=== PATIENT | male | born 1940 | race Caucasian/White ===

== ENCOUNTER 2022-04-15 06:04 | Inpatient (IN) | payer MEDICARE, SELFPAY ==
[2022-04-15] VITALS (8 sets, daily range): BP systolic 108–152; BP diastolic 60–77; PULSE 49–65; RESP 16–20; TEMP 36.6–36.8; O2SAT 93–99; BMI 24.2
--- NOTE | 2022-04-15 06:31 | CRLHL7_ITS ---
For Patients: As a result of the Century Cures Act, medical imaging exams and procedure reports are released immediately into your electronic medical record. You may view this report before your referring provider. If you have questions, please contact your health care provider. INDICATION: Left lower quadrant pain. TECHNIQUE: CT of the abdomen and pelvis without intravenous contrast. Coronal and sagittal reconstructions. COMPARISON: CTA chest, abdomen, pelvis 10/31/2021. FINDINGS: There is a stable small low-attenuation lesion in the left hepatic lobe which is too small to characterize but likely benign. Status post splenectomy. The unenhanced gallbladder, pancreas, and adrenal glands are normal in appearance. No biliary dilation. Tiny nonobstructing right renal caliceal stone. Small cyst in the upper pole of the right kidney. Multiple left renal cortical and parapelvic cysts. No hydronephrosis or ureteral dilation. No obstructing urinary calculi identified. The bladder is normal in appearance. Mildly enlarged prostate gland with calcifications. The stomach is distended and fluid-filled. There are multiple significantly dilated fluid-filled loops of proximal small bowel with transition point in the left lower quadrant compatible with obstruction. This is likely due to adhesions. Small bowel anastomosis in the anterior mid abdomen. Postoperative changes of the sigmoid colon. Mild amount of stool. The appendix is not identified. No intraperitoneal free air or fluid. No pneumatosis. Tiny fat containing ventral hernia just above the umbilicus. Small fat containing left inguinal hernia. Aortoiliac vascular calcifications. No lymphadenopathy. Degenerative changes of the spine. Mild elevation of the left hemidiaphragm. The lung bases are clear. Coronary artery calcifications. Pacemaker leads in the right atrium and right ventricle. IMPRESSION: Proximal small bowel obstruction with transition point in the left lower quadrant likely due to adhesions. Please note that all CT scans at this facility use dose modulation, iterative reconstruction, and/or weight-based dosing when appropriate to reduce radiation dose to as low as reasonably achievable. Dictated by Izzy Em MD @ 04/15/2022 8:15:15 AM (Electronically Signed)
--- NOTE | 2022-04-15 06:39 | ED.GENADULT ---
HPI - General Adult General Date Seen: 04/15/22 Chief complaint: Nausea/Vomiting Stated complaint: vomiting Time Seen by Provider: 04/15/22 06:06 Source: patient Mode of arrival: ambulatory Limitations: no limitations History of Present Illness HPI narrative: Patient is an 81-year-old male who presents with two days of recurrent vomiting. He has had no diarrhea, fevers, chills. He has not noticed any blood in the vomitus but he has been eating cherries which has discolored it of course. No black stool or blood in his stool but he has only passed a very small amount couple of days ago. He had a firm spot in his abdomen yesterday that has resolved. This was located in the left lower quadrant. He denies runny nose or cough. He has some generalized aching but this is not severe. He has a history of diverticulitis with bowel obstruction requiring colostomy. This was later taken down. This occurred about 12 years ago. He has eaten very little but has been able to keep some fluids down. Related Data Home Medications Medication Instructions Recorded Confirmed amlodipine 10 mg tablet 5 mg PO DAILY 04/15/22 04/15/22 apixaban 2.5 mg tablet (Eliquis) 2.5 mg PO BID 04/15/22 04/15/22 aspirin 81 mg chewable tablet 1 tab PO DAILY 04/15/22 04/15/22 atorvastatin 20 mg tablet 20 mg PO DAILY 04/15/22 04/15/22 levetiracetam 500 mg tablet 500 mg PO BID 04/15/22 04/15/22 lisinopril 10 mg tablet 10 mg PO DAILY 04/15/22 04/15/22 metoprolol succinate 50 mg 50 mg PO DAILY 04/15/22 04/15/22 tablet,extended release 24 hr Allergies Allergy/AdvReac Type Severity Reaction Status Date / Time No Known Drug Allergies Allergy Verified 04/15/22 06:17 Review of Systems Status of ROS: Reports: 10 or more systems reviewed and unremarkable except as noted in History and below [facility] Medical History (Updated 04/15/22 @ 08:35 by Brandon Quinn MD) Afib Basal cell carcinoma Coronary artery disease CVA (cerebral vascular accident) Diverticulitis History of cardiac arrest History of complete heart block Pacemaker Surgical History (Updated 07/27/22 @ 06:20 by Ashlyn Verma RN) History of appendectomy History of colostomy Post-splenectomy Social History Smoking Status: Never smoker Do you use any of these nicotine containing products: None Second hand tobacco smoke exposure: No How often do you have a drink containing alcohol: 2-4 times a month How many standard drinks containing alcohol do you have on a typical day: 1 or 2 How often do you have six or more drinks on one occasion: Never AUDIT-C Alcohol total score: 2 Non-prescribed substance use: denies use Exam Narrative: Exam Narrative: Vitals noted. HEENT: Conjunctiva clear. Tympanic membranes are pearly white bilaterally. Posterior pharynx is clear without erythema or exudate. Neck is supple without adenopathy, thyromegaly, carotid bruit. Lungs: Clear to auscultation in all gonzalez. No wheezes, rales, rhonchi. Heart: Regular rate and rhythm without murmur. Abdomen: Soft and nontender. No guarding, rigidity, rebound. Bowel sounds are normal. No palpable masses. Old healed surgical scars. Extremities: No cyanosis or edema. Good distal pulses. Skin: No abnormalities noted of the exposed skin. Neurologic: Awake, alert, fully oriented. Neurologic exam is nonfocal. Const: Vital Signs, click to edit/add: Vital Signs - 24 hr 04/15/22 06:14 Temperature 97.8 F Pulse Rate [Right Pulse Oximeter] 65 Respiratory Rate 16 Blood Pressure [Ri ght Upper Arm] 150/77 H Pulse Oximetry 95 Course Course Hospital Course: Patient is seen and examined. I have ordered a L of normal saline and 4 mg of IV Zofran. Labs and CT scan of his abdomen are ordered. Reevaluation(s) Reevaluation #1: Patient's labs have returned normal. He has had no vomiting or pain. CT confirms a proximal small-bowel obstruction likely due to adhesions. We have not placed an NG tube at this time. I spoke with Dr. Gallo from surgery and Dr. Silva from the hospital service and we will plan to admit. COVID test is ordered. Vital Signs Vital signs: Initial Vital Signs Temperature 97.8 F 04/15/22 06:14 Temperature Source Temporal Artery Scan 04/15/22 06:14 Pulse Rate 65 04/15/22 06:14 Pulse Rhythm 04/15/22 06:14 Respiratory Rate 16 04/15/22 06:14 Blood Pressure 150/77 H 04/15/22 06:14 Blood Pressure Mean 101 04/15/22 06:14 Blood Pressure Position Sitting 04/15/22 06:14 Pulse Oximetry 95 04/15/22 06:14 Oxygen Delivery Method 04/15/22 06:14 Vital Signs Temperature 97.8 F 04/15/22 06:14 Pulse Rate 65 04/15/22 06:14 Respiratory Rate 16 04/15/22 06:14 Blood Pressure 150/77 H 04/15/22 06:14 Pulse Oximetry 95 04/15/22 06:14 Temperature 97.8 F 04/15/22 06:14 Pulse Rate 65 04/15/22 06:14 Respiratory Rate 16 04/15/22 06:14 Blood Pressure 150/77 H 04/15/22 06:14 Pulse Oximetry 95 04/15/22 06:14 Medical Decision Making Lab Data Labs: Lab Results 04/15/22 04/15/22 Range/Units 06:40 06:41 WBC 11.89 H (4.50-11.00) K/uL RBC 4.26 L (4.30-5.90) m/uL Hgb 13.1 L (13.5-17.5) gm/dL Hct 39.8 (37.0-53.0) % MCV 93 (80-100) fL MCH 31 (26-34) pg MCHC 33 (32-36) gm/dL RDW Coeff of Sera 14.1 (11.5-15.5) % Plt Count 282 (140-440) K/uL Neut % (Auto) 86.6 H (42.0-72.0) % Lymph % (Auto) 6.8 L (20-44) % Hitchcock % (Auto) 5.6 (0.0-11.0) % Eos % (Auto) 0.1 (0.0-7.0) % Baso % (Auto) 0.2 (0.0-3.0) % Neut # (Auto) 10.30 H (1.7-7.0) K/uL Lymph # (Auto) 0.80 L (0.90-2.90) K/uL Hitchcock # (Auto) 0.70 (0.00-0.90) K/UL Eos # (Auto) 0.00 (0.00-0.50) K/uL Baso # (Auto) 0.00 (0.00-0.30) K/uL Abs Immat Gran (auto) 0.08 (0.00-0.30) K/uL Sodium 138 (135-149) mmol/L Potassium 4.4 (3.6-5.1) mmol/L Chloride 102 (96-114) mmol/L Carbon Dioxide 27 (20-32) mmol/L BUN 28 (7-30) mg/dL Creatinine 1.3 (0.5-1.5) mg/dL Estimated Creat Clear 39.53 Estimated GFR 55 ml/min Glucose 188 H (60-115) mg/dL Calcium 9.5 (8.4-10.6) mg/dL Total Bilirubin 1.1 (0.1-1.5) mg/dL Direct Bilirubin 0.2 (0.0-0.5) mg/dL AST 31 (12-35) U/L ALT 36 (4-50) U/L Alkaline Phosphatase 110 (40-150) U/L Total Protein 7.7 (6.0-8.3) g/dL Albumin 4.3 (3.3-5.0) g/dL Lipase 51 (23-300) U/L Discharge Plan Discharge Clinical Impression: SBO (small bowel obstruction) Patient Disposition: Admitted As Inpatient Condition: Stable Activity Level: Activity as Tolerated Diet Detail: NPO
[2022-04-15] MEDS: 0.9 % SODIUM CHLORIDE 1000 ml 1,000 ML IV (06:42)
[2022-04-15] MEDS: ONDANSETRON 2 MG/ML inj 4 MG IVP ×2 (06:42→11:10)
[2022-04-15 06:47] LABS: Basophils Percent Auto 0.2 % (0.0-3.0); Eosinophils Percent Auto 0.1 % (0.0-7.0); Hematocrit 39.8 % (37.0-53.0); Hemoglobin* 13.1 gm/dL (13.5-17.5); Immature Granulocytes Abs Auto 0.08 K/uL (0.00-0.30); Lymphocytes Percent Auto 6.8 % (20-44); Mean Corpuscular HGB Conc 33 gm/dL (32-36); Mean Corpuscular Hemoglobin 31 pg (26-34); Mean Corpuscular Volume 93 fL (80-100); Monocytes Percent Auto 5.6 % (0.0-11.0); Neutrophils Percent Auto 86.6 % (42.0-72.0); Platelet Count* 282 K/uL (140-440); RDW Coefficient of Variation % 14.1 % (11.5-15.5); Red Blood Count 4.26 m/uL (4.30-5.90); White Blood Count* 11.89 K/uL (4.50-11.00)
[2022-04-15 06:51] LABS: Slide Review Reflex No
[2022-04-15 07:00] LABS: Albumin* 4.3 g/dL (3.3-5.0); Chloride* 102 mmol/L (96-114)
[2022-04-15 07:01] LABS: Potassium* 4.4 mmol/L (3.6-5.1); Sodium* 138 mmol/L (135-149)
[2022-04-15 07:03] LABS: Alkaline Phosphatase* 110 U/L (40-150); Aspartate Amino Transferase* 31 U/L (12-35); Bilirubin Direct* 0.2 mg/dL (0.0-0.5); Bilirubin Total* 1.1 mg/dL (0.1-1.5); Carbon Dioxide* 27 mmol/L (20-32); Creatinine* 1.3 mg/dL (0.5-1.5); Est. Creatinine Clearance* 39.53; Estimated Glomerular Filt Rate 55 ml/min; Total Protein* 7.7 g/dL (6.0-8.3)
[2022-04-15 07:04] LABS: Alanine Aminotransferase* 36 U/L (4-50); Blood Urea Nitrogen* 28 mg/dL (7-30); Calcium* 9.5 mg/dL (8.4-10.6); Glucose* 188 mg/dL (60-115); Lipase* 51 U/L (23-300)
--- NOTE | 2022-04-15 07:51 | ED.NURSE ---
patient is sleeping in the bed and with tv on.
--- NOTE | 2022-04-15 08:42 | ED.NURSE ---
township supervisor given heads up at [phone]
--- NOTE | 2022-04-15 09:04 | W.PC.EDHO ---
Primary Language: Preferred Language: Orientation Status: [] Alert & Oriented [] Slight Confusion [] Known Dx Dementia Transfers By: [] Assist of 1 [] Assist of 2 [] Lift Active Medications Generic Name Dose Route Start Last Admin Trade Name Freq PRN Reason Stop Dose Admin Amlodipine Besylate 2.5 mg 04/15/22 09:00 04/15/22 07:10 Amlodipine 10 Mg Tablet PO Not Given DAILY SARI Lisinopril 5 mg 04/15/22 09:00 04/15/22 07:10 Lisinopril 10 Mg Tablet PO Not Given DAILY SARI Discontinued Medications Generic Name Dose Route Start Last Admin Trade Name Freq PRN Reason Stop Dose Admin Sodium Chloride 1,000 mls @ 1,000 mls/hr 04/15/22 06:32 04/15/22 06:42 0.9 % Sodium Chloride 1000 Ml IV 04/15/22 07:31 1,000 mls/hr .Q1H ONE Administration Ondansetron HCl 4 mg 04/15/22 06:31 04/15/22 06:42 Ondansetron 2 Mg/Ml Inj IVP 04/15/22 06:32 4 mg ONCE ONE Administration Description of Symptoms ED Triage Present Problem 2d ago ate bag of cherries, vomited at least a Description dozen times yesterday, still vomiting today. comes in stating purple vomit, denies pain. last bm 2d ago. states maybe fever because he felt hot. ED Triage Date of Onset of 04/14/22 Symptoms IV Insertion/Site Date of IV Line Insertion [ 04/15/22 Right Upper Arm] Oxygen Administration Pulse Oximetry 95 Oxygen Delivery Method Room Air
--- NOTE | 2022-04-15 09:21 | P.GSCN_ITS ---
History of Present Illness Consult details Consult date: 04/15/22 Narrative: the patient is an 81-year-old male who presents to the emergency department today with a several day history of nausea and vomiting. He states that he had a bowel movement last 3 days ago which is abnormal for him since he normally has bowel movements daily. He states that he has mild tenderness in his left lower abdomen. He had pain here previously when he had an episode of diverticulitis many years ago, however he thinks that this is less severe. He has not had a fever but he has felt clammy. Because he was unable to keep anything down he came in to be seen. He was found to have a small-bowel obstruction. His surgical history is significant for colostomy after episode of diverticulitis. He had a colostomy takedown subsequently. This was over a decade ago. He has had his appendix out as well. He has never had a bowel obstruction that he knows of. Review of Systems Status of ROS: Reports: 10 or more systems reviewed and unremarkable except as noted in History and below [facility] Medical History (Updated 04/15/22 @ 08:35 by Brandon Quinn MD) Afib Basal cell carcinoma Coronary artery disease CVA (cerebral vascular accident) Diverticulitis History of cardiac arrest History of complete heart block Pacemaker Surgical History (Updated 04/15/22 @ 06:20 by Ashlyn Verma RN) History of appendectomy History of colostomy Post-splenectomy Social History Highest level of school completed/degree received: high school graduate Smoking Status: Never smoker Do you use any of these nicotine containing products: None Second hand tobacco smoke exposure: No How often do you have a drink containing alcohol: 2-4 times a month How many standard drinks containing alcohol do you have on a typical day: 1 or 2 How often do you have six or more drinks on one occasion: Never AUDIT-C Alcohol total score: 2 Non-prescribed substance use: denies use Caffeine: No service: Yes ([employer]) Meds Home Medications and Allergies Home Medications Medication Instructions Recorded Confirmed Type amlodipine 10 mg tablet 5 mg PO DAILY 04/15/22 04/15/22 History apixaban 2.5 mg tablet (Eliquis) 2.5 mg PO BID 04/15/22 04/15/22 History aspirin 81 mg chewable tablet 1 tab PO DAILY 04/15/22 04/15/22 History atorvastatin 20 mg tablet 20 mg PO DAILY 04/15/22 04/15/22 History levetiracetam 500 mg tablet 500 mg PO BID 04/15/22 04/15/22 History lisinopril 5 mg tablet 5 mg PO DAILY 04/15/22 04/15/22 History metoprolol succinate 50 mg 50 mg PO DAILY 04/15/22 04/15/22 History tablet,extended release 24 hr Allergies Allergy/AdvReac Type Severity Reaction Status Date / Time No Known Drug Allergies Allergy Verified 04/15/22 06:17 Exam Narrative: Exam Narrative: General appearance: Alert, cooperative, and in no distress Eyes: PERRLA, eye lids clear, and sclera white HENT Head: Normocephalic Pulmonary: Clear to auscultation bilaterally Cardiovascular Heart: regular rate Extremities: warm and well perfused Gastrointestinal Abdominal: soft. nondistended. Mildly tender in the left lower quadrant. Surgical scars are faint. No hernias palpable. bowel sounds are pre sent. Musculoskeletal: Extremities: Upper: Both upper extremities have normal joint range of motion and intact strength. Lower: Both lower extremities have normal joint range of motion and intact strength. Skin: Normal skin color, texture, and turgor. No rashes or lesions. Neurologic: No focal deficits Psychiatric: Alert, oriented, cooperative, normal affect. Const: Vital Signs, click to edit/add: Vital Signs - 24 hr 04/15/22 06:14 Temperature 97.8 F Pulse Rate [Right Pulse Oximeter] 65 Respiratory Rate 16 Blood Pressure [Ri ght Upper Arm] 150/77 H Pulse Oximetry 95 Results Labs Labs: Abnormal lab results 04/15/22 04/15/22 Range/Units 06:40 06:41 WBC 11.89 H (4.50-11.00) K/uL RBC 4.26 L (4.30-5.90) m/uL Hgb 13.1 L (13.5-17.5) gm/dL Neut % (Auto) 86.6 H (42.0-72.0) % Lymph % (Auto) 6.8 L (20-44) % Neut # (Auto) 10.30 H (1.7-7.0) K/uL Lymph # (Auto) 0.80 L (0.90-2.90) K/uL Glucose 188 H (60-115) mg/dL Diabetes panel 04/15/22 Range/Units 06:40 Sodium 138 (135-149) mmol/L Potassium 4.4 (3.6-5.1) mmol/L Chloride 102 (96-114) mmol/L Carbon Dioxide 27 (20-32) mmol/L BUN 28 (7-30) mg/dL Creatinine 1.3 (0.5-1.5) mg/dL Glucose 188 H (60-115) mg/dL Calcium 9.5 (8.4-10.6) mg/dL AST 31 (12-35) U/L ALT 36 (4-50) U/L Alkaline Phosphatase 110 (40-150) U/L Total Protein 7.7 (6.0-8.3) g/dL Albumin 4.3 (3.3-5.0) g/dL Calcium panel 04/15/22 Range/Units 06:40 Calcium 9.5 (8.4-10.6) mg/dL Albumin 4.3 (3.3-5.0) g/dL Pituitary panel 04/15/22 Range/Units 06:40 Sodium 138 (135-149) mmol/L Potassium 4.4 (3.6-5.1) mmol/L Chloride 102 (96-114) mmol/L Carbon Dioxide 27 (20-32) mmol/L BUN 28 (7-30) mg/dL Creatinine 1.3 (0.5-1.5) mg/dL Glucose 188 H (60-115) mg/dL Calcium 9.5 (8.4-10.6) mg/dL Adrenal panel 04/15/22 Range/Units 06:40 Sodium 138 (135-149) mmol/L Potassium 4.4 (3.6-5.1) mmol/L Chloride 102 (96-114) mmol/L Carbon Dioxide 27 (20-32) mmol/L BUN 28 (7-30) mg/dL Creatinine 1.3 (0.5-1.5) mg/dL Glucose 188 H (60-115) mg/dL Calcium 9.5 (8.4-10.6) mg/dL Total Bilirubin 1.1 (0.1-1.5) mg/dL AST 31 (12-35) U/L ALT 36 (4-50) U/L Alkaline Phosphatase 110 (40-150) U/L Total Protein 7.7 (6.0-8.3) g/dL Albumin 4.3 (3.3-5.0) g/dL All other labs normal. Imaging CT scan - pelvis: report reviewed and image reviewed (Patient: Favian Crooks RMR#: [id number]: [id number]:[id number]: EDService Date: 04/15/22Attending Dr: Ordering Physician: Brandon Quinn M.D. Date of Service: 04/15/22 Procedure(s): CT abdomen pelvis wo con Accession Number(s): [id number] cc: Brandon Quinn M.D.; Fabienne Gill ) Assessment and Plan Assessment and plan (1) SBO (small bowel obstruction): Status: Acute (2) Afib: Status: Acute (3) Pacemaker: Status: Acute Plan Patient is an 81-year-old male with a small-bowel obstruction likely secondary to adhesions given his surgical history. There is a transition point noted. Because of this I recommend a Gastrografin challenge. I explained to the patient that often times small-bowel obstructions will resolve however the Gastrografin may be diagnostic as well as therapeutic. If he develops severe nausea and vomiting I would recommend an NG to be placed, however since he is quite comfortable now with minimal pain or distension I think it is okay to hold off. I explained that if his obstruction does not resolve 48 hours after consuming the Gastrografin the we would recommend surgery. His Eliquis should be put on hold at this point in the event that he would need surgery going forward. I did place order for the Gastrografin and we will obtain serial x- rays.
[2022-04-15 09:25] LABS: SARS PCR* Negative SARS-CoV-2 (Negative)
[2022-04-15] MEDS: LACTATED RINGERS 1000 ML 1,000 ML 100 ML IV ×2 (11:07→20:43)
--- NOTE | 2022-04-15 12:23 | P.IMHP_ITS ---
Hospitalist- H&P: HPI History of Present Illness Date Seen: 04/15/22 Chief complaint: vomiting Narrative: Favian Crooks is a 81 year old male with past medical history of appendectomy; hx of splenectomy; hx of colostomy, atrial fibrillation (on eliquis) presenting to ED for evaluation of abdominal pain. Over the past 24 hours he has had progressive worsening abdominal pain, crampy in nature. Associated symptoms have included nausea and vomiting. He denies chest pain, sob, fever, headache, dizziness. He continued to have dry heaving today. He presented to ED where notable workup included CT AP showed Proximal small bowel obstruction with transition point in the left lower quadrant likely due to adhesions. Review of Systems Status of ROS: Reports: 10 or more systems reviewed and unremarkable except as noted in History and below [facility] Medical History Afib Basal cell carcinoma Coronary artery disease CVA (cerebral vascular accident) Diverticulitis History of cardiac arrest History of complete heart block Pacemaker Surgical History History of appendectomy History of colostomy Post-splenectomy Social History Highest level of school completed/degree received: high school graduate Smoking Status: Never smoker Do you use any of these nicotine containing products: None Second hand tobacco smoke exposure: No How often do you have a drink containing alcohol: 2-4 times a month How many standard drinks containing alcohol do you have on a typical day: 1 or 2 How often do you have six or more drinks on one occasion: Never AUDIT-C Alcohol total score: 2 Non-prescribed substance use: denies use Caffeine: No service: Yes ([employer]) Meds Home Medications and Allergies Home Medications Medication Instructions Recorded Confirmed Type amlodipine 10 mg tablet 5 mg PO DAILY 04/15/22 04/15/22 History apixaban 2.5 mg tablet (Eliquis) 2.5 mg PO BID 04/15/22 04/15/22 History aspirin 81 mg chewable tablet 1 tab PO DAILY 04/15/22 04/15/22 History atorvastatin 20 mg tablet 20 mg PO DAILY 04/15/22 04/15/22 History levetiracetam 500 mg tablet 500 mg PO BID 04/15/22 04/15/22 History lisinopril 5 mg tablet 5 mg PO DAILY 04/15/22 04/15/22 History metoprolol succinate 50 mg 50 mg PO DAILY 04/15/22 04/15/22 History tablet,extended release 24 hr Allergies Allergy/AdvReac Type Severity Reaction Status Date / Time No Known Drug Allergies Allergy Verified 04/15/22 06:17 Exam Narrative: Exam Narrative: Gen: No acute distress HEENT: NCAT EOMI MMM CV: Bradycardic; normal s1 s2 LUngs: CTAB Abd: MIld distention; no rebound or guarding MSK: age appropriate muscle mass Neuro: Alert, oriented, CN grossly intact Psyche: appropriate affect Skin; Warm, dry no rash on face Const: Vital Signs, click to edit/add: Vital Signs - 24 hr 04/15/22 06:14 04/15/22 07:05 04/15/22 09:05 Temperature 97.8 F Pulse Rate [Right Pulse Oximeter] 65 55 L 49 L Respiratory Rate 16 18 16 Blood Pressure [Ri ght Arm] Blood Pressure [Ri ght Upper Arm] 150/77 H 110/62 108/60 Pulse Oximetry 95 96 97 04/15/22 10:54 04/15/22 11:27 04/15/22 11:49 Temperature 98.2 F Pulse Rate [Right Pulse Oximeter] Respiratory Rate 20 20 Blood Pressure [Ri ght Arm] 152/72 H Blood Pressure [Ri ght Upper Arm] Pulse Oximetry 95 95 96 Hospitalist - H&P: Result Labs Labs: Short CBC 04/15/22 Range/Units 06:41 WBC 11.89 H (4.50-11.00) K/uL Hgb 13.1 L (13.5-17.5) gm/dL Hct 39.8 (37.0-53.0) % Plt Count 282 (140-440) K/uL BMP 04/15/22 06:40 Sodium 138 Potassium 4.4 Chloride 102 Carbon Dioxide 27 BUN 28 Creatinine 1.3 Glucose 188 H Calcium 9.5 Liver Function 04/15/22 Range/Units 06:40 Total Bilirubin 1.1 (0.1-1.5) mg/dL Direct Bilirubin 0.2 (0.0-0.5) mg/dL AST 31 (12-35) U/L ALT 36 (4-50) U/L Alkaline Phosphatase 110 (40-150) U/L Albumin 4.3 (3.3-5.0) g/dL Imaging CT scan - abdomen: Radiologist's impression: Proximal small bowel obstruction with transition point in the left lower quadrant likely due to adhesions. Assessment and Plan Assessment and plan (1) SBO (small bowel obstruction): Status: Acute Plan Assessment: Favian Crooks is a 81 year old male with past medical history of appendectomy; hx of splenectomy; hx of colostomy, atrial fibrillation (on eliquis) presenting to ED for evaluation of abdominal pain. He presented to ED where notable workup included CT AP showed Proximal small bowel obstruction with transition point in the left lower quadrant likely due to adhesions. 1. Proximal Small Bowel obstruction -npo -MIVF -pain control -antiemetics -surgery consult -Xray/SBFT 2. Hx of Atrial Fibrillation -hold eliquis -hold metoprolol due to bradycardia 3. Hx of HTN -hold antihypertensives 4. Hx of CVA -hold eliquis -hold aspirin and statin 5. Hx of Seizure d/o -continue keppra; switch to IV Code-Full code DVT ppx -SCD
--- NOTE | 2022-04-15 16:41 | PC.NURSE ---
Pt has been on Keppra PO at home he has filled the medication at [facility] and the medication was ordered by Dr. Gill in December, per [place] pharmacy.
--- NOTE | 2022-04-15 18:00 | CRLHL7_ITS ---
For Patients: As a result of the Century Cures Act, medical imaging exams and procedure reports are released immediately into your electronic medical record. You may view this report before your referring provider. If you have questions, please contact your health care provider. Indication: Small-bowel obstruction Technique: Supine images of the abdomen Comparison: Portions of a CT from April 15 2022 Findings: The small bowel appears to be slightly less dilated than it did on the CT. There is contrast or other radiodense material in the stomach, duodenum and proximal small bowel. No obvious free air Impression: Small bowel appears slightly less dilated than it did previously. Dictated by Demetrius Moses MD @ 04/15/2022 6:26:04 PM (Electronically Signed)
--- NOTE | 2022-04-15 18:45 | PC.NURSE ---
shift [id number] pt admitted to unit from ED, zofran IV given for nausea. PT NPO, abdomen firm and tender. Pt had 1 observed large loose stool in toilet and three more reported BMs loose per pt report. abdomen soft and non tender after BM, no c/o nausea or vomiting. MD notified. pt comfortable and cooperative at this time.
[2022-04-16 03:00] VITALS: BP 156/76; PULSE 60; RESP 18; TEMP 36.6; O2SAT 97
--- NOTE | 2022-04-16 05:35 | PC.NURSE ---
Shift 7p-7a: Pt. AOx4, following commands. VSS on RA. Pt. receiving LR infusion at 100mL/hr, ambulating to toilet w/o difficulty, voiding well. Plan for repeat KUB diagnostic this AM to see if pt. is clearing contrast from yesterday.
[2022-04-16] MEDS: LACTATED RINGERS 1000 ML 1,000 ML 100 ML IV (06:23)
--- NOTE | 2022-04-16 07:00 | CRLHL7_ITS ---
For Patients: As a result of the Century Cures Act, medical imaging exams and procedure reports are released immediately into your electronic medical record. You may view this report before your referring provider. If you have questions, please contact your health care provider. Indication: Small bowel obstruction. Gastrografin challenge. Technique: Abdomen 2 view. Comparison: April 15, 2022. Findings/Impression: Bowel: Previously ingested oral contrast is seen mostly in the proximal colon and rectum. Bowel pattern is within normal limits. No overt obstructive changes. Soft tissues: No sign of free air. No sign of soft tissue mass. No suspicious calcifications. Bones: Unremarkable for age. Dictated by Freddy Torres MD @ 04/16/2022 7:24:47 AM (Electronically Signed)
[2022-04-16 07:51] LABS: Chloride* 112 mmol/L (96-114); Potassium* 4.9 mmol/L (3.6-5.1); Sodium* 139 mmol/L (135-149)
[2022-04-16 07:53] LABS: Creatinine* 1.1 mg/dL (0.5-1.5); Est. Creatinine Clearance* 46.72; Estimated Glomerular Filt Rate 67 ml/min
[2022-04-16 07:54] LABS: Blood Urea Nitrogen* 24 mg/dL (7-30); Calcium* 8.9 mg/dL (8.4-10.6); Carbon Dioxide* 20 mmol/L (20-32); Glucose* 97 mg/dL (60-115)
[2022-04-16 07:55] LABS: Basophils Percent Auto 0.5 % (0.0-3.0); Eosinophils Percent Auto 4.9 % (0.0-7.0); Hematocrit 37.1 % (37.0-53.0); Hemoglobin* 12.3 gm/dL (13.5-17.5); Immature Granulocytes Abs Auto 0.04 K/uL (0.00-0.30); Lymphocytes Percent Auto 19.7 % (20-44); Mean Corpuscular HGB Conc 33 gm/dL (32-36); Mean Corpuscular Hemoglobin 31 pg (26-34); Mean Corpuscular Volume 94 fL (80-100); Monocytes Percent Auto 14.6 % (0.0-11.0); Platelet Count* 253 K/uL (140-440); RDW Coefficient of Variation % 14.2 % (11.5-15.5); Red Blood Count 3.97 m/uL (4.30-5.90)
[2022-04-16 07:56] LABS: Slide Review Reflex No
--- NOTE | 2022-04-16 10:05 | PM.GSPN ---
Subjective Subjective Date Seen: 04/16/22 Interval history: The patient is doing well today. He has had copious bowel movements yesterday and overnight. He has no abdominal pain. He is hungry and would like to discharge home. Exam Narrative: Exam Narrative: General: No acute distress CV: Regular rate respiratory: Clear to auscultation bilaterally abdomen: Soft, nontender, nondistended. Const: Vital Signs, click to edit/add: Vital Signs - 24 hr 04/15/22 10:54 04/15/22 11:27 04/15/22 11:49 Temperature 98.2 F Pulse Rate [Pulse Oximeter] Respiratory Rate 20 20 Blood Pressure [Ri ght Arm] 152/72 H Pulse Oximetry 95 95 96 04/15/22 19:00 04/15/22 22:49 04/16/22 03:00 Temperature 98.1 F 98.2 F 97.8 F Pulse Rate [Pulse Oximeter] 60 Respiratory Rate 18 18 18 Blood Pressure [Ri ght Arm] 137/67 138/71 156/76 H Pulse Oximetry 93 99 97 Labs/Imaging Labs Labs: White blood cell count remains elevated at 11, however no left shift. Imaging Imaging: x-ray reviewed. No signs of obstruction. Contrast is within the colon. Progress Note: A&P Assessment and plan (1) SBO (small bowel obstruction): Status: Acute Plan The patient is an 81-year-old male with a small-bowel obstruction, now resolved. This is evidenced by his clinical improvement as well as his x-ray. He may advance to regular diet discharge home. He can restart his Eliquis. He should follow up with his primary care provider parianna.
[2022-04-16 10:09] VITALS: PULSE 60; RESP 18
[2022-04-16 10:11] VITALS: BP 150/78; PULSE 60; RESP 18; TEMP 36.7; O2SAT 97
--- NOTE | 2022-04-16 12:59 | PC.NURSE ---
Pt given d/c instructions and verbalized understanding. D/c home and denies nausea or pain. SL removed intact.
== END 2022-04-16 12:18 | disposition home or self-care (01) | DRG 389 ==
LOC: ED 08:35 → MEDSURG 15:19
PROVIDERS: Family Medicine; Admitting Provider Hospitalist; Emergency Provider Family Medicine; PCP Family Medicine; Visit Provider Hospitalist
DX: K56.50 Intestinal adhesions [bands], unspecified as to partial versus complete obstruction (principal); I44.2 Atrioventricular block, complete; I48.91 Unspecified atrial fibrillation; I25.10 Atherosclerotic heart disease of native coronary artery without angina pectoris; Z86.73 Personal history of transient ischemic attack (TIA), and cerebral infarction without residual deficits; Z95.0 Presence of cardiac pacemaker; Z79.01 Long term (current) use of anticoagulants; I10 Essential (primary) hypertension; Z90.81 Acquired absence of spleen; G40.909 Epilepsy, unspecified, not intractable, without status epilepticus; Z85.828 Personal history of other malignant neoplasm of skin
CPT/HCPCS: 36415; 74018; 74176; 80048; 80076; 83690; 85025; 87635; 99284; 99285; J1953; J2405; J7030; J7120; Q9963

== ENCOUNTER 2022-06-09 14:52 | Emergency (ER) | payer MEDICARE, SELFPAY ==
[2022-06-09] VITALS (32 sets, daily range): BP systolic 59–223; BP diastolic 39–118; PULSE 44–109; RESP 13–25; TEMP 37.1; O2SAT 88–100; BMI 25.0
--- NOTE | 2022-06-09 15:17 | ED_ITS ---
HPI - General Adult General Chief complaint: Abdominal Pain Stated complaint: Sharp stomach pains, L hand numb Time Seen by Provider: 06/09/22 15:09 History of Present Illness HPI narrative: This 81-year-old male is brought in by a friend of the family. He reports some tingling sensation in his left hand this started about an hour and half prior to arrival, about 2 p.m. today. He did not have any weakness or altered speech. He is not showing any unilateral weakness. On the way here he began having rather severe abdominal pain just left of midline. At the time of my initial visit his neurologic exam is normal but he is rather uncomfortable with this abdominal pain. He states that he has a history of kidney stones. He does not report any dysuria or flank pain. Related Data Home Medications Medication Instructions Recorded Confirmed amlodipine 10 mg tablet 5 mg PO DAILY 04/15/22 04/15/22 apixaban 2.5 mg tablet (Eliquis) 2.5 mg PO BID 04/15/22 04/15/22 aspirin 81 mg chewable tablet 1 tab PO DAILY 04/15/22 04/15/22 atorvastatin 20 mg tablet 20 mg PO DAILY 04/15/22 04/15/22 levetiracetam 500 mg tablet 500 mg PO BID 04/15/22 04/15/22 lisinopril 5 mg tablet 5 mg PO DAILY 04/15/22 04/15/22 metoprolol succinate 50 mg 50 mg PO DAILY 04/15/22 04/15/22 tablet,extended release 24 hr Allergies Allergy/AdvReac Type Severity Reaction Status Date / Time No Known Drug Allergies Allergy Verified 04/15/22 06:17 Review of Systems Status of ROS: Reports: 10 or more systems reviewed and unremarkable except as noted in History and below Narrative: Constitutional: No fevers, no weight gain or loss. Eyes: No discharge. No vision changes. HENT: No congestion, no sore throat, no ear pain. Cardiovascular: No chest pain, no palpitations. Respiratory: No shortness of breath, no wheezes, no cough. Gastrointestinal: No vomiting, no diarrhea. Abdominal pain as described above. Genitourinary: No dysuria, no hematuria. Musculoskeletal: Normal range of motion. Skin: No rashes, no pruritis. Neurological: No dizziness, weakness, speech change. He reports altered sensation in his left hand. Endo/Heme/Allergies: No bruising or bleeding. No polydipsia. Pysch: no suicidality, no anxiety, no insomnia. All other systems reviewed and are negative. [facility] Medical History Afib Basal cell carcinoma Coronary artery disease CVA (cerebral vascular accident) Diverticulitis History of cardiac arrest History of complete heart block Pacemaker Surgical History History of appendectomy History of colostomy Post-splenectomy Social History Highest level of school completed/degree received: high school graduate Smoking Status: Never smoker Do you use any of these nicotine containing products: None Second hand tobacco smoke exposure: No How often do you have a drink containing alcohol: 2-4 times a month How many standard drinks containing alcohol do you have on a typical day: 1 or 2 How often do you have six or more drinks on one occasion: Never AUDIT-C Alcohol total score: 2 Non-prescribed substance use: denies use Caffeine: No service: Yes ([employer]) Exam 2 Narrative: Exam Narrative: Constitutional: Well-developed, well-nourished, no acute distress. HEENT: Normocephalic, atraumatic. Neck: Normal range of motion. Nontender. Supple. Heart: Regular. No murmurs. Normal rate. Intact distal pulses. Lungs: Clear to auscultation. No chest discomfort. No wheezes, rhonchi, or rales. Abdomen: Normal bowel sounds. Tenderness in the mid upper abdomen just left of midline. No rebound tenderness. Genitalia: Deferred. Back: No midline tenderness. Normal range of motion. Extremities: Normal range of motion. No injury. Skin: Intact. No rash. Warm. No erythema or pallor. Neurologic: No weakness. Alert and oriented. He reports altered sensation in his left hand. No facial asymmetry. Tongue is midline. Salt Lifter strength is equal bilaterally. No pronator drift. He is able to raise each leg from the bed to touch my hand. Psychiatric: No suicidality. No anxiety or depression. No insomnia. Nursing notes and vitals signs are reviewed. Const: Vital Signs, click to edit/add: Vital Signs - 24 hr 06/09/22 15:04 06/09/22 15:50 06/09/22 15:51 Temperature 98.8 F Pulse Rate 93 109 H Pulse Rate [Right Pulse Oximeter] 72 Respiratory Rate 18 Blood Pressure 84/45 L Blood Pressure [Ri ght Upper Arm] 126/89 Pulse Oximetry 96 98 [facility] 06/09/22 15:52 06/09/22 15:55 06/09/22 15:58 Temperature Pulse Rate 105 H 72 80 Pulse Rate [Right Pulse Oximeter] Respiratory Rate Blood Pressure 83/56 L 116/93 H Blood Pressure [Ri ght Upper Arm] Pulse Oximetry 98 97 100 Oxygen Delivery [facility] 06/09/22 16:00 06/09/22 16:01 06/09/22 16:04 Temperature Pulse Rate 75 71 70 Pulse Rate [Right Pulse Oximeter] Respiratory Rate 16 Blood Pressure 110/51 L 74/46 L Blood Pressure [Ri ght Upper Arm] Pulse Oximetry 98 91 100 Oxygen Delivery [facility] 06/09/22 16:05 06/09/22 16:07 06/09/22 16:10 Temperature Pulse Rate 69 72 Pulse Rate [Right Pulse Oximeter] Respiratory Rate 24 16 22 Blood Pressure 80/55 L 59/40 L Blood Pressure [Ri ght Upper Arm] Pulse Oximetry 100 91 99 Oxygen Delivery [facility] 06/09/22 16:11 06/09/22 16:13 06/09/22 16:15 Temperature Pulse Rate 65 66 63 Pulse Rate [Right Pulse Oximeter] Respiratory Rate 20 18 18 Blood Pressure 68/39 L Blood Pressure [Ri ght Upper Arm] Pulse Oximetry 99 100 100 Oxygen Delivery [facility] 06/09/22 16:16 06/09/22 16:19 06/09/22 16:20 Temperature Pulse Rate 69 76 Pulse Rate [Right Pulse Oximeter] Respiratory Rate 21 17 25 H Blood Pressure 72/42 L 78/56 L Blood Pressure [Ri ght Upper Arm] Pulse Oximetry 100 97 96 [facility] 06/09/22 16:22 06/09/22 16:25 06/09/22 16:26 Temperature Pulse Rate 71 77 65 Pulse Rate [Right Pulse Oximeter] Respiratory Rate 18 20 13 Blood Pressure 77/47 L 75/39 L Blood Pressure [Ri ght Upper Arm] Pulse Oximetry 92 97 100 Oxygen Delivery [facility]od 06/09/22 16:28 06/09/22 16:30 06/09/22 16:31 Temperature Pulse Rate 68 70 74 Pulse Rate [Right Pulse Oximeter] Respiratory Rate 16 14 17 Blood Pressure 91/48 L 107/53 L Blood Pressure [Ri ght Upper Arm] Pulse Oximetry 100 97 97 Oxygen Delivery Me thod 06/09/22 16:34 06/09/22 16:35 06/09/22 16:37 Temperature Pulse Rate 80 81 85 Pulse Rate [Right Pulse Oximeter] Respiratory Rate 18 13 17 Blood Pressure 96/61 124/59 L Blood Pressure [Ri ght Upper Arm] Pulse Oximetry 95 100 94 Oxygen Delivery Me thod 06/09/22 16:40 06/09/22 16:41 06/09/22 15:24 Temperature Pulse Rate 92 92 Pulse Rate [Right Pulse Oximeter] 44 L Respiratory Rate 14 14 Blood Pressure 130/58 L Blood Pressure [Ri ght Upper Arm] Pulse Oximetry 95 95 Oxygen Delivery Me thod 06/09/22 15:31 Temperature Pulse Rate Pulse Rate [Right Pulse Oximeter] Respiratory Rate Blood Pressure Blood Pressure [Ri ght Upper Arm] 223/118 H Pulse Oximetry 88 Oxygen Delivery Me thod Room Air Course Vital Signs Vital signs: Initial Vital Signs Temperature 98.8 F 06/09/22 15:04 Temperature Source Temporal Artery Scan 06/09/22 15:04 Pulse Rate 72 06/09/22 15:04 Respiratory Rate 18 06/09/22 15:04 Blood Pressure 126/89 06/09/22 15:04 Blood Pressure Mean 101 06/09/22 15:04 Blood Pressure Position Sitting 06/09/22 15:04 Pulse Oximetry 96 06/09/22 15:04 Oxygen Delivery Method 06/09/22 15:04 Vital Signs Temperature 98.8 F 06/09/22 15:04 Pulse Rate 72 06/09/22 15:04 Respiratory Rate 18 06/09/22 15:04 Blood Pressure 126/89 06/09/22 15:04 Pulse Oximetry 96 06/09/22 15:04 Oxygen Delivery Method 06/09/22 15:04 Temperature 98.8 F 06/09/22 15:04 Pulse Rate 92 06/09/22 16:41 Respiratory Rate 14 06/09/22 16:41 Blood Pressure 130/58 L 06/09/22 16:40 Pulse Oximetry 95 06/09/22 16:41 Oxygen Delivery Method 06/09/22 15:31 Medical Decision Making MDM Narrative Medical decision making narrative: This patient comes in with altered sensation in his left hand and states that on the way here he began to have severe abdominal pain just left of midline. He was in constant movement because of the intense pain in his abdomen. He did tell me that he has a history of kidney stones but stated that this felt differently. His neuro exam on arrival was completely normal. His bung dropper strength was equal bilateral. Pronator drift was negative. No facial asymmetry and tongue is midline. He was able to raise each leg from the bed without difficulty. His initial EKG showed normal sinus rhythm without ST or T-wave abnormality. This patient is taking aspirin and Eliquis. He does not report headache. I went back to place orders including CT scan of the head and abdomen without contrast. During this process I was called back into the room as it was stated that the patient was having a seizure. As I arrived he was a bit cyanotic and rather stiff but not much clonus. He did receive a half a mg of Ativan intravenously at this time. I questioned whether he was having a cardiac event. I did not feel a pulse so a code blue was called and CPR was started. Pads were placed and he appeared to have pulses electrical activity. There was no pulse but a rhythm was present on the monitor. Ultrasound views of the heart did show some bradycardia at a rate about 40 beats per minute and poor contractility typical of pulseless electrical activity. The Yonatan machine was placed and CPR continued for approximately fiber 10 minutes. Throughout this time he was breathing occasionally on his own. His breathing was assisted with bag-valve mask. I noted several times that his pupils were not fixed and dilated. He did receive a mg of epinephrine intravenously at this time. He did return to spontaneous circulation and was breathing on his own. He remained unconscious. His initial blood pressure was a systolic value of around 200 and he showed atrial fibrillation with rapid ventricular response on the monitor. IV fluids were started. He did receive a total of 2 L of IV normal saline. His heart rate was around 140 beats per minute. He did receive 10 mg of diltiazem at that time which did bring his heart rate down into normal range. Additionally his blood pressure eventually decreased down below 100 also. Despite IV fluids his blood pressure was soft post cardiac arrest. He did receive a dobutamine drip at 10 micrograms/minute which brought his pressures up to 110-120. The patient was breathing and started to respond and interact a little bit. I spoke with an nitrocellulose operator at [facility], Dr. Stokes, who agreed to his transfer there. This patient was then intubated for transport. Anesthesia assisted in this process. He received 20 mg of etomidate for induction and then ketamine was administered in order to maintain better blood pressure. He received an initial dose of 200 mg of ketamine. Another 200 mg was administered and then a drip was started to maintain sedation. The patient's rhythm continues in atrial fibrillation with a controlled rate. Time spent in critical care of this patient was 80 minutes. Lab Data Labs: Lab Results 06/09/22 06/09/22 06/09/22 Range/Units 15:20 15:20 15:20 WBC 10.19 (4.50-11.00) K/uL RBC 3.99 L (4.30-5.90) m/uL Hgb 12.5 L (13.5-17.5) gm/dL Hct 38.9 (37.0-53.0) % MCV 98 (80-100) fL MCH 31 (26-34) pg MCHC 32 (32-36) gm/dL RDW Coeff of Sera 13.6 (11.5-15.5) % Plt Count 190 (140-440) K/uL Neut % (Auto) 50.9 (42.0-72.0) % Lymph % (Auto) 26.4 (20-44) % Nicholas % (Auto) 16.0 H (0.0-11.0) % Eos % (Auto) 5.7 (0.0-7.0) % Baso % (Auto) 0.6 (0.0-3.0) % Neut # (Auto) 5.19 (1.7-7.0) K/uL Lymph # (Auto) 2.69 (0.90-2.90) K/uL Nicholas # (Auto) 1.60 H (0.00-0.90) K/UL Eos # (Auto) 0.58 H (0.00-0.50) K/uL Baso # (Auto) 0.06 (0.00-0.30) K/uL Abs Immat Gran (auto) 0.04 (0.00-0.30) K/uL INR 0.99 (0.91-1.10) Sodium 139 (135-149) mmol/L Potassium 4.5 (3.6-5.1) mmol/L Chloride 103 (96-114) mmol/L Carbon Dioxide 24 (20-32) mmol/L BUN 24 (7-30) mg/dL Creatinine 1.4 (0.5-1.5) mg/dL Estimated Creat Clear 35.39 Estimated GFR 50 ml/min Glucose 167 H (60-115) mg/dL Calcium 9.0 (8.4-10.6) mg/dL Urine Color (Yellow) Urine Appearance (Clear) Urine pH (5.0-8.5) Ur Specific [place] (1.000-1.030) Urine Protein (Negative) Urine Glucose (UA) (Negative) Urine Ketones (Negative) Urine Blood (Negative) Urine Nitrite (Negative) Urine Bilirubin (Negative) Urine Urobilinogen (0.2-1.0) Ur Leukocyte Esterase (Negative) SARS-CoV-2 Ag (Rapid) (Negative) POC Troponin I (0.01-0.04) ng/ml 06/09/22 06/09/22 06/09/22 Range/Units 15:25 15:40 Unknown WBC (4.50-11.00) K/uL RBC (4.30-5.90) m/uL Hgb (13.5-17.5) gm/dL Hct (37.0-53.0) % MCV (80-100) fL MCH (26-34) pg MCHC (32-36) gm/dL RDW Coeff of Sera (11.5-15.5) % Plt Count (140-440) K/uL Neut % (Auto) (42.0-72.0) % Lymph % (Auto) (20-44) % Nicholas % (Auto) (0.0-11.0) % Eos % (Auto) (0.0-7.0) % Baso % (Auto) (0.0-3.0) % Neut # (Auto) (1.7-7.0) K/uL Lymph # (Auto) (0.90-2.90) K/uL Nicholas # (Auto) (0.00-0.90) K/UL Eos # (Auto) (0.00-0.50) K/uL Baso # (Auto) (0.00-0.30) K/uL Abs Immat Gran (auto) (0.00-0.30) K/uL INR (0.91-1.10) Sodium (135-149) mmol/L Potassium (3.6-5.1) mmol/L Chloride (96-114) mmol/L Carbon Dioxide (20-32) mmol/L BUN (7-30) mg/dL Creatinine (0.5-1.5) mg/dL Estimated Creat Clear Estimated GFR ml/min Glucose (60-115) mg/dL Calcium (8.4-10.6) mg/dL Urine Color Yellow (Yellow) Urine Appearance Clear (Clear) Urine pH 6.5 (5.0-8.5) Ur Specific [place] 1.010 (1.000-1.030) Urine Protein Trace A (Negative) Urine Glucose (UA) Negative (Negative) Urine Ketones Negative (Negative) Urine Blood 2+ A (Negative) Urine Nitrite Negative (Negative) Urine Bilirubin Negative (Negative) Urine Urobilinogen 0.2 (0.2-1.0) Ur Leukocyte Esterase Negative (Negative) SARS-CoV-2 Ag (Rapid) negative (Negative) POC Troponin I 0.02 (0.01-0.04) ng/ml ECG Data Attestation: I personally reviewed and interpreted this ECG as follows: Interpretation: Normal sinus rhythm with occasional PVCs. There are no ST or T-wave abnormali ties. Rate is 70 beats per minute. Repeat EKG after cardiac arrest and ROSC showed atrial fibrillation with rapid ventricular response and heart rate around 140 beats per minute. There were ST wave abnormalities also. Critical Care Time Critical Care Time Total Critical Care Time in Minutes: 80 Discharge Plan Discharge Clinical Impression: Cardiac arrest, Afib Patient Disposition: [facility] Condition: Critical Prescriptions: No Action atorvastatin 20 mg tablet 20 mg PO DAILY metoprolol succinate 50 mg tablet extended release 24 hr 50 mg PO DAILY levetiracetam 500 mg tablet 500 mg PO BID amlodipine 10 mg tablet 5 mg PO DAILY aspirin 81 mg tablet,chewable 1 tab PO DAILY Eliquis 2.5 mg tablet 2.5 mg PO BID lisinopril 5 mg tablet 5 mg PO DAILY Stand Alone Forms: Rollbar Info Instructions
[2022-06-09] MEDS: LORazepam 2 MG/ML inj 0.5 MG IV (15:24)
[2022-06-09] MEDS: EPINEPHrine 0.1 MG/ML SYRINGE 1 MG IVP (15:26)
[2022-06-09] MEDS: dilTIAZem 5 MG/ML inj 10 MG IVP (15:35)
[2022-06-09 15:46] LABS: Troponin, Point-of-Care* 0.02 ng/ml (0.01-0.04)
[2022-06-09 15:47] LABS: Basophils Absolute Auto 0.06 K/uL (0.00-0.30); Basophils Percent Auto 0.6 % (0.0-3.0); Eosinophils Absolute Auto 0.58 K/uL (0.00-0.50); Eosinophils Percent Auto 5.7 % (0.0-7.0); Hematocrit 38.9 % (37.0-53.0); Hemoglobin* 12.5 gm/dL (13.5-17.5); Immature Granulocytes Abs Auto 0.04 K/uL (0.00-0.30); Lymphocytes Absolute Auto 2.69 K/uL (0.90-2.90); Lymphocytes Percent Auto 26.4 % (20-44); Mean Corpuscular HGB Conc 32 gm/dL (32-36); Mean Corpuscular Hemoglobin 31 pg (26-34); Mean Corpuscular Volume 98 fL (80-100); Neutrophils Absolute Auto 5.19 K/uL (1.7-7.0); Neutrophils Percent Auto 50.9 % (42.0-72.0); Platelet Count* 190 K/uL (140-440); RDW Coefficient of Variation % 13.6 % (11.5-15.5); Red Blood Count 3.99 m/uL (4.30-5.90); White Blood Count* 10.19 K/uL (4.50-11.00)
[2022-06-09 15:52] LABS: Slide Review Reflex No
[2022-06-09 15:57] LABS: Chloride* 103 mmol/L (96-114); Potassium* 4.5 mmol/L (3.6-5.1); Sodium* 139 mmol/L (135-149)
[2022-06-09] MEDS: ETOMIDATE 2 MG/ML inj 20 MG IV (15:58)
[2022-06-09] MEDS: KETAMINE HCL 100 MG/ML inj 200 MG IV ×3 (15:59→16:24)
[2022-06-09 16:00] LABS: Blood Urea Nitrogen* 24 mg/dL (7-30); Carbon Dioxide* 24 mmol/L (20-32); Creatinine* 1.4 mg/dL (0.5-1.5); Est. Creatinine Clearance* 35.39; Estimated Glomerular Filt Rate 50 ml/min; INR 0.99 (0.91-1.10); Prothrombin Time 13.5 Seconds
[2022-06-09 16:01] LABS: SARS Antigen* negative (Negative)
[2022-06-09 16:01] LABS: Glucose* 167 mg/dL (60-115)
--- NOTE | 2022-06-09 16:09 | P.ANBPRC_ITS ---
[facility] Medical History Afib Basal cell carcinoma Coronary artery disease CVA (cerebral vascular accident) Diverticulitis History of cardiac arrest History of complete heart block Pacemaker Surgical History History of appendectomy History of colostomy Post-splenectomy Social History Highest level of school completed/degree received: high school graduate Smoking Status: Never smoker Do you use any of these nicotine containing products: None Second hand tobacco smoke exposure: No How often do you have a drink containing alcohol: 2-4 times a month How many standard drinks containing alcohol do you have on a typical day: 1 or 2 How often do you have six or more drinks on one occasion: Never AUDIT-C Alcohol total score: 2 Non-prescribed substance use: denies use Caffeine: No service: Yes ([employer]) Meds Home Medications and Allergies Home Medications Medication Instructions Recorded Confirmed Type amlodipine 10 mg tablet 5 mg PO DAILY 04/15/22 04/15/22 History apixaban 2.5 mg tablet (Eliquis) 2.5 mg PO BID 04/15/22 04/15/22 History aspirin 81 mg chewable tablet 1 tab PO DAILY 04/15/22 04/15/22 History atorvastatin 20 mg tablet 20 mg PO DAILY 04/15/22 04/15/22 History levetiracetam 500 mg tablet 500 mg PO BID 04/15/22 04/15/22 History lisinopril 5 mg tablet 5 mg PO DAILY 04/15/22 04/15/22 History metoprolol succinate 50 mg 50 mg PO DAILY 04/15/22 04/15/22 History tablet,extended release 24 hr Allergies Allergy/AdvReac Type Severity Reaction Status Date / Time No Known Drug Allergies Allergy Verified 04/15/22 06:17 Results Labs Labs: Laboratory Results - last 24 hr 06/09/22 06/09/22 06/09/22 15:20 15:20 15:20 WBC 10.19 RBC 3.99 L Hgb 12.5 L Hct 38.9 MCV 98 MCH 31 MCHC 32 RDW Coeff of Sera 13.6 Plt Count 190 Neut % (Auto) 50.9 Lymph % (Auto) 26.4 [place] % (Auto) 16.0 H Eos % (Auto) 5.7 Baso % (Auto) 0.6 Neut # (Auto) 5.19 Lymph # (Auto) 2.69 [place] # (Auto) 1.60 H Eos # (Auto) 0.58 H Baso # (Auto) 0.06 Abs Immat Gran (auto) 0.04 INR 0.99 Sodium 139 Potassium 4.5 Chloride 103 Carbon Dioxide 24 BUN 24 Creatinine 1.4 Estimated Creat Clear 35.39 Estimated GFR 50 Glucose 167 H Calcium 9.0 SARS-CoV-2 Ag (Rapid) POC Troponin I 06/09/22 06/09/22 15:25 15:40 WBC RBC Hgb Hct MCV MCH MCHC RDW Coeff of Sera Plt Count Neut % (Auto) Lymph % (Auto) [place] % (Auto) Eos % (Auto) Baso % (Auto) Neut # (Auto) Lymph # (Auto) [place] # (Auto) Eos # (Auto) Baso # (Auto) Abs Immat Gran (auto) INR Sodium Potassium Chloride Carbon Dioxide BUN Creatinine Estimated Creat Clear Estimated GFR Glucose Calcium SARS-CoV-2 Ag (Rapid) negative POC Troponin I 0.02 Vital Signs Vital Signs: Last Vital Signs Temp 98.8 F 06/09/22 15:04 Pulse 72 06/09/22 15:04 Resp 18 06/09/22 15:04 BP 126/89 06/09/22 15:04 Pulse Ox 96 06/09/22 15:04 O2 Del Method 06/09/22 15:04 Weight: 68.039 kg Height: 165.1 cm Anesthesia Procedures Airway Patient Location: ED Urgency: emergent Date: 06/09/22 Time: 15:45 Preferred by: MANAGER OF CORPORATE Difficult Airway: No Indications for Airway Management: airway protection, respiratory failure, [employer] depression and cardiovascular instability Spontaneous Ventilation: present Sedation Level: deep Preoxygenated: Yes MILS Maintained Throughout: Yes Mask Difficulty Assessment: 1 - vent by mask Final Airway Details: 8.0 ETT placed with Glidescope Final Airway Type: endotracheal airway Number of Attempts at Approach: 1 Dentition Unchanged: Yes
[2022-06-09 16:43] LABS: Appearance Urine Clear (Clear); Bilirubin Urine Negative (Negative); Blood Urine 2+ (Negative); Color Urine Yellow (Yellow); Glucose Urine Negative (Negative); Ketones Urine Negative (Negative); Leukocyte Esterase Urine Negative (Negative); Nitrite Urine Negative (Negative); Protein Urine Trace (Negative); Urobilinogen Urine 0.2 (0.2-1.0); pH Urine 6.5 (5.0-8.5)
--- NOTE | 2022-06-09 17:00 | ED.NURSE ---
1524 patient clenched teeth and was pulseless. CPR started 1526 1mg epinepherine administered and oral airway placed kelly device in place 1528 pulse noted, CPR stopped ROSC acheived, breathing on his own 1530 + pulse 1535 Diltiazem 10mg administered IVP for atrial fib at a rate in the [phone] oxymask at 10 liters with ETCO2 1544 18 solomon islander mohan placed with 150cc of clear urine output 1549 liter of normal saline infusing 1555 anesthesia arrived for intubation 1615 BP decreased to 72/42 1627 dobutamine starting at 5mcg/kg/min 1633 Ketamine 200mg IVP 1637 BP 124/59 1640 patient moved to EMS cot. He was started on Ketamine drip and transferred to [facility] ICU. Report was call and Given to Narda in ICU Patients belongings were accounted for with his daughters and [facility] security.
== END 2022-06-09 17:32 | disposition short-term general hospital (02) ==
PROVIDERS: Emergency Provider Emergency Medicine Emergency Medical Services; PCP Family Medicine
DX: I46.9 Cardiac arrest, cause unspecified (principal); D62 Acute posthemorrhagic anemia; K92.2 Gastrointestinal hemorrhage, unspecified; Z79.01 Long term (current) use of anticoagulants
CPT/HCPCS: 36415; 80048; 81001; 84484; 85025; 85610; 87426; 87635; 92950; 93005; 96365; 96366; 96375; 96376; 99285; 99291; 99292; A0425; A0434; J0171; J1250; J2060; J3490; J7050

== ENCOUNTER 2022-06-25 14:32 | Inpatient (IN) | payer MEDICARE, SELFPAY ==
[2022-06-25] VITALS (17 sets, daily range): BP systolic 111–133; BP diastolic 52–67; PULSE 60–79; RESP 18–22; TEMP 36.6–36.9; O2SAT 85–98; BMI 25.1; BMI 24.7
--- NOTE | 2022-06-25 14:56 | ED.GENADULT ---
HPI - General Adult General Time Seen by Provider: 14:56 Date Seen: 06/25/22 Chief complaint: GI Bleed Stated complaint: Rectal Bleed Time Seen by Provider: 06/25/22 14:41 Source: patient, family, RN notes reviewed and old records reviewed Mode of arrival: EMS Limitations: no limitations History of Present Illness HPI narrative: Patient is seen after being brought in by EMS for bloody stools. He states he has had 3 since midnight. He states it just stevie blood and some clots. He is not having any pain with defecation, no underlying abdominal pain. He has had no nausea vomiting, no fevers or chills. He is on Eliquis and aspirin. This patient has a recent history of being transferred out intubated on June 09 from our ED. He came in with some stroke-like symptoms but also abdominal pain and then became unresponsive, he had some cardiac activity on ultrasound but no peripheral pulse could be felt. CPR was initiated, he did respond 1 dose of 1 mg appy. He then went into atrial fibrillation which he has a known history of. He had AFib with RVR. He ended up on pressors. His daughter is with today and she states that they really do not know what happened. They supposedly are calling this a cardiac event. He was also hospitalized here in March of this summer for proximal small-bowel obstruction that was thought to be due to adhesions, was managed conservatively and went home the next day. In his records I see he does have a history of a seizure disorder, history of CVA, known history of atrial fibrillation. He is feeling a little dizzy lightheaded, no chest pain no shortness of breath. He thinks he may have had a colonoscopy years ago. Related Data Home Medications Medication Instructions Recorded Confirmed amlodipine 10 mg tablet 5 mg PO DAILY 04/15/22 04/15/22 apixaban 2.5 mg tablet (Eliquis) 2.5 mg PO BID 04/15/22 04/15/22 aspirin 81 mg chewable tablet 1 tab PO DAILY 04/15/22 04/15/22 atorvastatin 20 mg tablet 20 mg PO DAILY 04/15/22 04/15/22 levetiracetam 500 mg tablet 500 mg PO BID 04/15/22 04/15/22 lisinopril 5 mg tablet 5 mg PO DAILY 04/15/22 04/15/22 metoprolol succinate 50 mg 50 mg PO DAILY 04/15/22 04/15/22 tablet,extended release 24 hr Allergies Allergy/AdvReac Type Severity Reaction Status Date / Time No Known Drug Allergies Allergy Verified 04/15/22 06:17 Review of Systems Status of ROS: Reports: 10 or more systems reviewed and unremarkable except as noted in History and below PFSH PFS Medical History Afib Basal cell carcinoma Coronary artery disease CVA (cerebral vascular accident) Diverticulitis History of cardiac arrest History of complete heart block Pacemaker Surgical History History of appendectomy History of colostomy Post-splenectomy Social History Highest level of school completed/degree received: high school graduate Smoking Status: Never smoker Do you use any of these nicotine containing products: None Second hand tobacco smoke exposure: No How often do you have a drink containing alcohol: 2-4 times a month How many standard drinks containing alcohol do you have on a typical day: 1 or 2 How often do you have six or more drinks on one occasion: Never AUDIT-C Alcohol total score: 2 Non-prescribed substance use: denies use Caffeine: No service: Yes ([employer]) Exam Const: Vital Signs, click to edit/add: Vital Signs - 24 hr 06/25/22 14:40 Temperature 97.9 F Pulse Rate [Left P ulse Oximeter] 78 Respiratory Rate 20 Blood Pressure [Ri ght Upper Arm] 116/56 L Pulse Oximetry 96 Oxygen Delivery Me thod Room Air Documenting provider has reviewed patient's vital signs: yes Common normals: no apparent distress, average body habitus, oriented x3, no limitations, healthy appearing and alert General appearance: cooperative, comfortable and well kempt HENMT: Common normals: normocephalic, head/scalp atraumatic, hearing grossly normal bilaterally, external ears normal, external nose normal and moist oral mucous membranes Head and scalp: normocephalic and atraumatic Nose: external nose normal External ear: external ears normal Eye: Common normals: PERRL, EOMs intact bilaterally, conjunctivae normal and no scleral icterus Conjunctiva: conjunctiva(e) normal Pupil: PERRL Neck & C-Spine: Common normals: full ROM, no lymphadenopathy, supple, no meningeal signs, no JVD and thyroid normal Thyroid: thyroid normal Resp: Common normals: normal respiratory effort, no retractions, no use of accessory muscles and clear to auscultation bilaterally Auscultation: clear to auscultation bilaterally Cardio: Common normals: no JVD, regular rate, regular rhythm, S1 normal heart sound, S2 normal heart sound, no gallops, no clicks and no murmurs Rate: regular rate Rhythm: regular rhythm Heart sounds: S1 normal and S2 normal GI: Common normals: Normal to inspection, nondistended, normoactive bowel sounds present, soft to palpation, non-tender, no hepatosplenomegaly and no masses Palpation: soft and no hepatosplenomegaly : Other: Premier visibly normal, no external evidence of anything bleeding. Does have dried blood smeared in the buttocks and around the anus. No active bleeding at this time. Neuro: Common normals: oriented x3 Sensorium/orientation: alert Meningeal signs: no meningeal signs Psych: Appearance: well kempt Course Course Hospital Course: We will establish an IV, monitor on cardiac monitoring and pulse oximetry. I will initiate a L of fluids over 2 hours, type and screen him. This certainly sounds like a lower GI bleed and without abdominal pain or fever, doubt it is anything like diverticulitis. It certainly could be a diverticular bleed. I do not think abdominal imaging is going to benefit us here given that he does not have any abdominal pain or any fever. Reevaluation(s) Reevaluation #1: Reviewed with patient and his daughter that his hemoglobin is down to 9.4. In comparison to prior labs it is nearly a 3 g drop. I will be talking to our hospitalist. As of just a few hours ago, all local advanced care institutions in the [facility] and [place] were on divert and could not accept patients. Thus, it appears patient is going to have to stay here. I have reviewed with patient and his daughter that should he have life-threatening bleeding, it may mean end of life cares for him as we really do not have the capabilities as the higher level institutions. Unfortunately we can not transfer. I will have staff just check through with these institutions again at this time. We will hold his aspirin and Eliquis. Time: 16:17 Reevaluation #2: Patient's COVID PCR was positive. He states in his daughter confirms that he had a positive test here a couple weeks ago. He states he has no symptoms. We will do a COVID antigen. His COVID PCR was positive when he was here last time and is still positive but is antigen is negative, then he is not likely should in any virus. I reviewed with his daughter that there medically the COVID PCR can stay positive for 3 months. (Note, Dr. Alfredo said that PCR covid was positive at [facility] on 06/09, his antigen was negative here that day, will confirm negative antigen status here today again.) Time: 16:30 Consultations Consultation #1: Spoke with our hospitalist Dr. Alfredo and she is in agreement to admit here. She will be coming down shortly to see him. Time: 16:19 Vital Signs Vital signs: Initial Vital Signs Temperature 97.9 F 06/25/22 14:40 Temperature Source Temporal Artery Scan 06/25/22 14:40 Pulse Rate 78 06/25/22 14:40 Respiratory Rate 20 06/25/22 14:40 Blood Pressure 116/56 L 06/25/22 14:40 Blood Pressure Mean 76 06/25/22 14:40 Blood Pressure Position Supine 06/25/22 14:40 Pulse Oximetry 96 06/25/22 14:40 Oxygen Delivery Method 06/25/22 14:40 Vital Signs Temperature 97.9 F 06/25/22 14:40 Pulse Rate 78 06/25/22 14:40 Respiratory Rate 20 06/25/22 14:40 Blood Pressure 116/56 L 06/25/22 14:40 Pulse Oximetry 96 06/25/22 14:40 Oxygen Delivery Method 06/25/22 14:40 Temperature 97.9 F 06/25/22 14:40 Pulse Rate 78 06/25/22 14:40 Respiratory Rate 20 06/25/22 14:40 Blood Pressure 116/56 L 06/25/22 14:40 Pulse Oximetry 96 06/25/22 14:40 Oxygen Delivery Method 06/25/22 14:40 Medical Decision Making Lab Data Lab results reviewed: Yes I reviewed the patient's lab results Labs: Lab Results 06/25/22 06/25/22 06/25/22 Range/Units 15:30 15:30 15:30 WBC 16.16 H (4.50-11.00) K/uL RBC 2.97 L (4.30-5.90) m/uL Hgb 9.4 L (13.5-17.5) gm/dL Hct 29.5 L (37.0-53.0) % MCV 99 (80-100) fL MCH 32 (26-34) pg MCHC 32 (32-36) gm/dL RDW Coeff of Sera 13.2 (11.5-15.5) % Plt Count 334 (140-440) K/uL Neut % (Auto) 84.2 H (42.0-72.0) % Lymph % (Auto) 7.5 L (20-44) % [place] % (Auto) 7.4 (0.0-11.0) % Eos % (Auto) 0.2 (0.0-7.0) % Baso % (Auto) 0.4 (0.0-3.0) % Neut # (Auto) 13.60 H (1.7-7.0) K/uL Lymph # (Auto) 1.20 (0.90-2.90) K/uL [place] # (Auto) 1.20 H (0.00-0.90) K/UL Eos # (Auto) 0.00 (0.00-0.50) K/uL Baso # (Auto) 0.10 (0.00-0.30) K/uL Abs Immat Gran (auto) 0.05 (0.00-0.30) K/uL Sodium 140 (135-149) mmol/L Potassium 4.9 (3.6-5.1) mmol/L Chloride 109 (96-114) mmol/L Carbon Dioxide 23 (20-32) mmol/L BUN 45 H (7-30) mg/dL Creatinine 1.7 H (0.5-1.5) mg/dL Estimated Creat Clear 29.14 Estimated GFR 40 ml/min Glucose 112 (60-115) mg/dL Lactate 2.6 H (0.5-1.9) mmol/L Calcium 9.3 (8.4-10.6) mg/dL Total Bilirubin 0.5 (0.1-1.5) mg/dL AST 24 (12-35) U/L ALT 29 (4-50) U/L Alkaline Phosphatase 78 (40-150) U/L C-Reactive Protein < 0.5 L (0.5-1.0) mg/dL Total Protein 6.7 (6.0-8.3) g/dL Albumin 3.9 (3.3-5.0) g/dL SARS-CoV-2 (PCR) (Negative) Blood Type Antibody Screen 06/25/22 06/25/22 Range/Units 15:30 15:30 WBC (4.50-11.00) K/uL RBC (4.30-5.90) m/uL Hgb (13.5-17.5) gm/dL Hct (37.0-53.0) % MCV (80-100) fL MCH (26-34) pg MCHC (32-36) gm/dL RDW Coeff of Sera (11.5-15.5) % Plt Count (140-440) K/uL Neut % (Auto) (42.0-72.0) % Lymph % (Auto) (20-44) % [place] % (Auto) (0.0-11.0) % Eos % (Auto) (0.0-7.0) % Baso % (Auto) (0.0-3.0) % Neut # (Auto) (1.7-7.0) K/uL Lymph # (Auto) (0.90-2.90) K/uL [place] # (Auto) (0.00-0.90) K/UL Eos # (Auto) (0.00-0.50) K/uL Baso # (Auto) (0.00-0.30) K/uL Abs Immat Gran (auto) (0.00-0.30) K/uL Sodium (135-149) mmol/L Potassium (3.6-5.1) mmol/L Chloride (96-114) mmol/L Carbon Dioxide (20-32) mmol/L BUN (7-30) mg/dL Creatinine (0.5-1.5) mg/dL Estimated Creat Clear Estimated GFR ml/min Glucose (60-115) mg/dL Lactate (0.5-1.9) mmol/L Calcium (8.4-10.6) mg/dL Total Bilirubin (0.1-1.5) mg/dL AST (12-35) U/L ALT (4-50) U/L Alkaline Phosphatase (40-150) U/L C-Reactive Protein (0.5-1.0) mg/dL Total Protein (6.0-8.3) g/dL Albumin (3.3-5.0) g/dL SARS-CoV-2 (PCR) POSITIVE SARS-CoV-2 A (Negative) Blood Type O Negative Antibody Screen NEGATIVE ECG Data Attestation: I personally reviewed and interpreted this ECG as follows: (Sinus rhythm with sinus arrhythmia, 65 beats per minute. Q-waves lead 3 and AVF with flipped T-waves.) Critical Care Time Critical Care Time Critical Care Time: No Discharge Plan Discharge Clinical Impression: Acute blood loss anemia, Acute lower gastrointestinal bleeding Patient Disposition: Admitted As Inpatient Condition: Unchanged Prescriptions: No Action atorvastatin 20 mg tablet 20 mg PO DAILY metoprolol succinate 50 mg tablet extended release 24 hr 50 mg PO DAILY levetiracetam 500 mg tablet 500 mg PO BID amlodipine 10 mg tablet 5 mg PO DAILY aspirin 81 mg tablet,chewable 1 tab PO DAILY Eliquis 2.5 mg tablet 2.5 mg PO BID lisinopril 5 mg tablet 5 mg PO DAILY Follow Up/Referrals: Fabienne Gill DO [Primary Care Provider] -
[2022-06-25 15:37] LABS: Lactate* 2.6 mmol/L (0.5-1.9)
[2022-06-25 15:43] LABS: Basophils Percent Auto 0.4 % (0.0-3.0); Eosinophils Percent Auto 0.2 % (0.0-7.0); Hematocrit 29.5 % (37.0-53.0); Hemoglobin* 9.4 gm/dL (13.5-17.5); Immature Granulocytes Abs Auto 0.05 K/uL (0.00-0.30); Lymphocytes Percent Auto 7.5 % (20-44); Mean Corpuscular HGB Conc 32 gm/dL (32-36); Mean Corpuscular Hemoglobin 32 pg (26-34); Mean Corpuscular Volume 99 fL (80-100); Monocytes Percent Auto 7.4 % (0.0-11.0); Neutrophils Percent Auto 84.2 % (42.0-72.0); Platelet Count* 334 K/uL (140-440); RDW Coefficient of Variation % 13.2 % (11.5-15.5); Red Blood Count 2.97 m/uL (4.30-5.90); White Blood Count* 16.16 K/uL (4.50-11.00)
[2022-06-25] MEDS: 0.9 % SODIUM CHLORIDE 1000 ml 1,000 ML 500 ML IV ×2 (15:58→19:22)
[2022-06-25 15:59] LABS: Albumin* 3.9 g/dL (3.3-5.0); Chloride* 109 mmol/L (96-114); Slide Review Reflex No; Sodium* 140 mmol/L (135-149)
[2022-06-25 16:00] LABS: Potassium* 4.9 mmol/L (3.6-5.1)
[2022-06-25 16:02] LABS: Aspartate Amino Transferase* 24 U/L (12-35); Bilirubin Total* 0.5 mg/dL (0.1-1.5); Carbon Dioxide* 23 mmol/L (20-32); Creatinine* 1.7 mg/dL (0.5-1.5); Est. Creatinine Clearance* 29.14; Estimated Glomerular Filt Rate 40 ml/min
[2022-06-25 16:03] LABS: Alanine Aminotransferase* 29 U/L (4-50); Alkaline Phosphatase* 78 U/L (40-150); Blood Urea Nitrogen* 45 mg/dL (7-30); Calcium* 9.3 mg/dL (8.4-10.6); Glucose* 112 mg/dL (60-115); Total Protein* 6.7 g/dL (6.0-8.3)
[2022-06-25 16:06] LABS: C Reactive Protein* < 0.5 mg/dL (0.5-1.0)
[2022-06-25 16:20] LABS: SARS PCR* POSITIVE SARS-CoV-2 (Negative)
--- NOTE | 2022-06-25 17:37 | PM.IMHP1 ---
Hospitalist- H&P: HPI History of Present Illness Date Seen: 06/25/22 Chief complaint: Rectal Bleed Narrative: Favian Crooks is a 81 year old male who presented to the ED for concerns of bloody stools. He had a 3 bloody bowel movements overnight, not accompanied by pain or other symptoms. Today, he was running errands and getting gas in [place], and had a brief syncopal episode, preceded by lightheadedness. He drove home after the syncopal episode, then told family members about the syncopal episode and bloody stools, who called EMS. Patient notes intermittent lightheadedness since recent hospitalization (details below). He had dinner at a friend's house last night which included a soup that had broth and chicken bits that may have included some bone, no other recent new foods. He was on Augmentin 2 weeks ago. ER course and findings: - hemoglobin 9.4 (was 11.2 at [facility] on 06/12) - BP 110s/60s (typically runs 140-150 systolic, per chart review) - lactate 2.6, creatinine 1.7 (baseline 1.3) Favian was seen in our emergency department on June 09 for acute onset LUE paresthesia and found to be in AFib with RVR (known history of AFib); en route to the CT scanner, he became pulseless and CPR was started. Pulses returned, he was subsequently intubated and transferred to [facility]. Upon arrival to [facility], his EKG was consistent with an atrial paced rhythm. Findings during stay at [facility]: - troponin peaked at 0.336. TTE exhibited LVEF of 58%, mild AR, hypokinesis of inferior wall and basal posterior segment - found to have gram-negative bacilli on sputum culture and was positive for COVID-19. Extubated on hospital day 1. - pacemaker was interrogated during stay and exhibited 2 atrial events that were consistent with AFib/RVR, no ventricular abnormalities. - EEG performed and exhibited mild generalized slowing, no seizure activity noted. - PEA arrest was thought to be likely due to underlying CVA or neurologic event (MRI revealed encephalomalacia and right parietal lobe consistent with chronic infarct with additional possible punctate acute infarcts) Of note, patient had a similar episode and presentation in October of 2020 (concern for seizure activity with PEA arrest following, diagnosed with a right parietal lobe stroke at that time) In addition to above mentioned hospitalization, past medical history also includes: - cardiac disease: complete heart block s/p PPM, chronic AFib on apixaban, obstructive coronary artery disease noted on coronary angiogram, hyperlipidemia, TIA - diverticular disease (left hemicolectomy secondary to large bowel obstruction in 2009), small-bowel obstruction in March of 2022 - seizure disorder as noted above, chronically treated with Keppra Patient is , [place] with son close by. Never smoker, rare alcohol use. Daughter Yi ([phone]) is medical decision maker if needed. Requests full code status. Thrice COVID vaccinated, tested positive for COVID on 06/09/2022. ? Review of Systems Status of ROS: Reports: 10 or more systems reviewed and unremarkable except as noted in History and below Narrative: No urinary concerns. No GERD. Endorses having some lightheadedness over the past week or so, unsure if iatrogenic. [facility] Medical History (Updated 06/25/22 @ 18:55 by Inés Alfredo MD) Afib Basal cell carcinoma Coronary artery disease CVA (cerebral vascular accident) Diverticulitis History of cardiac arrest History of complete heart block Pacemaker SBO (small bowel obstruction) Surgical History (Updated 06/25/22 @ 18:55 by Inés Alfredo MD) History of appendectomy History of colostomy Post-splenectomy Social History Highest level of school completed/degree received: high school graduate Smoking Status: Never smoker Do you use any of these nicotine containing products: None Second hand tobacco smoke exposure: No How often do you have a drink containing alcohol: 2-4 times a month How many standard drinks containing alcohol do you have on a typical day: 1 or 2 How often do you have six or more drinks on one occasion: Never AUDIT-C Alcohol total score: 2 Non-prescribed substance use: denies use Caffeine: No service: Yes ([employer]) Meds Home Medications and Allergies Home Medications Medication Instructions Recorded Confirmed Type amlodipine 10 mg tablet 5 mg PO DAILY 04/15/22 06/25/22 History apixaban 2.5 mg tablet (Eliquis) 2.5 mg PO BID 04/15/22 06/25/22 History aspirin 81 mg chewable tablet 1 tab PO DAILY 04/15/22 06/25/22 History atorvastatin 20 mg tablet 20 mg PO DAILY 04/15/22 06/25/22 History levetiracetam 500 mg tablet 1,000 mg PO BID 04/15/22 06/25/22 History lisinopril 5 mg tablet 5 mg PO DAILY 04/15/22 06/25/22 History metoprolol succinate 50 mg 50 mg PO DAILY 04/15/22 06/25/22 History tablet,extended release 24 hr Allergies Allergy/AdvReac Type Severity Reaction Status Date / Time No Known Drug Allergies Allergy Verified 04/15/22 06:17 Exam Narrative: Exam Narrative: GEN: Alert HEENT: Normal external ears, EOMIs bilaterally, no scleral icterus, mild conjunctival pallor CV: RRR (not in AFib during my exam), No concerning murmurs, rubs, or gallops R: LCTA bilaterally without concerning wheezing, rales, or rhonchi Abdomen: Soft, nontender, no masses Ext: wwp, no concerning edema Skin: No concerning skin lesions or rashes on exposed skin Neuro: No focal weakness or concerning asymmetry Psych: Appropriate Const: Vital Signs, click to edit/add: Vital Signs - 24 hr 06/25/22 14:40 Temperature 97.9 F Pulse Rate [Left P ulse Oximeter] 78 Respiratory Rate 20 Blood Pressure [Ri ght Upper Arm] 116/56 L Pulse Oximetry 96 Oxygen Delivery Me thod Room Air Hospitalist - H&P: Result Labs Labs: Short CBC 06/25/22 Range/Units 15:30 WBC 16.16 H (4.50-11.00) K/uL Hgb 9.4 L (13.5-17.5) gm/dL Hct 29.5 L (37.0-53.0) % Plt Count 334 (140-440) K/uL BMP 06/25/22 15:30 Sodium 140 Potassium 4.9 Chloride 109 Carbon Dioxide 23 BUN 45 H Creatinine 1.7 H Glucose 112 Calcium 9.3 Liver Function 06/25/22 Range/Units 15:30 Total Bilirubin 0.5 (0.1-1.5) mg/dL AST 24 (12-35) U/L ALT 29 (4-50) U/L Alkaline Phosphatase 78 (40-150) U/L Albumin 3.9 (3.3-5.0) g/dL Assessment and Plan Assessment and plan (1) Acute lower gastrointestinal bleeding: Status: Acute Assessment and Plan: Presumably diverticular bleed given history and presentation. Treat with IV PPI to cover an atypical presentation of UGIB. Will follow serial hemoglobins, transfuse if appropriate. Consider CT angiography in the morning if bleeding persists. (2) Acute blood loss anemia: Status: Acute Assessment and Plan: Per above. (3) Acute kidney injury: Status: Acute Assessment and Plan: Likely pre renal from hypotension and blood loss. Continue fluid resuscitation and close monitoring of renal function. (4) Afib: Status: Acute Assessment and Plan: Currently in sinus rhythm, will monitor with telemetry given cardiac history. (5) Diverticulosis: Status: Acute Plan Per above. SCDs for prophylaxis, hold ASA and Eliquis.
[2022-06-25 17:59] LABS: Troponin I* < 0.01 ng/mL (0.01-0.04)
[2022-06-25 18:04] LABS: SARS Antigen* Negative (Negative)
[2022-06-25] MEDS: PANTOPRAZOLE SODIUM 40 MG INJ IVP (19:22)
[2022-06-25 20:47] LABS: Lactate* 0.9 mmol/L (0.5-1.9)
--- NOTE | 2022-06-25 20:58 | PC.NURSE ---
shift [id number] Pt this shift arrived to floor around 1730, ambulating independently in room. Pt states that they feel off and dizzy. Gait belt in place and fall precautions taken. Void upon arrival in toilet. Loose dark red bloody BM shortly after. Per pt, fell at the gas station before arriving to ED. Small abrasion to R knee. No bruises or abrasions noted on hands. Ordered dinner and then per MD start clear liquids. IV boluses given. Pt resting comfortably in bed.
[2022-06-25 21:02] LABS: Hemoglobin* 7.4 gm/dL (13.5-17.5)
[2022-06-25] MEDS: levETIRAcetam 500 MG TABLET 1000 MG PO (21:29)
[2022-06-25] MEDS: 0.9 % SODIUM CHLORIDE 1000 ml 1,000 ML 150 ML IV (21:30)
--- NOTE | 2022-06-25 22:00 | PC.NURSE ---
Patient Hgb 7.4, updated MD
[2022-06-26] VITALS (9 sets, daily range): BP systolic 117–181; BP diastolic 59–74; PULSE 59–76; RESP 16–20; TEMP 36.6–36.9; O2SAT 95–99
[2022-06-26] MEDS: 0.9 % SODIUM CHLORIDE 1000 ml 1,000 ML 150 ML IV ×3 (06:00→21:12)
--- NOTE | 2022-06-26 06:37 | PC.NURSE ---
[id number]: Patient pleasant and cooperative. SBA. Denies pain. Denies N/V. No bloody stools this shift. Infused 1 unit PRBC. Tele reads A-paced. Patient reports feeling less dizzy/lightheaded. Appeared to rest well during noc.
[2022-06-26 06:40] LABS: Basophils Percent Auto 0.4 % (0.0-3.0); Eosinophils Percent Auto 3.1 % (0.0-7.0); Hematocrit 27.7 % (37.0-53.0); Immature Granulocytes Abs Auto 0.03 K/uL (0.00-0.30); Lymphocytes Percent Auto 16.6 % (20-44); Mean Corpuscular HGB Conc 33 gm/dL (32-36); Mean Corpuscular Hemoglobin 32 pg (26-34); Mean Corpuscular Volume 98 fL (80-100); Monocytes Percent Auto 11.8 % (0.0-11.0); Neutrophils Percent Auto 67.8 % (42.0-72.0); Platelet Count* 288 K/uL (140-440); RDW Coefficient of Variation % 13.4 % (11.5-15.5); Red Blood Count 2.82 m/uL (4.30-5.90); White Blood Count* 11.38 K/uL (4.50-11.00)
[2022-06-26 06:44] LABS: Slide Review Reflex No
[2022-06-26 06:57] LABS: Albumin* 3.1 g/dL (3.3-5.0); Chloride* 113 mmol/L (96-114); Potassium* 4.7 mmol/L (3.6-5.1); Sodium* 140 mmol/L (135-149)
[2022-06-26 06:59] LABS: Bilirubin Total* 0.6 mg/dL (0.1-1.5); Creatinine* 1.4 mg/dL (0.5-1.5); Est. Creatinine Clearance* 35.39; Estimated Glomerular Filt Rate 50 ml/min
[2022-06-26 07:00] LABS: Alanine Aminotransferase* 24 U/L (4-50); Alkaline Phosphatase* 68 U/L (40-150); Aspartate Amino Transferase* 21 U/L (12-35); Blood Urea Nitrogen* 32 mg/dL (7-30); Calcium* 8.4 mg/dL (8.4-10.6); Carbon Dioxide* 23 mmol/L (20-32); Glucose* 103 mg/dL (60-115); Total Protein* 5.6 g/dL (6.0-8.3)
[2022-06-26] MEDS: PANTOPRAZOLE SODIUM 40 MG INJ IVP (09:20)
[2022-06-26] MEDS: levETIRAcetam 500 MG TABLET 1000 MG PO ×2 (09:20→21:12)
--- NOTE | 2022-06-26 09:33 | CRLHL7_ITS ---
For Patients: As a result of the Century Cures Act, medical imaging exams and procedure reports are released immediately into your electronic medical record. You may view this report before your referring provider. If you have questions, please contact your health care provider. INDICATION: GI bleed. COMPARISON: Portions of a April 13, 2022 examination TECHNIQUE: CT examination of the abdomen and pelvis was performed following the uneventful intravenous administration of 72 cc of Isovue 370. Thin section axial images were obtained from the lung bases through the pubic symphysis. Oral contrast was not administered. Please note that all CT scans at this facility use dose modulation, iterative reconstruction, and/or weight-based dosing when appropriate to reduce radiation dose to as low as reasonably achievable. FINDINGS: LUNG BASES: No significant lung base abnormalities focal pleural-based incidentally noted adjacent to the right middle lobe.The heart size is normal at the lung bases. Pacer/ICD noted LIVER/BILIARY SYSTEM:The liver is normal in size and configuration. There is no focal mass and there is no intra- or extra hepatic biliary ductal dilatation.The gallbladder is distended but otherwise unremarkable appearance ADRENALS: Normal KIDNEYS, URETERS and BLADDER:The kidneys are normal in size. Left renal cyst. Scattered tiny lesions bilaterally too small to characterize but likely cysts. The bladder appears normal. The prostate is moderately enlarged SPLEEN:Surgically absent PANCREAS: Appears normal. RETROPERITONEUM and MESENTERY: There is no mass, adenopathy or aortic aneurysm. Atherosclerotic vascular calcifications GASTROINTESTINAL SYSTEM: Postoperative changes. No evidence of bowel obstruction. Diverticulosis. There is no specific visible site or cause of GI bleeding on this study. This is not a triple phase CT angiogram which is sometimes used to discover brisk arterial bleeding by imaging. PELVIS: No mass, adenopathy or free fluid. OSSEOUS STRUCTURES and ABDOMINAL WALL: There is an age-appropriate appearance of the osseous structures.No significant abdominal wall defect. OTHER: No free fluid or free air. IMPRESSION: 1. No specific visible cause or site of GI bleeding. Please review the comment regarding the gastrointestinal system. 2. Other incidental nonacute appearing findings as above. Please note that all CT scans at this facility use dose modulation, iterative reconstruction, and/or weight-based dosing when appropriate to reduce radiation dose to as low as reasonably achievable. Dictated by Demetrius Moses MD @ 06/26/2022 10:49:00 AM (Electronically Signed)
--- NOTE | 2022-06-26 09:35 | PM.IMPN1 ---
Progress Note: A&P Assessment and plan (1) Acute lower gastrointestinal bleeding: Status: Acute Assessment and Plan: Overall improving. CT this morning to assess for source of bleeding. (2) Acute blood loss anemia: Problem details: Transfused 1U PRBCs on 06/25 Status: Acute (3) Diverticulosis: Status: Acute (4) Afib: Status: Acute Assessment and Plan: Rate controlled, restart Metoprolol today (held overnight 2/2 hypotension on admission). Holding Eliquis 2/2 acute GI Bleed. (5) CVA (cerebral vascular accident): Status: Acute (6) Seizure disorder: Status: Acute Assessment and Plan: Quiescent, continue Levetiracetam. (7) Acute kidney injury: Status: Acute Assessment and Plan: BUN and Cr improving after IVF resuscitation and blood transfusion. Time Spent With Patient Total time spent: - per above - SCDs for ppx. Holding pharmacological anticoagulation given acute GI bleed - patient lives independently with family close, plans to go home when clinically and hemodynamically stable, possibly as early as tomorrow. Consider decrease in antihypertensives on d/c given chronic lightheadedness - daughter Sharyn updated by phone, questions answered Subjective Date Seen: 06/26/22 Interval history: Overnight, hemoglobin dropped to 7.4, received 1U of PRBCs and tolerated well. Hgb this morning 9.0. BUN and Creatinine improving. Patient has had 2 bloody BMs since admission (with less volume and blood noted in stool). Favian is feeling good this morning, has no complaints for hospitalist staff. Continues to have no abdominal pain or nausea. Exam Narrative: Exam Narrative: GEN: Alert and oriented, sitting comfortably in bed HEENT: Normal external ears, EOMIs bilaterally, no scleral icterus CV: RRR (not in a fib during my exam), no concerning murmurs, rubs, or gallops R: LCTA bilaterally without concerning wheezing, rales, or rhonchi Ab: soft, no ttp, no masses, hyperactive bowel sounds throughout Ext: wwp, no concerning edema Skin: No concerning skin lesions or rashes on exposed skin Neuro: Nonfocal Psych: Appropriate Const: Vital Signs, click to edit/add: Vital Signs - 24 hr 06/25/22 14:40 06/25/22 17:57 06/25/22 14:39 Temperature 97.9 F 98.4 F Pulse Rate 66 Pulse Rate [Left P ulse Oximeter] 78 67 Respiratory Rate 20 22 Blood Pressure Blood Pressure [Le ft Arm] 113/55 L Blood Pressure [Ri ght Upper Arm] 116/56 L Pulse Oximetry 96 98 98 Oxygen Delivery Me thod Room Air Room Air 06/25/22 14:45 06/25/22 15:00 06/25/22 15:03 Temperature Pulse Rate 63 79 72 Pulse Rate [Left P ulse Oximeter] Respiratory Rate Blood Pressure 115/60 Blood Pressure [Le ft Arm] Blood Pressure [Ri ght Upper Arm] Pulse Oximetry 98 97 98 Oxygen Delivery Me thod 06/25/22 15:15 06/25/22 15:33 06/25/22 15:35 Temperature Pulse Rate 66 68 Pulse Rate [Left P ulse Oximeter] Respiratory Rate Blood Pressure 114/60 Blood Pressure [Le ft Arm] Blood Pressure [Ri ght Upper Arm] Pulse Oximetry 85 L 98 Oxygen Delivery Me thod 06/25/22 16:03 06/25/22 16:32 06/25/22 17:02 Temperature Pulse Rate Pulse Rate [Left P ulse Oximeter] Respiratory Rate Blood Pressure 111/54 L 125/59 L 124/67 Blood Pressure [Le ft Arm] Blood Pressure [Ri ght Upper Arm] Pulse Oximetry Oxygen Delivery Me thod 06/25/22 17:30 06/25/22 17:30 06/25/22 19:00 Temperature 98.4 F 98.5 F Pulse Rate Pulse Rate [Left P ulse Oximeter] 67 66 Respiratory Rate 22 22 20 Blood Pressure Blood Pressure [Le ft Arm] 113/55 L 113/52 L Blood Pressure [Ri ght Upper Arm] Pulse Oximetry 98 98 95 Oxygen Delivery Me thod Room Air Room Air Room Air 06/25/22 23:00 06/25/22 23:00 06/25/22 23:15 Temperature 98.5 F 98.5 F 98.1 F Pulse Rate 61 60 Pulse Rate [Left P ulse Oximeter] 61 Respiratory Rate 20 20 18 Blood Pressure 133/59 L 125/60 Blood Pressure [Le ft Arm] 133/59 L Blood Pressure [Ri ght Upper Arm] Pulse Oximetry 97 97 97 Oxygen Delivery Me thod Room Air 06/25/22 23:00 06/25/22 23:17 06/26/22 00:02 Temperature 97.8 F 98.0 F Pulse Rate 60 60 63 Pulse Rate [Left P ulse Oximeter] Respiratory Rate 20 20 Blood Pressure 130/64 117/59 L Blood Pressure [Le ft Arm] Blood Pressure [Ri ght Upper Arm] Pulse Oximetry 97 96 Oxygen Delivery Me thod 06/26/22 01:45 06/26/22 03:00 Temperature 98.5 F 98.5 F Pulse Rate 60 Pulse Rate [Left P ulse Oximeter] 61 Respiratory Rate 18 18 Blood Pressure 146/63 H Blood Pressure [Le ft Arm] 145/68 H Blood Pressure [Ri ght Upper Arm] Pulse Oximetry 95 96 Oxygen Delivery Me thod Room Air Labs Labs: Laboratory Results - last 24 hr 06/25/22 06/25/22 06/25/22 15:30 15:30 15:30 WBC 16.16 H RBC 2.97 L Hgb 9.4 L Hct 29.5 L MCV 99 MCH 32 MCHC 32 RDW Coeff of Sera 13.2 Plt Count 334 Neut % (Auto) 84.2 H Lymph % (Auto) 7.5 L [place] % (Auto) 7.4 Eos % (Auto) 0.2 Baso % (Auto) 0.4 Neut # (Auto) 13.60 H Lymph # (Auto) 1.20 [place] # (Auto) 1.20 H Eos # (Auto) 0.00 Baso # (Auto) 0.10 Abs Immat Gran (auto) 0.05 Sodium 140 Potassium 4.9 Chloride 109 Carbon Dioxide 23 BUN 45 H Creatinine 1.7 H Estimated Creat Clear 29.14 Estimated GFR 40 Glucose 112 Lactate 2.6 H Calcium 9.3 Total Bilirubin 0.5 AST 24 ALT 29 Alkaline Phosphatase 78 Troponin I < 0.01 L C-Reactive Protein < 0.5 L Total Protein 6.7 Albumin 3.9 SARS-CoV-2 (PCR) SARS-CoV-2 Ag (Rapid) Blood Type Antibody Screen Crossmatch ([facility]) 06/25/22 06/25/22 06/25/22 15:30 15:30 16:28 WBC RBC Hgb Hct MCV MCH MCHC RDW Coeff of Sera Plt Count Neut % (Auto) Lymph % (Auto) [place] % (Auto) Eos % (Auto) Baso % (Auto) Neut # (Auto) Lymph # (Auto) [place] # (Auto) Eos # (Auto) Baso # (Auto) Abs Immat Gran (auto) Sodium Potassium Chloride Carbon Dioxide BUN Creatinine Estimated Creat Clear Estimated GFR Glucose Lactate Calcium Total Bilirubin AST ALT Alkaline Phosphatase Troponin I C-Reactive Protein Total Protein Albumin SARS-CoV-2 (PCR) POSITIVE SARS-CoV-2 A SARS-CoV-2 Ag (Rapid) Negative Blood Type O Negative Antibody Screen NEGATIVE Crossmatch ([facility]) See Detail 06/25/22 06/25/22 06/26/22 20:43 20:43 05:53 WBC 11.38 H RBC 2.82 L Hgb 7.4 L* 9.0 L Hct 27.7 L MCV 98 MCH 32 MCHC 33 RDW Coeff of Sera 13.4 Plt Count 288 Neut % (Auto) 67.8 Lymph % (Auto) 16.6 L [place] % (Auto) 11.8 H Eos % (Auto) 3.1 Baso % (Auto) 0.4 Neut # (Auto) 7.70 H Lymph # (Auto) 1.90 [place] # (Auto) 1.30 H Eos # (Auto) 0.40 Baso # (Auto) 0.00 Abs Immat Gran (auto) 0.03 Sodium Potassium Chloride Carbon Dioxide BUN Creatinine Estimated Creat Clear Estimated GFR Glucose Lactate 0.9 Calcium Total Bilirubin AST ALT Alkaline Phosphatase Troponin I C-Reactive Protein Total Protein Albumin SARS-CoV-2 (PCR) SARS-CoV-2 Ag (Rapid) Blood Type Antibody Screen Crossmatch ([facility]) 06/26/22 06/26/22 05:53 05:53 WBC RBC Hgb Hct MCV MCH MCHC RDW Coeff of Sera Plt Count Neut % (Auto) Lymph % (Auto) [place] % (Auto) Eos % (Auto) Baso % (Auto) Neut # (Auto) Lymph # (Auto) [place] # (Auto) Eos # (Auto) Baso # (Auto) Abs Immat Gran (auto) Sodium 140 Potassium 4.7 Chloride 113 Carbon Dioxide 23 BUN 32 H Creatinine 1.4 Estimated Creat Clear 35.39 Estimated GFR 50 Glucose 103 Lactate 1.0 Calcium 8.4 Total Bilirubin 0.6 AST 21 ALT 24 Alkaline Phosphatase 68 Troponin I C-Reactive Protein Total Protein 5.6 L Albumin 3.1 L SARS-CoV-2 (PCR) SARS-CoV-2 Ag (Rapid) Blood Type Antibody Screen Crossmatch ([facility])
[2022-06-26] MEDS: METOPROLOL SUCCINATE (XL) 50 MG TAB PO (11:18)
[2022-06-26 15:05] LABS: Hemoglobin* 9.1 gm/dL (13.5-17.5)
--- NOTE | 2022-06-26 18:42 | PC.NURSE ---
End of Shift: Patient pleasant and cooperative. Patient hypertensive but vitally stable, lungs clear, BS WNL, IV running NS at 150. Patient is SBA/independent to toilet. Patient has had x5 small to moderate loose black/brown stools. Patient has been drinking water and had 2 cups of broth today, tolerating clear liquids and urinating very well. Patient denies any pain.
--- NOTE | 2022-06-26 18:45 | PC.NURSE ---
End of Shift: Patient pleasant and cooperative. Patient vitally stable, lungs clear, BS WNL, IV's SL and intact. Patient first vitals of the day entailed temperature of 100.1, otherwise patient has been afebrile. Patient SBA with ambulation to chair/commode. Left lower extremity warm to touch and reddened, wounds open to air with no drainage. No pitting edema. Patient rates pain 7-8/10, norco given x2. Tele=NSR. Patient has sob with activity. Patient tolerating regular diet and urinating. Patient's blood sugars are 280, 282, 324.
[2022-06-27 03:17] VITALS: BP 133/66; PULSE 58; RESP 16; TEMP 36.8; O2SAT 97
[2022-06-27] MEDS: 0.9 % SODIUM CHLORIDE 1000 ml 1,000 ML 150 ML IV (04:00)
[2022-06-27 06:48] LABS: Basophils Percent Auto 1.2 % (0.0-3.0); Eosinophils Percent Auto 7.7 % (0.0-7.0); Hematocrit 27.5 % (37.0-53.0); Immature Granulocytes Abs Auto 0.01 K/uL (0.00-0.30); Lymphocytes Absolute Auto 1.82 K/uL (0.90-2.90); Lymphocytes Percent Auto 21.2 % (20-44); Mean Corpuscular HGB Conc 33 gm/dL (32-36); Mean Corpuscular Hemoglobin 33 pg (26-34); Mean Corpuscular Volume 99 fL (80-100); Monocytes Percent Auto 12.9 % (0.0-11.0); Neutrophils Absolute Auto 4.88 K/uL (1.7-7.0); Neutrophils Percent Auto 56.9 % (42.0-72.0); Platelet Count* 277 K/uL (140-440); RDW Coefficient of Variation % 13.2 % (11.5-15.5); Red Blood Count 2.77 m/uL (4.30-5.90); White Blood Count* 8.58 K/uL (4.50-11.00)
[2022-06-27 06:50] LABS: Slide Review Reflex No
[2022-06-27 07:00] VITALS: BP 149/66; PULSE 60; RESP 16; RESP 18; TEMP 36.5; O2SAT 96
[2022-06-27 07:06] LABS: Chloride* 110 mmol/L (96-114)
[2022-06-27 07:07] LABS: Sodium* 139 mmol/L (135-149)
--- NOTE | 2022-06-27 07:07 | PC.NURSE ---
Shift Note : Pt pleasant and cooperative, VSS, afebrile, LS clear, BS active. No stools noted this shift. PIV is asymptomatic and patent with maintenance fluids running. Tele is paced at 60. See eMAR for medication administration administration.
[2022-06-27 07:09] LABS: Creatinine* 1.3 mg/dL (0.5-1.5); Est. Creatinine Clearance* 38.11; Estimated Glomerular Filt Rate 55 ml/min
[2022-06-27 07:10] LABS: Blood Urea Nitrogen* 19 mg/dL (7-30); Calcium* 8.7 mg/dL (8.4-10.6); Carbon Dioxide* 23 mmol/L (20-32); Glucose* 96 mg/dL (60-115)
[2022-06-27] MEDS: levETIRAcetam 500 MG TABLET 1000 MG PO (09:01)
[2022-06-27] MEDS: PANTOPRAZOLE SODIUM 40 MG INJ IVP (09:02)
[2022-06-27] MEDS: METOPROLOL SUCCINATE (XL) 50 MG TAB PO (09:02)
[2022-06-27 11:00] VITALS: BP 169/76; PULSE 60; RESP 14; TEMP 36.6; O2SAT 99
[2022-06-27 14:29] VITALS: BP 146/63; PULSE 60; RESP 14; TEMP 36.6
--- NOTE | 2022-06-27 15:11 | PM.DS1 ---
DS: Providers Provider Date Seen: 06/27/22 Date of admission: 06/25/22 19:31 Primary care physician: Fabienne Gill DO Admitting Clinician: Inés Alfredo MD Attending Physician on discharge: Concha Wagner MD [place] Hospitalist Date of Discharge: 06/27/22 DS: Diagnosis Discharge Diagnosis (1) Acute blood loss anemia: Status: Acute Problem details: Transfused 1U PRBCs on 06/25 (2) Seizure disorder: Status: Acute (3) Acute lower gastrointestinal bleeding: Status: Acute (4) Afib: Status: Acute (5) Chronic anticoagulation: Status: Acute DS: Summary Hospital Course Hospital Course: HOSPITALIST DISCHARGE SUMMARY ATTENDING PHYSICIAN: Concha Wagner MD FINAL DIAGNOSIS: Acute blood loss anemia secondary to anticoagulant HOSPITAL FOLLOWUP ISSUES: PCP to counselor aide risk and benefit of chronic anticoagulation in the setting of a significant GI bleed REFERRALS WHILE ADMITTED: PT and OT REFERRALS AFTER DISCHARGE: Return to PCP BRIEF HOSPITAL COURSE: Patient was admitted on 06/25 and transfused 1 unit of packed red blood cells secondary to an acute blood loss anemia. He had obvious hematochezia and was stabilized with IV fluids and blood products. Patient had been on Eliquis secondary to chronic AFib. We clearly held this anticoagulant in the setting of severe GI bleed. His lenka hemoglobin was 7.4. His baseline hemoglobin is 12.5. He dropped to 9.4 with the onset of his bleeding and as stated his lenka was 7.4. After his transfusion and observation over the last 2 days his hemoglobin has stabilized at 9.0. Abdomen pelvis CT did not elicit is source of the GI bleed. He did not have endoscopy while admitted. On the day of discharge patient was anxious to discharge. He had advanced his diet, he was off IV fluids and needed no parental medications. His hemoglobin was stable. VITAL SIGN, MEDICATION, LAB/MICRO, IMAGING SUMMARY (full details available in account tabs or by records request) DISCHARGE MEDICATIONS: See Reconciled list REVIEW OF SYSTEMS No new chest pain or dyspnea Pain controlled No voiding difficulties Tolerating diet challenge PHYSICAL EXAM: CONSTITUTIONAL: VITAL SIGNS: see record. HEENT: Normocephalic, atraumatic. PERRL, EOMI, conjunctivae pink, no scleral icterus. Ears and nose externally normal. Pharynx normal. NECK: No JVD. No carotid bruit, no thyromegaly, no adenopathy. CHEST: Clear to auscultation bilaterally. HEART: S1 and S2 normal. Edema ABDOMEN: Soft, nontender. Normal bowel sounds. MUSCULOSKELETAL: No gross joint deformity or swelling. NEURO: Cranial nerves intact. Grossly intact. No asymmetric findings. SKIN: No rashes, petechiae, concerning changes PSYCHIATRIC: Mood euthymic. DISPOSITION: Home. Hold Eliquis and aspirin. Time spent on discharge 37 minutes. Status at Discharge Functional status at discharge: uses cane/walker Overall status at discharge: patient is progressing back to baseline Time Spent with Patient Time attestation: Total time spent providing and/or coordinating discharge services: Time spent: Greater than 30 minutes Exam Const: Vital Signs, click to edit/add: Vital Signs - 24 hr 06/26/22 19:00 06/26/22 23:05 06/26/22 23:00 Temperature 98.0 F 98.1 F Pulse Rate 60 Pulse Rate [Left P ulse Oximeter] 60 76 Respiratory Rate 16 16 Blood Pressure Blood Pressure [Le ft Arm] 135/66 142/72 H Blood Pressure [Ri ght Arm] Pulse Oximetry 96 97 Oxygen Delivery Me thod Room Air Room Air 06/26/22 23:00 06/27/22 03:17 06/27/22 07:00 Temperature 98.3 F Pulse Rate Pulse Rate [Left P ulse Oximeter] 76 58 L 60 Respiratory Rate 16 16 16 Blood Pressure Blood Pressure [Le ft Arm] 133/66 Blood Pressure [Ri ght Arm] Pulse Oximetry 97 Oxygen Delivery Me thod Room Air 06/27/22 07:00 06/27/22 07:00 06/27/22 11:00 Temperature 97.7 F 98 F Pulse Rate 60 Pulse Rate [Left P ulse Oximeter] 60 60 Respiratory Rate 18 14 Blood Pressure Blood Pressure [Le ft Arm] 149/66 H Blood Pressure [Ri ght Arm] 169/76 H Pulse Oximetry 96 99 Oxygen Delivery Me thod Room Air Room Air 06/27/22 14:29 Temperature 98 F Pulse Rate 60 Pulse Rate [Left P ulse Oximeter] Respiratory Rate 14 Blood Pressure 146/63 H Blood Pressure [Le ft Arm] Blood Pressure [Ri ght Arm] Pulse Oximetry Oxygen Delivery Me thod DS: Data Data Completed and Pending Labs on day of discharge: Labs from last 24 hours 06/27/22 06/27/22 05:59 05:59 WBC 8.58 RBC 2.77 L Hgb 9.0 L Hct 27.5 L MCV 99 MCH 33 MCHC 33 RDW Coeff of Sera 13.2 Plt Count 277 Neut % (Auto) 56.9 Lymph % (Auto) 21.2 [place] % (Auto) 12.9 H Eos % (Auto) 7.7 H Baso % (Auto) 1.2 Neut # (Auto) 4.88 Lymph # (Auto) 1.82 [place] # (Auto) 1.10 H Eos # (Auto) 0.70 H Baso # (Auto) 0.10 Abs Immat Gran (auto) 0.01 Sodium 139 Potassium 4.0 Chloride 110 Carbon Dioxide 23 BUN 19 Creatinine 1.3 Estimated Creat Clear 38.11 Estimated GFR 55 Glucose 96 Calcium 8.7 Discharge Plan Discharge Disposition: Home, Self-Care Date of Admission: 06/25/22 19:31 Attending Provider on Discharge: Concha Wagner Primary Care Provider: Fabienne Gill Condition: Unchanged Anticipated Discharge Date/Time: 06/27/22 13:25 Discharge Medications: New omeprazole magnesium [Acid Administrative Assistant Data Entry (omeprazole)] 20 mg capsule,delayed release(DR/EC) 20 mg PO BID Qty: 60 2RF Continued atorvastatin 20 mg tablet 20 mg PO DAILY metoprolol succinate 50 mg tablet extended release 24 hr 50 mg PO DAILY levetiracetam 500 mg tablet 1,000 mg PO BID amlodipine 10 mg tablet 5 mg PO DAILY lisinopril 5 mg tablet 5 mg PO DAILY Held aspirin 81 mg tablet,chewable 1 tab PO DAILY Hold Instructions: Resume on 07/11/22. Discuss need for this medication PCP: harm of aspirin may outweigh need for it Eliquis 2.5 mg tablet 2.5 mg PO BID Hold Instructions: Resume on 07/11/22. At least two weeks; discuss with PCP before restarting Discharge Orders: Discharge Order (Routine); Ordered 06/27/22 Ordered By: Concha Wagner Patient Education: Omeprazole (By mouth), Gastrointestinal Bleeding (DC) Activity Level: Activity as Tolerated Discharge Diet: Regular Follow Up Appointments: Fabienne Gill DO [Primary Care Provider] - 10/11/22 11:15 am (Post Hospital visit with ) Forms: [employer] Info Instructions Discharge Comments: NO ELIQUIS OR ASPIRIN UNTIL YOU ARE SEEN BY YOUR PCP.
--- NOTE | 2022-06-27 15:29 | PC.NURSE ---
Discharge: Patient pleasant, cooperative, and eager to go home. Patient vitally stable, lungs clear, BS WNL, IV removed catheter intact. Patient tolerating regular diet, had small BM more brown than black, and urinating well. Patient denies chest pain and lightheadedness. Patient denies any pain. Patient signed discharge form and belongings sheet. Patient had no further questions regarding discharge information, patient was told new med is at [facility]. Patient left the floor by foot with parts data writer and belongings at 1521.
== END 2022-06-27 15:21 | disposition home or self-care (01) | DRG 813 ==
LOC: ED 17:01 → MEDSURG 17:08
PROVIDERS: Family Medicine; Admitting Provider Family Medicine; Emergency Provider Family Medicine; PCP Family Medicine; Visit Provider Family Medicine
DX: D68.32 Hemorrhagic disorder due to extrinsic circulating anticoagulants (principal); D62 Acute posthemorrhagic anemia; K92.1 Melena; N17.9 Acute kidney failure, unspecified; I48.20 Chronic atrial fibrillation, unspecified; T45.515A Adverse effect of anticoagulants, initial encounter; I25.10 Atherosclerotic heart disease of native coronary artery without angina pectoris; G40.909 Epilepsy, unspecified, not intractable, without status epilepticus; Z79.01 Long term (current) use of anticoagulants; E78.5 Hyperlipidemia, unspecified; Z95.0 Presence of cardiac pacemaker; Z86.73 Personal history of transient ischemic attack (TIA), and cerebral infarction without residual deficits; Z85.828 Personal history of other malignant neoplasm of skin
CPT/HCPCS: 36415; 36430; 74177; 80048; 80053; 83605; 84484; 85018; 85025; 86140; 86850; 86900; 86901; 86922; 87426; 87635; 93005; 94761; 99284; 99285; A0425; A0427; A9270; C9113; J7030; P9016; Q9967

== ENCOUNTER 2023-07-05 09:32 | Outpatient (CLI) | payer MEDICARE, SELFPAY ==
--- NOTE | 2023-07-05 10:23 | W.ANESCHARGE ---
Anesthesia Charges Start Date/Time Anesthesia Start Date: 07/05/23 Anesthesia Start Time: 10:07 Stop Date/Time Anesthesia Stop Date: 07/05/23 Anesthesia Stop Time: 10:44 Summary Extremes of Age - Over 70 or under 1: MDA
--- NOTE | 2023-07-05 10:48 | P.ANES_ITS ---
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
== END 2023-07-05 09:33 | disposition home or self-care (01) ==
PROVIDERS: PCP Family Medicine; Visit Provider Internal Medicine Gastroenterology
DX: Z86.010 Personal history of colon polyps (principal); K63.5 Polyp of colon
CPT/HCPCS: 00811; 45380; 45385; 99100; J2704

== ENCOUNTER 2023-07-12 07:15 | Observation (INO) | payer MEDICARE, SELFPAY ==
[2023-07-12] VITALS (46 sets, daily range): BP systolic 92–192; BP diastolic 55–120; PULSE 60–99; RESP 9–26; TEMP 36.6–36.8; O2SAT 83–100; BMI 27.7
[2023-07-12] MEDS: LORazepam 2 MG/ML inj 1 MG IVP (07:36)
--- NOTE | 2023-07-12 07:50 | ED_ITS ---
HPI - General Adult General Chief complaint: Seizure Stated complaint: stroke like symptoms Time Seen by Provider: 07/12/23 07:47 History of Present Illness HPI narrative: 82-year-old man presenting to the emergency department with concern of abdominal pain. This is and the left upper abdomen. Had been out with but he has for coffee he and apparently started to have a familiar pain. A friend also than notice that his right leg was shaking. Apparently this can herald a seizure for Mr. Crooks. Has been through this emergency department before with left upper and lower quadrant abdominal pain. He has also had GI bleed associated with anticoagulation. Resulting anemia. History of atrial fibrillation. I am requested to leave a patient room to see Mr. Crooks as he has begun to did show signs concerning to nursing given prior visits where he has appeared to seize ultimately requiring cardiac resuscitation. This trigger seems to be particularly escalating left upper quadrant abdominal pain and then appearance of shaking of his right foot. It appears that in escalation of pain it seems to have triggered seizure-like activity and prolonged obtunded state. Does have a history of small-bowel obstruction. He has not been vomiting. Daughter notes that blood pressures have been somewhat elevated for some time. CT scan 2 weeks ago of abdomen and pelvis was rather unremarkable and no source of bleeding was identified at that time. Related Data Home Medications Medication Instructions Recorded Confirmed atorvastatin 20 mg tablet 20 mg PO HS 04/15/22 02/10/23 lisinopril 5 mg tablet 5 mg PO DAILY 04/15/22 02/10/23 levetiracetam 750 mg tablet 750 mg PO BID 02/10/23 02/10/23 Previous Rx's Medication Instructions Recorded atorvastatin 20 mg tablet 20 mg PO QHS #90 tabs 02/12/23 levetiracetam 750 mg tablet 750 mg PO BID #180 tabs 02/12/23 (Keppra) lisinopril 5 mg tablet 5 mg PO DAILY #90 tabs 02/12/23 Allergies Allergy/AdvReac Type Severity Reaction Status Date / Time No Known Drug Allergies Allergy Verified 04/15/22 06:17 Review of Systems Status of ROS: Reports: unobtainable due to mental status [facility] Medical History Noncompliance with medication regimen ?Z91.148 - Patient's other noncompliance with medication regimen for other reason (ICD-10) Chronic anticoagulation ?Z79.01 - terminal gauger supervisor (current) use of anticoagulants (ICD-10) Seizure disorder ?G40.909 - Epilepsy, unspecified, not intractable, without status epilepticus (ICD-10) SBO (small bowel obstruction) ?K56.609 - Unspecified intestinal obstruction, unspecified as to partial versus complete obstruction (ICD-10) CVA (cerebral vascular accident) ?I63.9 - Cerebral infarction, unspecified (ICD-10) Afib ?I48.91 - Unspecified atrial fibrillation (ICD-10) Pacemaker ?Z95.0 - Presence of cardiac pacemaker (ICD-10) Basal cell carcinoma ?C44.91 - Basal cell carcinoma of skin, unspecified (ICD-10) Coronary artery disease ?I25.10 - Atherosclerotic heart disease of [place] coronary artery without angina pectoris (ICD-10) Diverticulitis ?K57.92 - Diverticulitis of intestine, part unspecified, without perforation or abscess without bleeding (ICD-10) History of complete heart block ?Z86.79 - Personal history of other diseases of the circulatory system (ICD- 10) History of cardiac arrest ?Z86.74 - Personal history of sudden cardiac arrest (ICD-10) 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) History of appendectomy ?Z90.49 - Acquired absence of other specified parts of digestive tract (ICD- 10) History of colostomy Social History Highest level of school completed/degree received: high school graduate Smoking Status: Never smoker Do you use any of these nicotine containing products: None Second hand tobacco smoke exposure: No How often do you have a drink containing alcohol: 2-4 times a month How many standard drinks containing alcohol do you have on a typical day: 1 or 2 How often do you have six or more drinks on one occasion: Never AUDIT-C Alcohol total score: 2 Non-prescribed substance use: denies use Caffeine: No service: Yes ([employer]) Exam Narrative: Exam Narrative: Mr. Crooks does appear somewhat anxious. He is slightly labored but not tachypneic in his breathing. Cranial nerves 2-12 look to be intact. I am called to bedside as he has been complaining of some abdominal pain. He has is hand intermittently on his left side. Seems generally tense of his left upper abdomen and sensitive to even light touch. Is right foot is shaking. Heart is add regular rate and rhythm. Appears to be moving all extremities without difficulty with good strength. He is well perfused. During this exam Mr. Crooks begins to escalate shaking becomes stiff and does appear to be having a seizure. He turns darker color and is unresponsive. Does need some assistance with breathing oxygen saturations dipped a little bit below 90%. This did involve stiffening of his face generally shaking. Stiffening of arms and legs. Const: Vital Signs, click to edit/add: Vital Signs - 24 hr 07/12/23 07:35 07/12/23 07:36 07/12/23 07:42 Temperature Pulse Rate 69 71 69 Respiratory Rate Blood Pressure 142/90 H 146/97 H Pulse Oximetry 98 97 97 Oxygen Delivery Me thod Oxygen Flow Rate 07/12/23 07:45 07/12/23 07:47 07/12/23 07:52 Temperature Pulse Rate 67 67 Respiratory Rate Blood Pressure 141/95 H Pulse Oximetry 97 98 100 Oxygen Delivery Me thod Oxygen Flow Rate 07/12/23 08:00 07/12/23 08:00 07/12/23 08:01 Temperature 98 F Pulse Rate 97 96 Respiratory Rate 11 L 16 Blood Pressure 117/61 Pulse Oximetry 96 95 Oxygen Delivery Me thod Oxygen Flow Rate 07/12/23 08:02 07/12/23 08:12 07/12/23 08:15 Temperature Pulse Rate 95 93 93 Respiratory Rate 9 L 24 Blood Pressure 117/56 L Pulse Oximetry 95 95 92 Oxygen Delivery Me thod Nasal Cannula Oxygen Flow Rate 2 07/12/23 08:22 07/12/23 08:30 07/12/23 08:32 Temperature Pulse Rate 91 90 92 Respiratory Rate 19 23 Blood Pressure 106/60 92/56 L Pulse Oximetry 96 93 90 Oxygen Delivery Me thod Oxygen Flow Rate 07/12/23 08:42 07/12/23 08:45 07/12/23 08:51 Temperature Pulse Rate 88 84 80 Respiratory Rate 16 11 L Blood Pressure 102/63 101/55 L Pulse Oximetry 89 86 L 95 Oxygen Delivery Me thod Oxygen Flow Rate 07/12/23 09:00 07/12/23 09:02 Temperature Pulse Rate 80 87 Respiratory Rate 26 H Blood Pressure 113/60 Pulse Oximetry 93 96 Oxygen Delivery Me thod Oxygen Flow Rate Documenting provider has reviewed patient's vital signs: yes Course Vital Signs Vital signs: Initial Vital Signs Pulse Rate 69 07/12/23 07:35 Blood Pressure 142/90 H 07/12/23 07:35 Blood Pressure Mean 107 H 07/12/23 07:35 Pulse Oximetry 98 07/12/23 07:35 Vital Signs Pulse Rate 69 07/12/23 07:35 Blood Pressure 142/90 H 07/12/23 07:35 Pulse Oximetry 98 07/12/23 07:35 Temperature 98 F 07/12/23 08:00 Pulse Rate 87 07/12/23 09:02 Respiratory Rate 26 H 07/12/23 09:00 Blood Pressure 113/60 07/12/23 09:02 Pulse Oximetry 96 07/12/23 09:02 Oxygen Delivery Method Nasal Cannula 07/12/23 08:02 Oxygen Flow Rate 2 07/12/23 08:02 Medical Decision Making MDM Narrative Medical decision making narrative: As this episode escalated, anticipating this potential at already been getting Ativan. Was given a mg Ativan IV. After about a minute of stiffening/shaking Mr. Crooks did relax. We did support his oxygenation for a time due to sonorous breathing. On reassessment seems to intermittently wince with deep palpation of this left abdomen left upper abdomen. Other times does not appear to react in pain. He is opening his eyes now. History though is prolonged period of obtunded state after seizure activity. Labs have been collected. He is receiving normal saline fluid. Initial lactate returns at 4.1. This was prior to seizure activity. I am not sure there is anything new here. Seems to be somewhat of a stress response/stress-induced seizure than though did appear to be real seizure; this was not a pseudoseizure. I am waiting to speak with Neurology on-call about this event. Keppra levels pending. There had been some history of medication nonadherence in the past. I believe he may have had EEG and more formal neurological evaluation during hospitalization at [place] in the not too distant past. Did managed to reach neurology with habit. Did confirm on EEG noting slowing but not formal diagnosis of epilepsy at that time. Would believe he has epilepsy. Source of seizures may be documented encephalomalacia. There is a question of medication adherence. Would load with 1000 mg of Keppra and also head CT looking for any potential bleed. Head CT is unremarkable for acute abnormality by my read. Did discussed with our hospitalist to be admitted for clearing and further evaluation is necessary. Vitally stable. Lab Data Lab results reviewed: Yes I reviewed the patient's lab results Labs: Lab Results 07/12/23 07/12/23 Range/Units 07:30 08:40 WBC 10.44 (4.50-11.00) K/uL RBC 4.84 (4.30-5.90) m/uL Hgb 15.0 (13.5-17.5) gm/dL Hct 46.8 (37.0-53.0) % MCV 97 (80-100) fL MCH 31 (26-34) pg MCHC 32 (32-36) gm/dL RDW Coeff of Sera 13.6 (11.5-15.5) % Plt Count 269 (140-440) K/uL Neut % (Auto) 46.3 (42.0-72.0) % Lymph % (Auto) 32.6 (20-44) % [place] % (Auto) 14.5 H (0.0-11.0) % Eos % (Auto) 5.6 (0.0-7.0) % Baso % (Auto) 0.7 (0.0-3.0) % Neut # (Auto) 4.85 (1.7-7.0) K/uL Lymph # (Auto) 3.40 H (0.90-2.90) K/uL [place] # (Auto) 1.50 H (0.00-0.90) K/UL Eos # (Auto) 0.58 H (0.00-0.50) K/uL Baso # (Auto) 0.07 (0.00-0.30) K/uL Abs Immat Gran (auto) 0.03 (0.00-0.30) K/uL Imm/Tot Granulo (auto) 0.3 % INR 1.02 (0.91-1.10) APTT 24 (23-33) Seconds Sodium 140 (135-149) mmol/L Potassium 4.4 (3.6-5.1) mmol/L Chloride 104 (96-114) mmol/L Carbon Dioxide 24 (20-32) mmol/L Anion Gap 12 (7-15) mEq/L BUN 22 (7-30) mg/dL Creatinine 1.3 (0.5-1.5) mg/dL Estimated GFR 55 ml/min Glucose 137 H (60-115) mg/dL Lactate 4.1 H* (0.5-1.9) mmol/L Calcium 9.5 (8.4-10.6) mg/dL Troponin I < 0.01 L (0.01-0.04) ng/mL C-Reactive Protein 0.5 (0.5-1.0) mg/dL NT-Pro-B Natriuret Pep 619 pg/mL Lipase 47 (23-300) U/L Lab Acknowledgement Test Added POC Troponin I 0.00 L (0.01-0.04) ng/ml ECG Data Attestation: I personally reviewed and interpreted this ECG as follows: (Normal sinus rhythm rate of 86) Discharge Plan Discharge Clinical Impression: Post-ictal state, Seizure, Abdominal pain Patient Disposition: Admitted As Observation Condition: Stable Prescriptions: No Action atorvastatin 20 mg tablet 20 mg PO HS lisinopril 5 mg tablet 5 mg PO DAILY levetiracetam 750 mg tablet 750 mg PO BID lisinopril 5 mg Tablet 5 mg PO DAILY Qty: 90 0RF levetiracetam [Keppra] 750 mg tablet 750 mg PO BID Qty: 180 3RF atorvastatin 20 mg tablet 20 mg PO QHS Qty: 90 3RF Follow Up/Referrals: Fabienne Gill DO [Primary Care Provider] -
[2023-07-12 08:00] LABS: Basophils Absolute Auto 0.07 K/uL (0.00-0.30); Basophils Percent Auto 0.7 % (0.0-3.0); Eosinophils Absolute Auto 0.58 K/uL (0.00-0.50); Eosinophils Percent Auto 5.6 % (0.0-7.0); Hematocrit 46.8 % (37.0-53.0); Immature Granulocytes Abs Auto 0.03 K/uL (0.00-0.30); Immature Granulocytes Pct Auto 0.3 %; Lymphocytes Percent Auto 32.6 % (20-44); Mean Corpuscular HGB Conc 32 gm/dL (32-36); Mean Corpuscular Hemoglobin 31 pg (26-34); Mean Corpuscular Volume 97 fL (80-100); Monocytes Percent Auto 14.5 % (0.0-11.0); Neutrophils Absolute Auto 4.85 K/uL (1.7-7.0); Neutrophils Percent Auto 46.3 % (42.0-72.0); Platelet Count* 269 K/uL (140-440); RDW Coefficient of Variation % 13.6 % (11.5-15.5); Red Blood Count 4.84 m/uL (4.30-5.90); White Blood Count* 10.44 K/uL (4.50-11.00)
[2023-07-12 08:05] LABS: Slide Review Reflex No
[2023-07-12 08:11] LABS: Lactate* 4.1 mmol/L (0.5-1.9)
[2023-07-12 08:17] LABS: Chloride* 104 mmol/L (96-114); Potassium* 4.4 mmol/L (3.6-5.1); Sodium* 140 mmol/L (135-149)
[2023-07-12 08:19] LABS: Creatinine* 1.3 mg/dL (0.5-1.5); Estimated Glomerular Filt Rate 55 ml/min; Lipase* 47 U/L (23-300)
[2023-07-12 08:20] LABS: Anion Gap 12 mEq/L (7-15); Blood Urea Nitrogen* 22 mg/dL (7-30); Carbon Dioxide* 24 mmol/L (20-32)
[2023-07-12 08:21] LABS: Calcium* 9.5 mg/dL (8.4-10.6); Glucose* 137 mg/dL (60-115)
[2023-07-12 08:23] LABS: C Reactive Protein* 0.5 mg/dL (0.5-1.0)
[2023-07-12 08:31] LABS: NT Pro B Type NatriureticPept* 619 pg/mL
[2023-07-12 08:44] LABS: Troponin I* < 0.01 ng/mL (0.01-0.04)
[2023-07-12] MEDS: 0.9 % SODIUM CHLORIDE 500 ML 500 ML IV (09:00)
[2023-07-12 09:09] LABS: INR 1.02 (0.91-1.10); Partial Thromboplastin Time* 24 Seconds (23-33)
--- NOTE | 2023-07-12 09:52 | CRLHL7_ITS ---
For Patients: As a result of the Century Cures Act, medical imaging exams and procedure reports are released immediately into your electronic medical record. You may view this report before your referring provider. If you have questions, please contact your health care provider. INDICATION: Seizure. COMPARISON: 11/06/2020 TECHNIQUE: CT of the brain/head without the use of IV contrast. Multiplanar axial, coronal, and sagittal reformats were reconstructed. FINDINGS: Right parietal encephalomalacia. Scattered small hypodensities consistent with chronic microvascular ischemic change. No acute or subacute territorial infarct. Atherosclerotic vascular calcifications. No intracranial hemorrhage. No mass, mass effect, or midline shift. Ex vacuo dilatation of the occipital horn of the right lateral ventricle. No overall ventriculomegaly or findings of transependymal flow. No fracture or focal osseous lesion. The mastoid and middle ears are clear. The paranasal sinuses are clear. Included orbit and globe are normal. IMPRESSION: 1. No acute intracranial findings. 2. 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 Please note that all CT scans at this facility use dose modulation, iterative reconstruction, and/or weight-based dosing when appropriate to reduce radiation dose to as low as reasonably achievable. Dictated by Laurel Wayne MD @ 07/12/2023 10:24:50 AM (Electronically Signed)
--- NOTE | 2023-07-12 10:57 | PM.IMHP1 ---
Hospitalist- H&P: HPI History of Present Illness Time Seen by Provider: 10:30 Date Seen: 07/12/23 Chief complaint: Seizure Narrative: Favian Crooks is a 82 year old man with known epilepsy and history of medical noncompliance presents today with prodromal symptoms of evolving seizure. Was out having coffee with friends when he started to have the familiar pain in the right upper quadrant. In a relatively short period of time his right leg started to shake. Friend called 911 EMS for help. On arrival to our emergency department right foot was still shaking and then he had an episode of seizure lasting the better part of 1 minute. Was given lorazepam 1 mg IV. Has been postictal since. When I see him he starting to come 2. Has no recollection of the seizure. Is agreeable to remaining in hospital for observation. Denies any recent trauma, injury, travel, illness. Review of Systems Status of ROS: Reports: 10 or more systems reviewed and unremarkable except as noted in History and below [facility] Medical History Noncompliance with medication regimen ?Z91.148 - Patient's other noncompliance with medication regimen for other reason (ICD-10) Chronic anticoagulation ?Z79.01 - FDC (current) use of anticoagulants (ICD-10) Seizure disorder ?G40.909 - Epilepsy, unspecified, not intractable, without status epilepticus (ICD-10) SBO (small bowel obstruction) ?K56.609 - Unspecified intestinal obstruction, unspecified as to partial versus complete obstruction (ICD-10) CVA (cerebral vascular accident) ?I63.9 - Cerebral infarction, unspecified (ICD-10) Afib ?I48.91 - Unspecified atrial fibrillation (ICD-10) Pacemaker ?Z95.0 - Presence of cardiac pacemaker (ICD-10) Basal cell carcinoma ?C44.91 - Basal cell carcinoma of skin, unspecified (ICD-10) Coronary artery disease ?I25.10 - Atherosclerotic heart disease of [place] coronary artery without angina pectoris (ICD-10) Diverticulitis ?K57.92 - Diverticulitis of intestine, part unspecified, without perforation or abscess without bleeding (ICD-10) History of complete heart block ?Z86.79 - Personal history of other diseases of the circulatory system (ICD-10) History of cardiac arrest ?Z86.74 - Personal history of sudden cardiac arrest (ICD-10) 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) History of appendectomy ?Z90.49 - Acquired absence of other specified parts of digestive tract (ICD-10) History of colostomy Social History Highest level of school completed/degree received: high school graduate Smoking Status: Never smoker Do you use any of these nicotine containing products: None Second hand tobacco smoke exposure: No How often do you have a drink containing alcohol: 2-4 times a month How many standard drinks containing alcohol do you have on a typical day: 1 or 2 How often do you have six or more drinks on one occasion: Never AUDIT-C Alcohol total score: 2 Non-prescribed substance use: denies use Caffeine: No service: Yes ([employer]) Meds Home Medications and Allergies Home Medications Medication Instructions Recorded Confirmed Type atorvastatin 20 mg tablet 20 mg PO HS 04/15/22 02/10/23 History lisinopril 5 mg tablet 5 mg PO DAILY 04/15/22 02/10/23 History levetiracetam 750 mg tablet 750 mg PO BID 02/10/23 02/10/23 History Allergies Allergy/AdvReac Type Severity Reaction Status Date / Time No Known Drug Allergies Allergy Verified 04/15/22 06:17 Exam Narrative: Exam Narrative: Examined patient in the emergency department after he has been stabilized. When I 1st see him he is sound asleep. I hold his hand and call out his name he awakens. Able to carry out a meaningful conversation. No recollection of the seizure. No recollection of how he arrived here in the hospital. Is able to be reoriented. Tells me he has been taking his medications as prescribed. Vision and hearing are grossly normal. Alert and oriented to self, place, time, and reoriented to situation. Friendly, articulate, cooperative. External auditory canals and tympanic membranes are normal bilaterally. Midline nasal septum. Normal buccal mucosa and dentition. No tenderness to palpation over face or teeth. No head neck lymphadenopathy. Neck is supple. Midline trachea. Lungs are clear to auscultation without wheezing, rhonchi, or rales. No CVA tenderness. Heart tones with regular rhythm, normal S1-S2. Abdomen with active bowel sounds, soft, nontender. No rebound or guarding. Moves all 4 extremities. No tremor, asterixis, ataxia. Follows commands. Engages in conversation. Const: Vital Signs, click to edit/add: Vital Signs - 24 hr 07/12/23 07:35 07/12/23 07:36 07/12/23 07:42 Temperature Pulse Rate 69 71 69 Respiratory Rate Blood Pressure 142/90 H 146/97 H Pulse Oximetry 98 97 97 Oxygen Delivery Me thod Oxygen Flow Rate 07/12/23 07:45 07/12/23 07:47 07/12/23 07:52 Temperature Pulse Rate 67 67 Respiratory Rate Blood Pressure 141/95 H Pulse Oximetry 97 98 100 Oxygen Delivery Me thod Oxygen Flow Rate 07/12/23 08:00 07/12/23 08:00 07/12/23 08:01 Temperature 98 F Pulse Rate 97 96 Respiratory Rate 11 L 16 Blood Pressure 117/61 Pulse Oximetry 96 95 Oxygen Delivery Me thod Oxygen Flow Rate 07/12/23 08:02 07/12/23 08:12 07/12/23 08:15 Temperature Pulse Rate 95 93 93 Respiratory Rate 9 L 24 Blood Pressure 117/56 L Pulse Oximetry 95 95 92 Oxygen Delivery Me thod Nasal Cannula Oxygen Flow Rate 2 07/12/23 08:22 07/12/23 08:30 07/12/23 08:32 Temperature Pulse Rate 91 90 92 Respiratory Rate 19 23 Blood Pressure 106/60 92/56 L Pulse Oximetry 96 93 90 Oxygen Delivery Me thod Oxygen Flow Rate 07/12/23 08:42 07/12/23 08:45 07/12/23 08:51 Temperature Pulse Rate 88 84 80 Respiratory Rate 16 11 L Blood Pressure 102/63 101/55 L Pulse Oximetry 89 86 L 95 Oxygen Delivery Me thod Oxygen Flow Rate 07/12/23 09:00 07/12/23 09:02 Temperature Pulse Rate 80 87 Respiratory Rate 26 H Blood Pressure 113/60 Pulse Oximetry 93 96 Oxygen Delivery Me thod Oxygen Flow Rate Hospitalist - H&P: Result Labs Labs: Short CBC 07/12/23 Range/Units 07:30 WBC 10.44 (4.50-11.00) K/uL Hgb 15.0 (13.5-17.5) gm/dL Hct 46.8 (37.0-53.0) % Plt Count 269 (140-440) K/uL BMP 07/12/23 07:30 Sodium 140 Potassium 4.4 Chloride 104 Carbon Dioxide 24 BUN 22 Creatinine 1.3 Glucose 137 H Calcium 9.5 Cardiac Enzymes 07/12/23 Range/Units 07:30 Troponin I < 0.01 L (0.01-0.04) ng/mL Imaging CT scan - head: Attestation: I have reviewed the pertinent imaging results. Radiologist's impression: 07/12/2023 IMPRESSION: 1. No acute intracranial findings. 2. 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 Assessment and Plan Assessment and plan (1) Abdominal pain: Problem comment: Typical prodromal symptom for patient prior to seizure Status: Acute (2) Seizure: Problem comment: - Suspicious that this is related to medical noncompliance. No obvious focal signs or symptoms of other precipitants at this time. - Dr. Tinoco, [facility] Emergency Department, spoke with consulting neurologist who recommended admission for observation. Status: Acute (3) Post-ictal state: Problem comment: Warrants monitoring. Status: Acute (4) Seizure disorder: Problem comment: Loaded with Keppra and will continue with oral Keppra 750 mg twice daily. Await levetiracetam level. Status: Acute (5) Afib: Problem comment: - currently in paced rhythm - not on anticoagulation given GI bleeding 2021 Status: Acute Plan 1. Admit for observation 2. Serial hemoglobin given abdominal pain on presentation and history of GI bleed 3. Monitor for recurrent seizures 4. Patient agreeable to above stated plans and recommendations
--- NOTE | 2023-07-12 11:33 | ED.NURSE ---
Spoke with daughter Itzel via phone and gave update.
[2023-07-12 12:05] LABS: SARS PCR* Negative SARS-CoV-2 (Negative)
--- NOTE | 2023-07-12 13:42 | REH.OT ---
OT/PT: Teresag informed therapies that MD is adding therapy orders. Chart reviewed, spoke with MD and he requests wait to initiate OT/PT tomorrow.
[2023-07-12] MEDS: 0.9 % SODIUM CHLORIDE 1000 ml 1,000 ML 125 ML IV (14:52)
[2023-07-12 15:39] LABS: Lactate* 2.4 mmol/L (0.5-1.9)
--- NOTE | 2023-07-12 18:03 | CRLHL7_ITS ---
For Patients: As a result of the Century Cures Act, medical imaging exams and procedure reports are released immediately into your electronic medical record. You may view this report before your referring provider. If you have questions, please contact your health care provider. INDICATION: Left upper quadrant abdominal pain. TECHNIQUE: CT abdomen and pelvis acquired with 79 cc Isovue 370 IV contrast. COMPARISON: June 26, 2022. FINDINGS: Lower chest: Coronary artery atherosclerosis is present. Liver: Unremarkable. Normal in size and attenuation. No suspicious masses. Gallbladder and bile ducts: Unremarkable. No stones or inflammation. No biliary dilatation. Pancreas: Unremarkable. No mass or inflammation. Spleen: Absent. Adrenal glands: Unremarkable. No nodules. Kidneys: Unremarkable. No suspicious masses, stones, or hydronephrosis. GI tract: Unremarkable. Normal in caliber. No sign of mass or inflammation. Normal appendix. Vasculature: Abdominal aorta is normal in caliber. Mesenteric arteries are patent. Lymph nodes: No lymphadenopathy. Peritoneum/Abdominal Wall: Unremarkable. No sign of mass or infiltration. No free air or significant free fluid. Pelvis: Unremarkable. Bones: Unremarkable for age. IMPRESSION: Unremarkable CT of the abdomen and pelvis. No specific finding to explain left upper quadrant pain. Please note that all CT scans at this facility use dose modulation, iterative reconstruction, and/or weight-based dosing when appropriate to reduce radiation dose to as low as reasonably achievable. Dictated by Freddy Torres MD @ 07/12/2023 7:48:52 PM (Electronically Signed)
--- NOTE | 2023-07-12 18:11 | CRLHL7_ITS ---
For Patients: As a result of the Cures Act, medical imaging exams and procedure reports are released immediately into your electronic medical record. You may view this report before your referring provider. If you have questions, please contact your health care provider. INDICATION: Cough. TECHNIQUE: Chest 2 views. COMPARISON: None. FINDINGS: Cardiovascular and mediastinum: Heart size and vasculature are normal in caliber and appearance. Left chest wall pacemaker device. Lungs and pleural spaces: Lungs are clear. No sign of infiltrate or mass. No sign of pleural effusion. No pneumothorax. Bones and soft tissues: No significant findings. IMPRESSION: No acute or significant findings. Dictated by Micheal Johnson MD @ 07/12/2023 7:51:03 PM (Electronically Signed)
[2023-07-12] MEDS: levETIRAcetam 500 MG TABLET 750 MG PO (20:58)
[2023-07-13 03:00] VITALS: BP 165/105; PULSE 58; RESP 18; TEMP 36.6; O2SAT 98
--- NOTE | 2023-07-13 05:43 | PC.NURSE ---
End of shift: Pt ambulates with walker, GB, SBA. Steady but not conscientious of IV. Utilizes toilet, some incontinence. No BM throughout shift. Pt does not use call light, multiple reminders throughout the night. Bed alarm utilized. IV fluids d/c'd per order. Pt denied any pain. VSS. Pt alert and oriented though seems confused at times, requiring reminders and repetitive statements. Seizure pads remained in place. No seizure activity noted during shift. Tele remained on and monitored.
[2023-07-13 07:09] VITALS: BP 98/66; PULSE 60; PULSE 84; RESP 16; TEMP 36.7; O2SAT 97
[2023-07-13 09:47] LABS: Lactate* 2.7 mmol/L (0.5-1.9)
[2023-07-13 09:59] LABS: Hemoglobin* 13.1 gm/dL (13.5-17.5); Mean Corpuscular HGB Conc 32 gm/dL (32-36); Mean Corpuscular Hemoglobin 31 pg (26-34); Mean Corpuscular Volume 98 fL (80-100); Platelet Count* 240 K/uL (140-440); Red Blood Count 4.19 m/uL (4.30-5.90); White Blood Count* 9.42 K/uL (4.50-11.00)
[2023-07-13 10:04] LABS: Slide Review Reflex No
[2023-07-13 10:07] LABS: Creatinine* 1.4 mg/dL (0.5-1.5); Est. Creatinine Clearance* 33.48; Estimated Glomerular Filt Rate 50 ml/min
[2023-07-13] MEDS: levETIRAcetam 500 MG TABLET 750 MG PO (10:44)
[2023-07-13] MEDS: lisinopriL 5 MG TABLET PO (10:45)
[2023-07-13] MEDS: ACETAMINOPHEN 325 MG TABLET 650 MG PO (10:45)
[2023-07-13] MEDS: SENNOSIDES/DOCUSATE TABLET 1 TAB PO (10:45)
[2023-07-13] MEDS: SODIUM CHLORIDE 0.9 % (FLUSH) 10 ML SYRINGE 5 ML IVF (10:46)
[2023-07-13 12:31] LABS: Albumin* 3.8 g/dL (3.3-5.0)
[2023-07-13 12:34] LABS: Alanine Aminotransferase* 24 U/L (4-50); Alkaline Phosphatase* 72 U/L (40-150); Aspartate Amino Transferase* 88 U/L (12-35); Bilirubin Direct* 0.2 mg/dL (0.0-0.5); Bilirubin Total* 0.9 mg/dL (0.1-1.5)
[2023-07-13 13:00] VITALS: BP 159/74; PULSE 60; RESP 18; TEMP 37.1; O2SAT 96
[2023-07-13] MEDS: 0.9 % SODIUM CHLORIDE 1000 ml 1,000 ML IV (13:31)
[2023-07-13 15:00] VITALS: BP 170/80; PULSE 60; RESP 20; TEMP 36.9; O2SAT 96
--- NOTE | 2023-07-13 15:45 | PC.NURSE ---
Tele indicates Paced rhythm. Eval by Dr. Flores. Pt has good appetite and no dysphagia with medication. Calm and cooperative with nsg interventions. No neurological deficits noted or seizure activity on day shiftl. Right AC IV bleeding and site discontinued. Later left AC IV failed during attempted 1000cc fluid bolus. Primary RN attempted 2 IV restarts w/o success. Lactate level improved with afternoon draw. Per Dr. Flores there is no need to restart IV site or fluid bolus on this patient. Report to Brea NUNEZ for evening shift. New orders pending for discharge to own home.
--- NOTE | 2023-07-13 19:31 | PC.NURSE ---
Discharge Summary: Patient pleasant and cooperative. Afebrile. Denies pain. Up with SBA. Tolerating regular diet with no nausea. Patient discharged home at 1805 with all personal belongings accompanied by daughter. Discharge instructions including diagnosis, mediations and follow up appointment discussed with patient and voiced understanding.
[2023-07-13 21:19] LABS: Keppra (Levetiracetam) <2 ug/mL (10-40)
--- NOTE | 2023-07-15 15:26 | P.DS_ITS ---
DS: Providers Provider Time Seen by Provider: 10:00 Date Seen: 07/13/23 Date of admission: 07/12/23 11:35 Primary care physician: Fabienne Gill DO Admitting Clinician: Toney Flores MD Consults: 07/13/23 09:19 Consult to Occupational Therapy [CONS] Routine Comment: Reason(s) for OT Consult:: Evaluate and Treat Any Restrictions?:: No Restrictions Consult to Physical Therapy [CONS] Routine Comment: Reason(s) for PT Consult:: Evaluate and Treat Any Restrictions?:: No Restrictions Attending Physician on discharge: Toney Flores MD Date of Discharge: 07/13/23 DS: Diagnosis Discharge Diagnosis (1) Seizure: Status: Acute Problem details: - Suspicious that this is related to medical noncompliance. No obvious focal signs or symptoms of other precipitants at this time. - Dr. Tinoco, [facility] Emergency Department, spoke with consulting neurologist who recommended admission for observation, which was undertaken with resolution of all post-ictal symptoms. - No driving for minimum of 3 months from 07/12/2023. (2) Lactic acidosis: Status: Acute Problem details: Post-ictal, resolved (3) Abdominal pain: Status: Acute Problem details: - Typical prodromal symptom for patient prior to seizure - no biochemical laboratory concerns - CT scan of abd/pelvis 07/12/2023: Unremarkable CT of the abdomen and pelvis. No specific finding to explain left upper quadrant pain. (4) Post-ictal state: Status: Acute Problem details: Warrants monitoring. (5) Seizure disorder: Status: Acute Problem details: Loaded with Keppra and will continue with oral Keppra 750 mg twice daily. Await levetiracetam level. (6) Cognitive impairment: Status: Acute Problem details: - 07/13/2023 MOCA: 22/30, with poor executive functioning/problem solving abilities. - Will need to be further evaluated if he desires to drive beyond 3 months of no driving due to seizure on 07/12/2023, (7) Afib: Status: Acute Problem details: - currently in paced rhythm - not on anticoagulation given GI bleeding 2021 DS: Summary Hospital Course Hospital Course: History of present illness: ?Favian Crooks is a 82 year old man with known epilepsy and history of medical noncompliance presents today with prodromal symptoms of evolving seizure. Was out having coffee with friends when he started to have the familiar pain in the right upper quadrant. In a relatively short period of time his right leg started to shake. Friend called 911 EMS for help. On arrival to our emergency department right foot was still shaking and then he had an episode of seizure lasting the better part of 1 minute. Was given lorazepam 1 m g IV. Has been postictal since. When I assess him he is starting to come to. Has no recollection of the seizure. Is agreeable to remaining in hospital for observation. Denies any recent trauma, injury, travel, illness. Does well throughout the remainder of the hospitalization including with serial neurologic testing, assessment with physical occupational therapy. Does have obvious cognitive impairment, with poor executive functioning. Informed patient and family that patient cannot drive for a minimum of 3 months due to his seizure. Should he have another seizure then will need to be a minimum of 3 months from that particular seizure. Additionally inform them that because of his poor cognitive functioning that my recommendation be that he not drive hereafter. I informed them that if he does wish to drive hereafter and the family supports this that he will need to consider having additional cognitive assessment testing in order to determine whether not it is in fact safe for him to drive hereafter. Status at Discharge Functional status at discharge: independent ambulation Time Spent with Patient Time attestation: Total time spent providing and/or coordinating discharge services: Time spent: Greater than 30 minutes Exam Narrative: Exam Narrative: Examined patient in his hospital room and in the hallways as he walks. Able to carry out a meaningful conversation. No recollection of the seizure. No recollection of how he arrived here in the hospital. Tells me he has been taking his medications as prescribed. Vision and hearing are grossly normal. Alert and oriented to self, place, time, and reoriented to situation. Friendly, articulate, cooperative. External auditory canals and tympanic membranes are normal bilaterally. Midline nasal septum. Normal buccal mucosa and dentition. No tenderness to palpation over face or teeth. No head neck lymphadenopathy. Neck is supple. Midline trachea. Lungs are clear to auscultation without wheezing, rhonchi, or rales. No CVA tenderness. Heart tones with regular rhythm, normal S1-S2. Abdomen with active bowel sounds, soft, nontender. No rebound or guarding. Skin is intact. No rashes, petechiae, cyanosis. Moves all 4 extremities. No tremor, asterixis, ataxia. Follows commands. Engages in conversation. Const: Documenting provider has reviewed patient's vital signs: yes DS: Data Data Completed and Pending Completed studies during hospitalization: Procedures Transfusion of Nonautologous Red Blood Cells into Peripheral Vein, Percutaneous Approach (06/25/22) Labs on day of discharge: Preliminary micro results at discharge 07/12/23 08:38 Blood Culture - Preliminary Blood NO GROWTH AFTER 72 HOURS 07/12/23 08:31 Blood Culture - Preliminary Blood NO GROWTH AFTER [address] scan - head: Attestation: I have reviewed the pertinent imaging results. Radiologist's impression: 07/12/2023 IMPRESSION: 1. No acute intracranial findings. 2. 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 CT scan - abdomen: Attestation: I have reviewed the pertinent imaging results. Radiologist's impression: 07/12/2023 Impression No apparent abnormalities. Nothing to explain transient left upper quadrant abdominal pain that preceded his generalized tonic clonic seizure. Discharge Plan Discharge Disposition: Home w/ Parent or Adult Date of Admission: 07/12/23 11:35 Attending Provider on Discharge: Toney Flores Primary Care Provider: Fabienne Gill Condition: Stable Anticipated Discharge Date/Time: 07/13/23 16:30 Discharge Medications: Continued atorvastatin 20 mg tablet 20 mg PO HS lisinopril 5 mg tablet 5 mg PO DAILY levetiracetam 750 mg tablet 750 mg PO BID Discharge Orders: Discharge Order (Routine); Ordered 07/13/23 Ordered By: Toney Flores Patient Education: Recurrent Seizures in Adults (DC), Mild Cognitive Impairment: New Diagnosis (DC), Medication List (DC), Medication Monitoring at [facility] (DC) Additional Instructions: 1. No driving for minimum of 3 months after seizure on 07/12/2023; 2. Needs additional cognitive testing if desires to drive after 3 months of no driving due to seizure on 07/12/2023; 3. Family to set up his medications and make certain he is taking his medications as prescribed; 4. Consider neurology consultation regarding seizure disorder and evolving cognitive impairment. Activity Level: Activity as Tolerated Discharge Diet: Heart Healthy (2 gm sodium, low fat) Follow Up Appointments: Fabienne Gill, DO [Primary Care Provider] - 07/23/23 11:00 am ([facility] with Dr. Gill) Forms: opendorse Info Instructions
== END 2023-07-13 18:05 | disposition home or self-care (01) ==
LOC: ED 10:58 → MEDSURG 11:35
PROVIDERS: Admitting Provider Internal Medicine; Emergency Provider Family Medicine; PCP Family Medicine; Visit Provider Internal Medicine
DX: G40.909 Epilepsy, unspecified, not intractable, without status epilepticus (principal); R41.89 Other symptoms and signs involving cognitive functions and awareness; Z91.148 Patient's other noncompliance with medication regimen for other reason; G25.2 Other specified forms of tremor; I48.91 Unspecified atrial fibrillation; E87.20 Acidosis, unspecified; I10 Essential (primary) hypertension; I25.10 Atherosclerotic heart disease of native coronary artery without angina pectoris; Z95.0 Presence of cardiac pacemaker; Z86.79 Personal history of other diseases of the circulatory system; Z86.69 Personal history of other diseases of the nervous system and sense organs; Z86.74 Personal history of sudden cardiac arrest; Z90.81 Acquired absence of spleen; Z90.49 Acquired absence of other specified parts of digestive tract
CPT/HCPCS: 36415; 70450; 71046; 74177; 80048; 80076; 80177; 81001; 82565; 82962; 83605; 83690; 83880; 84484; 85025; 85027; 85610; 85730; 86140; 87040; 87635; 93005; 94761; 97161; 97165; 99284; 99285; 99291; G0378; A0425; A0427; A9270; J1953; J2060; J7030; J7120; Q9967

== ENCOUNTER 2023-12-10 17:00 | Emergency (ER) | payer MEDICARE, SELFPAY ==
[2023-12-10 17:07] VITALS: BP 210/100; PULSE 65; RESP 18; TEMP 36.4; O2SAT 98; BMI 25.8
--- NOTE | 2023-12-10 17:36 | ED.GENADULT ---
HPI - General Adult General Date Seen: 12/10/23 Chief complaint: Dizziness/Vertigo Stated complaint: vertigo, numbness in L hand Time Seen by Provider: 12/10/23 17:02 Source: patient and other Mode of arrival: ambulatory Limitations: no limitations History of Present Illness HPI narrative: Patient is an 83-year-old male brought in by his neighbor with complaints of lightheadedness for the past several days. He says his symptoms have been persistent, not positional, no worse over the last few days she is having got better. His neighbor checked his blood pressure earlier and it was 184 systolic, so she thought he should be checked out. His left hand felt a little tingly for few minutes earlier although that has resolved. He has not had any weakness, no facial changes, speech difficulty, vertigo. He denies headache, chest pain, shortness of breath, palpitations, syncope, abdominal pain, back pain, nausea, vomiting, diarrhea, black or bloody stools. He may have missed his medicines today. He is not sure whether he is anticoagulated, but does have a history of atrial fibrillation. He also has a history of seizure, has not had any seizure activity. He denies any history of tobacco or alcohol use. Lives independently. Related Data Home Medications Medication Instructions Recorded Confirmed atorvastatin 20 mg tablet 20 mg PO HS 04/15/22 07/12/23 lisinopril 5 mg tablet 5 mg PO DAILY 04/15/22 07/12/23 levetiracetam 750 mg tablet 750 mg PO BID 02/10/23 07/12/23 Allergies Allergy/AdvReac Type Severity Reaction Status Date / Time No Known Drug Allergies Allergy Verified 07/12/23 19:13 Review of Systems Status of ROS: Reports: 6 or more systems reviewed and unremarkable except as noted in History and below [facility] Medical History Noncompliance with medication regimen ?Z91.148 - Patient's other noncompliance with medication regimen for other reason (ICD-10) Chronic anticoagulation ?Z79.01 - longterm (current) use of anticoagulants (ICD-10) Seizure disorder ?G40.909 - Epilepsy, unspecified, not intractable, without status epilepticus (ICD-10) SBO (small bowel obstruction) ?K56.609 - Unspecified intestinal obstruction, unspecified as to partial versus complete obstruction (ICD-10) CVA (cerebral vascular accident) ?I63.9 - Cerebral infarction, unspecified (ICD-10) Afib ?I48.91 - Unspecified atrial fibrillation (ICD-10) Pacemaker ?Z95.0 - Presence of cardiac pacemaker (ICD-10) Basal cell carcinoma ?C44.91 - Basal cell carcinoma of skin, unspecified (ICD-10) Coronary artery disease ?I25.10 - Atherosclerotic heart disease of [place] coronary artery without angina pectoris (ICD-10) Diverticulitis ?K57.92 - Diverticulitis of intestine, part unspecified, without perforation or abscess without bleeding (ICD-10) History of complete heart block ?Z86.79 - Personal history of other diseases of the circulatory system (ICD-10) History of cardiac arrest ?Z86.74 - Personal history of sudden cardiac arrest (ICD-10) 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) History of appendectomy ?Z90.49 - Acquired absence of other specified parts of digestive tract (ICD-10) History of colostomy Social History What is your current living situation?: I presently have a place to live Problems where you live: no known problems Problems where you live details: N/A In the past 12 months, utilities in danger of being shut off: no In past 12 months, lack of transportation kept you from medical appts, meetings, work, or getting things needed for daily living: no In the past 12 mos, have been you worried that your food would run out before you had money to buy more?: never true In the past 12 mos, the food you bought just didn't last and you didn't have money to buy more?: never true Highest level of school completed/degree received: high school graduate Smoking Status: Never smoker Do you use any of these nicotine containing products: None Second hand tobacco smoke exposure: No How often do you have a drink containing alcohol: monthly or less How many standard drinks containing alcohol do you have on a typical day: 1 or 2 How often do you have six or more drinks on one occasion: Never AUDIT-C Alcohol total score: 1 Non-prescribed substance use: denies use Caffeine: Yes How often does anyone, including family, friends and others, physically hurt you: never How often does anyone, including family, friends and others, insult or talk down to you: never How often does anyone, including family, friends and others, threaten you with harm: never How often does anyone, including family, friends and others, scream or curse at you: never service: No Exam Narrative: Exam Narrative: Vital signs as noted above. In general, an alert, well-appearing patient. Ambulatory without difficulty. Head: Normocephalic, atraumatic. Eyes: Pupils are equal reactive. Extraocular movements are full. No nystagmus. Conjunctivae are normal. ENT: Mucous membranes are moist. Neck: Supple without lymphadenopathy. Heart: Regular rate and rhythm, no significant murmur. Lungs: Clear bilaterally. No increased work of breathing, crackles or wheezes. Abdomen: Soft and nontender. Extremities: Well perfused. No edema. No calf tenderness. Pulses intact. Neurologic: Patient is alert and oriented to person and place. Speech is fluent. Face is symmetric. Moves all extremities equally. Strength is equal in upper and lower extremities. Cerebellar function intact by finger-nose testing. Affect: Normal. Skin: Warm and dry. Well perfused. Const: Vital Signs, click to edit/add: Vital Signs - 24 hr 12/10/23 17:07 12/10/23 19:10 Temperature 97.5 F L Pulse Rate [Pulse Oximeter] 65 60 Respiratory Rate 18 16 Blood Pressure [Le ft Upper Arm] 210/100 H Blood Pressure [Ri ght Upper Arm] 182/87 H Pulse Oximetry 98 97 Oxygen Delivery Me thod Room Air Room Air Course Course ED Course: Patient had an EKG here which is paced, regular rhythm, no acute findings. Ventricular rate of 60. Blood pressure was significantly elevated, 210/100. He tells me he is not quite sure if he has taken his blood pressure medicines the past couple of days. His daughter arrived later and said they have a morning and evening system with separate baggies, but agreed that maybe they need a little more organized system so he can tell which days he has taken his medicines or not. Recheck of his blood pressure later in his course was 182/87. He had a normal CBC, a normal metabolic panel, a lactate of 1.6, normal LFTs and a point of care troponin of 0. He had 500 mL of normal saline here. He says he feels quite a bit better, he is no longer lightheaded, he has not had any chest pain or neurologic complaints while here. I think it is reasonable to let him go home, he is comfortable with that. His daughter said that he could stay with her tonight if he wanted but he says he would rather just go home to his own house. He has no complaints at this time, he is ambulatory without difficulty. Return for worsening, new symptoms such as palpitations, fainting, chest pain, neurologic changes. Primary care follow-up next week for recheck. Make sure to take blood pressure medicines as prescribed. Vital Signs Vital signs: Initial Vital Signs Temperature 97.5 F L 12/10/23 17:07 Temperature Source Temporal Artery Scan 12/10/23 17:07 Pulse Rate 65 12/10/23 17:07 Pulse Rhythm Regular 12/10/23 17:07 Respiratory Rate 18 12/10/23 17:07 Blood Pressure 210/100 H 12/10/23 17:07 Blood Pressure Mean 136 H 12/10/23 17:07 Blood Pressure Position Sitting 12/10/23 17:07 Pulse Oximetry 98 12/10/23 17:07 Oxygen Delivery Method Room Air 12/10/23 17:07 Vital Signs Temperature 97.5 F L 12/10/23 17:07 Pulse Rate 65 12/10/23 17:07 Respiratory Rate 18 12/10/23 17:07 Blood Pressure 210/100 H 12/10/23 17:07 Pulse Oximetry 98 12/10/23 17:07 Oxygen Delivery Method Room Air 12/10/23 17:07 Temperature 97.5 F L 12/10/23 17:07 Pulse Rate 60 12/10/23 19:10 Respiratory Rate 16 12/10/23 19:10 Blood Pressure 182/87 H 12/10/23 19:10 Pulse Oximetry 97 12/10/23 19:10 Oxygen Delivery Method Room Air 12/10/23 19:10 Medications Administered Medications: Discontinued Medications Generic Name Dose Route Start Last Admin Trade Name Freq PRN Reason Stop Dose Admin Sodium Chloride 500 mls @ 500 mls/hr 12/10/23 17:10 12/10/23 19:15 0.9 % Sodium Chloride 500 Ml IV 12/10/23 18:09 Infused .Q1H ONE Infusion Medical Decision Making Lab Data Labs: Lab Results 12/10/23 12/10/23 12/10/23 Range/Units 17:11 17:50 17:50 WBC 10.37 (4.50-11.00) K/uL RBC 4.64 (4.30-5.90) m/uL Hgb 14.5 (13.5-17.5) gm/dL Hct 44.4 (37.0-53.0) % MCV 96 (80-100) fL MCH 31 (26-34) pg MCHC 33 (32-36) gm/dL RDW Coeff of Sera 13.0 (11.5-15.5) % Plt Count 279 (140-440) K/uL Neut % (Auto) 65.2 (42.0-72.0) % Lymph % (Auto) 19.9 L (20-44) % [place] % (Auto) 12.9 H (0.0-11.0) % Eos % (Auto) 1.5 (0.0-7.0) % Baso % (Auto) 0.4 (0.0-3.0) % Neut # (Auto) 6.76 (1.7-7.0) K/uL Lymph # (Auto) 2.10 (0.90-2.90) K/uL [place] # (Auto) 1.30 H (0.00-0.90) K/UL Eos # (Auto) 0.16 (0.00-0.50) K/uL Baso # (Auto) 0.04 (0.00-0.30) K/uL Abs Immat Gran (auto) 0.01 (0.00-0.30) K/uL Imm/Tot Granulo (auto) 0.1 % Sodium Cancelled 141 Potassium Cancelled Chloride Carbon Dioxide Anion Gap BUN Creatinine Estimated Creat Clear Estimated GFR Glucose Lactate (0.5-1.9) mmol/L Calcium Magnesium (1.5-2.6) mg/dL Total Bilirubin (0.1-1.5) mg/dL Direct Bilirubin (0.0-0.5) mg/dL AST (12-35) U/L ALT (4-50) U/L Alkaline Phosphatase (40-150) U/L Total Protein (6.0-8.3) g/dL Albumin (3.3-5.0) g/dL POC Troponin I 0.00 L (0.01-0.04) ng/ml 12/10/23 12/10/23 12/10/23 Range/Units 17:50 17:50 17:50 WBC (4.50-11.00) K/uL RBC (4.30-5.90) m/uL Hgb (13.5-17.5) gm/dL Hct (37.0-53.0) % MCV (80-100) fL MCH (26-34) pg MCHC (32-36) gm/dL RDW Coeff of Sera (11.5-15.5) % Plt Count (140-440) K/uL Neut % (Auto) (42.0-72.0) % Lymph % (Auto) (20-44) % [place] % (Auto) (0.0-11.0) % Eos % (Auto) (0.0-7.0) % Baso % (Auto) (0.0-3.0) % Neut # (Auto) (1.7-7.0) K/uL Lymph # (Auto) (0.90-2.90) K/uL [place] # (Auto) (0.00-0.90) K/UL Eos # (Auto) (0.00-0.50) K/uL Baso # (Auto) (0.00-0.30) K/uL Abs Immat Gran (auto) (0.00-0.30) K/uL Imm/Tot Granulo (auto) % Sodium Potassium 4.8 Chloride Cancelled 108 Carbon Dioxide Cancelled 27 Anion Gap Cancelled BUN Creatinine Estimated Creat Clear Estimated GFR Glucose Lactate (0.5-1.9) mmol/L Calcium Magnesium (1.5-2.6) mg/dL Total Bilirubin (0.1-1.5) mg/dL Direct Bilirubin (0.0-0.5) mg/dL AST (12-35) U/L ALT (4-50) U/L Alkaline Phosphatase (40-150) U/L Total Protein (6.0-8.3) g/dL Albumin (3.3-5.0) g/dL POC Troponin I (0.01-0.04) ng/ml 12/10/23 12/10/23 12/10/23 Range/Units 17:50 17:50 17:50 WBC (4.50-11.00) K/uL RBC (4.30-5.90) m/uL Hgb (13.5-17.5) gm/dL Hct (37.0-53.0) % MCV (80-100) fL MCH (26-34) pg MCHC (32-36) gm/dL RDW Coeff of Sera (11.5-15.5) % Plt Count (140-440) K/uL Neut % (Auto) (42.0-72.0) % Lymph % (Auto) (20-44) % [place] % (Auto) (0.0-11.0) % Eos % (Auto) (0.0-7.0) % Baso % (Auto) (0.0-3.0) % Neut # (Auto) (1.7-7.0) K/uL Lymph # (Auto) (0.90-2.90) K/uL [place] # (Auto) (0.00-0.90) K/UL Eos # (Auto) (0.00-0.50) K/uL Baso # (Auto) (0.00-0.30) K/uL Abs Immat Gran (auto) (0.00-0.30) K/uL Imm/Tot Granulo (auto) % Sodium Potassium Chloride Carbon Dioxide Anion Gap 6 L BUN Cancelled 24 Creatinine Cancelled 1.4 Estimated Creat Clear Cancelled Estimated GFR Glucose Lactate (0.5-1.9) mmol/L Calcium Magnesium (1.5-2.6) mg/dL Total Bilirubin (0.1-1.5) mg/dL Direct Bilirubin (0.0-0.5) mg/dL AST (12-35) U/L ALT (4-50) U/L Alkaline Phosphatase (40-150) U/L Total Protein (6.0-8.3) g/dL Albumin (3.3-5.0) g/dL POC Troponin I (0.01-0.04) ng/ml 12/10/23 12/10/2324 Range/Units 17:50 17:50 17:50 WBC (4.50-11.00) K/uL RBC (4.30-5.90) m/uL Hgb (13.5-17.5) gm/dL Hct (37.0-53.0) % MCV (80-100) fL MCH (26-34) pg MCHC (32-36) gm/dL RDW Coeff of Sera (11.5-15.5) % Plt Count (140-440) K/uL Neut % (Auto) (42.0-72.0) % Lymph % (Auto) (20-44) % [place] % (Auto) (0.0-11.0) % Eos % (Auto) (0.0-7.0) % Baso % (Auto) (0.0-3.0) % Neut # (Auto) (1.7-7.0) K/uL Lymph # (Auto) (0.90-2.90) K/uL [place] # (Auto) (0.00-0.90) K/UL Eos # (Auto) (0.00-0.50) K/uL Baso # (Auto) (0.00-0.30) K/uL Abs Immat Gran (auto) (0.00-0.30) K/uL Imm/Tot Granulo (auto) % Sodium Potassium Chloride Carbon Dioxide Anion Gap BUN Creatinine Estimated Creat Clear 35.44 Estimated GFR Cancelled 50 Glucose Cancelled 86 Lactate 1.6 (0.5-1.9) mmol/L Calcium Cancelled Magnesium (1.5-2.6) mg/dL Total Bilirubin (0.1-1.5) mg/dL Direct Bilirubin (0.0-0.5) mg/dL AST (12-35) U/L ALT (4-50) U/L Alkaline Phosphatase (40-150) U/L Total Protein (6.0-8.3) g/dL Albumin (3.3-5.0) g/dL POC Troponin I (0.01-0.04) ng/ml 12/10/23 Range/Units 17:50 WBC (4.50-11.00) K/uL RBC (4.30-5.90) m/uL Hgb (13.5-17.5) gm/dL Hct (37.0-53.0) % MCV (80-100) fL MCH (26-34) pg MCHC (32-36) gm/dL RDW Coeff of Sera (11.5-15.5) % Plt Count (140-440) K/uL Neut % (Auto) (42.0-72.0) % Lymph % (Auto) (20-44) % [place] % (Auto) (0.0-11.0) % Eos % (Auto) (0.0-7.0) % Baso % (Auto) (0.0-3.0) % Neut # (Auto) (1.7-7.0) K/uL Lymph # (Auto) (0.90-2.90) K/uL [place] # (Auto) (0.00-0.90) K/UL Eos # (Auto) (0.00-0.50) K/uL Baso # (Auto) (0.00-0.30) K/uL Abs Immat Gran (auto) (0.00-0.30) K/uL Imm/Tot Granulo (auto) % Sodium Potassium Chloride Carbon Dioxide Anion Gap BUN Creatinine Estimated Creat Clear Estimated GFR Glucose Lactate (0.5-1.9) mmol/L Calcium 9.7 Magnesium 2.5 (1.5-2.6) mg/dL Total Bilirubin 0.9 (0.1-1.5) mg/dL Direct Bilirubin 0.3 (0.0-0.5) mg/dL AST 23 (12-35) U/L ALT 22 (4-50) U/L Alkaline Phosphatase 87 (40-150) U/L Total Protein 7.8 (6.0-8.3) g/dL Albumin 4.4 (3.3-5.0) g/dL POC Troponin I (0.01-0.04) ng/ml Discharge Plan Discharge Clinical Impression: Lightheadedness Patient Disposition: Home, Self-Care Condition: Improved Instructions: Lightheadedness (ED) Additional Instructions: Make sure to take your blood pressure medicines as prescribed. Follow-up with primary care for recheck next week. Return at any time for acute worsening, chest pain, fainting, fevers, or other worsening. Prescriptions: No Action atorvastatin 20 mg tablet 20 mg PO HS lisinopril 5 mg tablet 5 mg PO DAILY levetiracetam 750 mg tablet 750 mg PO BID Follow Up/Referrals: Fabienne Gill DO [Primary Care Provider] - Stand Alone Forms: [email or web address] Info Instructions
[2023-12-10 18:06] LABS: Lactate Sepsis w/Reflex* 1.6 mmol/L (0.5-1.9)
[2023-12-10 18:15] LABS: Basophils Absolute Auto 0.04 K/uL (0.00-0.30); Basophils Percent Auto 0.4 % (0.0-3.0); Eosinophils Absolute Auto 0.16 K/uL (0.00-0.50); Eosinophils Percent Auto 1.5 % (0.0-7.0); Hematocrit 44.4 % (37.0-53.0); Hemoglobin* 14.5 gm/dL (13.5-17.5); Immature Granulocytes Abs Auto 0.01 K/uL (0.00-0.30); Immature Granulocytes Pct Auto 0.1 %; Lymphocytes Percent Auto 19.9 % (20-44); Mean Corpuscular HGB Conc 33 gm/dL (32-36); Mean Corpuscular Hemoglobin 31 pg (26-34); Mean Corpuscular Volume 96 fL (80-100); Monocytes Percent Auto 12.9 % (0.0-11.0); Neutrophils Absolute Auto 6.76 K/uL (1.7-7.0); Neutrophils Percent Auto 65.2 % (42.0-72.0); Platelet Count* 279 K/uL (140-440); Red Blood Count 4.64 m/uL (4.30-5.90); White Blood Count* 10.37 K/uL (4.50-11.00)
[2023-12-10 18:18] LABS: Slide Review Reflex No
[2023-12-10 18:31] LABS: Albumin* 4.4 g/dL (3.3-5.0); Chloride* 108 mmol/L (96-114); Potassium* 4.8 mmol/L (3.6-5.1); Sodium* 141 mmol/L (135-149)
[2023-12-10 18:33] LABS: Anion Gap 6 mEq/L (7-15); Carbon Dioxide* 27 mmol/L (20-32); Creatinine* 1.4 mg/dL (0.5-1.5); Est. Creatinine Clearance* 35.44; Estimated Glomerular Filt Rate 50 ml/min
[2023-12-10 18:34] LABS: Alanine Aminotransferase* 22 U/L (4-50); Alkaline Phosphatase* 87 U/L (40-150); Aspartate Amino Transferase* 23 U/L (12-35); Bilirubin Direct* 0.3 mg/dL (0.0-0.5); Bilirubin Total* 0.9 mg/dL (0.1-1.5); Blood Urea Nitrogen* 24 mg/dL (7-30); Calcium* 9.7 mg/dL (8.4-10.6); Glucose* 86 mg/dL (60-115); Total Protein* 7.8 g/dL (6.0-8.3)
[2023-12-10 18:35] LABS: Magnesium* 2.5 mg/dL (1.5-2.6)
[2023-12-10 19:10] VITALS: BP 182/87; PULSE 60; RESP 16; O2SAT 97
[2023-12-10] MEDS: 0.9 % SODIUM CHLORIDE 500 ML 500 ML IV (19:14)
== END 2023-12-10 19:46 | disposition home or self-care (01) ==
PROVIDERS: Emergency Provider Emergency Medicine; PCP Family Medicine
DX: R42 Dizziness and giddiness (principal)
CPT/HCPCS: 36415; 80048; 80076; 83605; 83735; 84484; 85025; 93005; 99284; J7030

== ENCOUNTER 2024-05-30 11:47 | Emergency (ER) | payer MEDICARE, SELFPAY ==
[2024-05-30] VITALS (37 sets, daily range): BP systolic 95–195; BP diastolic 52–116; PULSE 87–121; RESP 11–26; TEMP 36.6; O2SAT 96–100; BMI 25.1
[2024-05-30] MEDS: LORazepam 2 MG/ML inj IVP ×3 (11:57→12:09)
[2024-05-30] MEDS: 0.9 % SODIUM CHLORIDE 1000 ml 1,000 ML IV (12:10)
--- OUTSIDE RECORDS SUMMARY | 2024-05-30 12:15 | XMS_ITS | Clinical Summary ---
Author Organization [facility] Address [place], [place] [address] Care Team Providers Care Dimensional Integration Engineer Name Role Phone Katiana Caro RN Unavailable [phone] Sarahy Gillis RN Unavailable [phone] Fabienne Gill DO Primary Care Provider Latrice Cole RN Unavailable [phone] Allergies No known active allergies Medications Medication Sig Dispensed Refills Start Date End Date Status lisinopriL (PRINIVIL; ZESTRIL) 5 mg tabletIndications:HTN (hypertension),Stage 3a chronic kidney disease (HC) Take 1 Tablet (5 mg) by mouth two times daily. 180 Tablet 3 06/22/2023 Active atorvastatin (LIPITOR) 20 mg tabletIndications:Hype rlipidemia, unspecified hyperlipidemia type Take 1 Tablet (20 mg) by mouth once daily with evening meal. 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 180 Tablet 3 09/28/2023 Active amLODIPine (NORVASC) 2.5 mg tabletIndications:Hype rtension Take 1 Tablet (2.5 mg) by mouth once daily. 90 Tablet 3 09/28/2023 Active apixaban (ELIQUIS) 2.5 mg tabletIndications:Paro xysmal atrial fibrillation (HC) Take 1 Tablet (2.5 mg) by mouth two times daily. 180 Tablet 12/29/2023 Active Active Problems Problem Noted Date Diagnosed Date Seizure disorder 07/27/2023 Colon polyp 07/07/2023 Overview (07/07/2023): Colonoscopy 06/2023 4-TA, repeat in 5 years, propofol Stage 3a chronic kidney disease 02/18/2023 Aspiration pneumonia due to gastric secretions, unspecified laterality, unspecified part of lung 06/19/2022 Ischemic stroke 11/12/2020 ABRAM (acute kidney injury) 11/12/2020 Overview (11/12/2020): ATN 2/2 cardiac arrest Paroxysmal atrial fibrillation 11/12/2020 Renal cyst 11/12/2020 Skin cancer 05/06/2020 Overview (05/06/2020): Left Nasal Bridge, BCC nodular: Mohs 05/06/2020 Thuy Complete heart block 03/30/2020 Cardiomyopathy, ischemic 03/30/2020 Dizziness 11/12/2014 Hypertension 03/25/2011 Sensorineural hearing loss, bilateral 04/14/2010 Diverticulitis of colon (without mention of hemo rrhage) 02/13/2010 Other abnormal glucose 03/17/2007 Other and unspecified hyperlipidemia 12/02/2006 Coronary atherosclerosis of unspecified type of vessel, [place] or graft 12/02/2006 Resolved Problems Problem Noted Date Diagnosed Date Resolved Date Cardiac arrest 11/12/2020 02/18/2023 Immunizations Name Administration Dates Next Due HIB HbOC (HibTITER) 02/25/2010 Influenza, High-dose Inactivated 10/15/2016 Influenza, IIV3 (Age >=3 years) 06/10/2012 Influenza, Inactivated AIIV4 (Age 65+ Years) Preserv Free 06/22/2023 Influenza, Inactivated IIV3 (Age 65+ Years) Preserv Free 10/19/2017 Meningococcal Vaccine (Menactra) 02/25/2010 Pneumococcal Poly,23-Valent (Pneumovax) 02/26/20 10,12/02/2006 Pneumococcal conj 13-Valent (Prevnar 13) 017 Td (Age >=7 Years) 12/02/2006 Td, Preservative Free (age >= 7 Years) 7 Tdap 01/04/2015 Family History Medical History Relation Name Comments Heart Disease Brother CABG age 79 Stroke Father age 86 Cancer Mother Liver Relation Name Status Comments Brother Father Mother Social History Tobacco Use Types Packs/Day Years Used Date Smoking Tobacco: Never Smokeless Tobacco: Never Tobacco Cessation:Counseling Given: Yes Comments: smokes in the home Alcohol Use Standard Drinks/Week Comments Not Currently 0 (1 standard drink = 0.6 oz pure alcohol) 1-2 per month or less, very seldom PHQ-2 Answer Date Recorded PHQ-2 TOTAL SCORE 0 09/28/2023 Social Connections Answer Date Recorded Frequency of Communication with Friends and Fami ly 0 12/29/2023 Financial Resource Strain Answer Date R ecorded Difficulty of Paying Living Expenses 3 12/29/2023 Difficulty of Paying Living Expenses Not on file 12/29/2023 Food Insecurity Answer Date Recorded Worried About Running Out of Food in the Last Ye ar 1 12/29/2023 Transportation Needs Answer Date Record ed Lack of Transportation (Medical) 1 12/29/2023 Housing Stability Answer Date Recorded Unable to Pay for Housing in the Last Year 1 12/29/2023 Sex and Gender Information Value Date Recorded Sex Assigned at Not on file Gender Identity Not on file Sexual Orientation Not on file Obstetrics History Last Filed Vital Signs Vital Sign Reading Time Taken Comments Blood Pressure 164/72 12/29/2023 11:05 AM CDT Pulse 74 12/29/2023 11:05 AM CDT Temperature 36.2 ??C (97.1 ??F) 06/16/2022 9:05 AM CD T Respiratory Rate 16 06/16/2022 9:05 AM CDT Oxygen Saturation 96% 12/29/2023 11:05 AM CDT Inhaled Oxygen Concentration - - Weight 67.7 kg (149 lb 3.2 oz) 12/29/2023 11:05 AM CDT Height 163.5 cm (5' 4.37) 09/28/2023 8:48 AM CS T Body Mass Index 25.32 09/28/2023 8:48 AM CAR RENTAL AGENT Plan of Treatment Health Maintenance Due Date Last Done Comments Zoster (shingles) series for age 50+ (1 of 2) 1989 RSV vaccine for adults or (1 - 1-dose 60+ series) 1999 COVID-19 vaccine series (2022- season) 2024 10/03/2021, 04/10/2021, 03/18/2021 Influenza for age 65+ 05/21/2024 06/22/2023 , 10/19/2017, 10/15/2016, Additional history exists BMI (ht and wt on same day) for age 18+ 09/28/2024 09/28/2023, 06/22/2023, 07/31/2022, Additional history exists Medicare Wellness for age 65+ 09/28/2024, 07/31/2022, 01/05/2019, Additional history exists Depression screening for age 12+ 10/01/2024 10/01/2023, 09/28/2023, 09/28/2023, Additional history exists Tetanus booster 01/04/2025 01/04/2015, 11/18, 12/02/2006 Tdap Completed 01/04/2015 Pneumococcal series for age 65+ Completed 10/15/2016, 02/25/2010, 12/02/2006 Medical Devices Implanted Type [employer] Manager Device Identifier Shelf Expiration Date Model / Serial / Lot Stent Contour [id number] - [id number] Implanted:Qty: 1 on 11/21/2013 at [employer] Left: [employer] [facility] [id number] / / [id number] Advance Directives Documents on File Type Date Recorded Patient Day Habilitation Supervisor Expl anation Healthcare Directive 06/30/2022 022 * Full Code (Latest Code Status on File) Date Activated Date Inactivated Comments 06/09/2022 6:11 PM 06/13/2022 3:36 PM Question Answer Comments Code Status Discussion: Reviewed Preferences * Full Code Date Activated Date Inactivated Comments 11/06/2020 9:11 PM 11/12/2020 5:58 PM Question Answer Comments Code Status Discussion: Discussed * Full Code Date Activated Date Inactivated Comments 11/06/2020 6:54 PM 11/06/2020 9:11 PM Question Answer Comments Code Status Discussion: Not Discussed * Full Code Date Activated Date Inactivated Comments 11/06/2020 6:54 PM 11/06/2020 6:54 PM Question Answer Comments Code Status Discussion: Not Discussed * Full Code Date Activated Date Inactivated Comments 03/30/2020 10:53 AM 04/03/2020 4:33 PM Care Teams Dimensional Integration Engineer Relationship Specialty Start Date End Date Fabienne Gill DO [address] [place] [id number] PCP - General Internal Medicine 11/15/20 Katiana Caro RN [address] [place] [phone] Data Integrity Consultant - [facility] Registered Nurse 04/05/15 Sarahy Gillis RN [address] [place] [address] [phone] Data Integrity Consultant - [employer] [facility] Registered Nurse 07/21/16 Latrice Cole RN [address] [place] [address] [phone] Data Integrity Consultant - [facility] Registered Nurse 07/19/21
[2024-05-30] MEDS: ROCURONIUM BROMIDE 10 MG/ML inj 75 MG IV (12:17)
--- NOTE | 2024-05-30 12:17 | CRLHL7_ITS ---
For Patients: As a result of the Century Cures Act, medical imaging exams and procedure reports are released immediately into your electronic medical record. You may view this report before your referring provider. If you have questions, please contact your health care provider. INDICATION: STROKE VS SEIZURE VS BLEED. TECHNIQUE: Head CT without contrast. COMPARISON: CT brain dated 07/12/2023. FINDINGS: CSF spaces: Redemonstrated moderate diffuse parenchymal volume loss with commensurate ex vacuo dilatation of the ventricles and sulci. Brain parenchyma and extra-axial spaces: Redemonstrated right parietotemporal encephalomalacia. There are nonspecific low attenuation white matter changes consistent with chronic microvascular disease. No new territorial loss of dukes-white differentiation to suggest an acute transcortical infarction. No sign of mass, hemorrhage, or midline shift. Skull base and calvarium: The visualized paranasal sinuses and mastoid air cells demonstrate no acute or significant findings. The visualized orbits are grossly unremarkable. No evident skull fractures, though the vertex is excluded from the field of view. Partially visualized right trans nasal tube IMPRESSION: No acute intracranial findings. Please note that all CT scans at this facility use dose modulation, iterative reconstruction, and/or weight-based dosing when appropriate to reduce radiation dose to as low as reasonably achievable. Dictated by Taqueria Nuñez MD @ 05/30/2024 12:50:42 PM (Electronically Signed)
[2024-05-30] MEDS: ETOMIDATE 2 MG/ML inj 15 MG IVP (12:18)
--- NOTE | 2024-05-30 12:18 | CRLHL7_ITS ---
For Patients: As a result of the Century Cures Act, medical imaging exams and procedure reports are released immediately into your electronic medical record. You may view this report before your referring provider. If you have questions, please contact your health care provider. INDICATION: Endotracheal tube placement COMPARISON: None TECHNIQUE: A single view study was obtained as a portable CXRSept2023 at 12:22 FINDINGS: As discussed below IMPRESSION: 1. The endotracheal tube is too low ending about 1.7 centimeters from the andry. Generally, it should be between 2 and 6 centimeters. Recommend withdrawing by about 2 centimeters. 2. Pacer normally located 3. Heart size normal. 4. Mild vascular congestion without overt edema. Minimal basilar atelectasis. No pleural effusion or pneumothorax. Dictated by Demetrius Moses MD @ 05/30/2024 12:48:32 PM (Electronically Signed)
--- NOTE | 2024-05-30 12:34 | CRLHL7_ITS ---
For Patients: As a result of the Century Cures Act, medical imaging exams and procedure reports are released immediately into your electronic medical record. You may view this report before your referring provider. If you have questions, please contact your health care provider. CLINICAL HISTORY: Possible seizure. TECHNIQUE: Standard helical CT image acquisition through the head following the administration of intravenous contrast was performed. 3D and MIP reconstructions were performed at a separate workstation and permanently archived. COMPARISON: CTA head and neck dated 02/10/2023. FINDINGS: No intracranial proximal large vessel occlusion. Intracranial atherosclerotic disease, noting heavily calcified plaque around the carotid siphons, with moderate stenoses of the supraclinoid ICAs as well as multifocal moderate stenoses of the intracranial vertebral arteries. No evidence of cerebral aneurysm. No findings to suggest an arterial-venous shunting lesion. The major dural venous sinuses and deep venous system are patent. IMPRESSION: Intracranial atherosclerotic disease with moderate stenoses of the supraclinoid ICAs and intracranial vertebral arteries, as above. Please note that all CT scans at this facility use dose modulation, iterative reconstruction, and/or weight-based dosing when appropriate to reduce radiation dose to as low as reasonably achievable. Dictated by Boyd Lloyd MD @ 05/30/2024 9:56:38 PM (Electronically Signed)
--- NOTE | 2024-05-30 12:34 | CT_ITS ---
Patient: ARPAN ALDANA Facility:?[facility] Patient ID:?[id number] Site Patient ID:?[id number]. Site :?[id number] Study:?CT-Neck Angio Angio 95CC ISOVUE 370 RAPID RESPONSE-05/30/2024 12:49:10 PM Ordering Physician:Jami Morillo Final Report: CLINICAL HISTORY: Possible seizure. TECHNIQUE: Standard helical CT image acquisition through the neck was performed after intravenous contrast bolus enhancement. 3D and MIP reconstructions were performed at a separate workstation and permanently archived. COMPARISON: CTA head and neck dated 02/10/2023. FINDINGS: The origins of the great vessels from the aortic arch are patent. The common carotid arteries are patent. Mild (<50%) atherosclerotic stenoses of the bilateral proximal ICAs by NASCET criteria. The more distal cervical ICAs are patent. 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 The origin of the right vertebral artery is patent. The more distal cervical segments of the vertebral arteries are patent. Tracheostomy tube is present. Right nasal tube is present. IMPRESSION: 1. 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 2. Mild (<50%) atherosclerotic stenoses at the bilateral proximal ICAs by NASCET criteria. Please note that all CT scans at this facility use dose modulation, iterative reconstruction, and/or weight-based dosing when appropriate to reduce radiation dose to as low as reasonably achievable. Dictated by Boyd Lloyd MD @ 05/30/2024 9:53:09 PM Signed by:?Boyd Lloyd MD @05/30/2024 9:53:09 PM (Electronic Signature)
[2024-05-30 12:46] LABS: Basophils Percent Auto 0.5 % (0.0-3.0); Eosinophils Percent Auto 0.8 % (0.0-7.0); Hematocrit 52.8 % (37.0-53.0); Hemoglobin* 15.9 gm/dL (13.5-17.5); Immature Granulocytes Pct Auto 0.4 %; Lymphocytes Percent Auto 15.8 % (20-44); Mean Corpuscular HGB Conc 30 gm/dL (32-36); Mean Corpuscular Hemoglobin 31 pg (26-34); Mean Corpuscular Volume 104 fL (80-100); Monocytes Percent Auto 10.4 % (0.0-11.0); Neutrophils Percent Auto 72.1 % (42.0-72.0); Platelet Count* 262 K/uL (140-440); RDW Coefficient of Variation % 13.1 % (11.5-15.5); Red Blood Count 5.09 m/uL (4.30-5.90); White Blood Count* 13.82 K/uL (4.50-11.00)
[2024-05-30 12:48] LABS: Chloride* 109 mmol/L (96-114)
[2024-05-30 12:49] LABS: Albumin* 5.3 g/dL (3.3-5.0); Sodium* 152 mmol/L (135-149)
[2024-05-30 12:51] LABS: Creatinine* 1.8 mg/dL (0.5-1.5); Est. Creatinine Clearance* 29.56; Estimated Glomerular Filt Rate 37 ml/min
[2024-05-30 12:52] LABS: Alkaline Phosphatase* 95 U/L (40-150); Anion Gap 29 mEq/L (7-15); Aspartate Amino Transferase* 32 U/L (12-35); Bilirubin Direct* 0.6 mg/dL (0.0-0.5); Bilirubin Total* 1.1 mg/dL (0.1-1.5); Carbon Dioxide* 14 mmol/L (20-32)
[2024-05-30 12:53] LABS: Alanine Aminotransferase* 27 U/L (4-50); Blood Urea Nitrogen* 20 mg/dL (7-30); Calcium* 10.8 mg/dL (8.4-10.6); Glucose* 152 mg/dL (60-115); Magnesium* 2.4 mg/dL (1.5-2.6)
[2024-05-30 12:57] LABS: C Reactive Protein* < 0.5 mg/dL (0.5-1.0); Ethanol* < 0.01 % (0.01-0.03)
[2024-05-30 12:58] LABS: Slide Review Reflex No
[2024-05-30 13:03] LABS: Lactate Sepsis w/Reflex* 14.3 mmol/L (0.5-1.9)
--- NOTE | 2024-05-30 13:05 | RESP.RT ---
Patient presenting with seizures requiring intubation. 7.5 ETT, 25 at teeth. Transport to and from CT without incident. HR 108, 100% saturation. Patient placed on vent with settings of R 12, VT 530, Peep 5, 50%.
--- NOTE | 2024-05-30 13:15 | ED_ITS ---
HPI - General Adult General Date Seen: 05/30/24 Chief complaint: Neuro Symptoms/Altered Deficit Stated complaint: left sided pain Time Seen by Provider: 05/30/24 12:40 Source: family, EMS, RN notes reviewed and old records reviewed Mode of arrival: EMS Limitations: altered mental status History of Present Illness HPI narrative: Patient is an 83-year-old male brought in by EMS. I did not obtain any history from the patient as he was unresponsive at the time I entered the room. History from EMS was that they had been called because of some abdominal pain and possible seizure activity. They reported that he had had a little bit of twitching when they 1st saw him but did not have generalized seizure activity until arrival in the ER. His blood sugar was reportedly 151 per paramedics. He does have a history of seizures. Most of the history I obtained was from his daughter who says that he has had episodes like this where seizures brought on by stressful event. His car was towed today and she reports that he was significantly stressed, they were not therefore surprised when he seem to be developing some small seizure activity. This led to calling 911. She does say that she asked him if he took his meds today and he had not yet taken any of his usual medications. She is not sure if he reliably takes all of his medicines. He does live independently. No reported trauma. He is on Eliquis secondary to atrial fibrillation. I had been told he had a history of stroke, but family is not aware of prior stroke. He is normally ambulatory without any neurologic deficits. His daughter tells me he has had other episodes like this where he has come in with seizures, she says that she believes he ended up on a ventilator once although she thinks that may have been related to a heart problem. He does have a history of coronary artery disease and cardiac arrest listed in his chart. These episodes are archived prior to our new EHR, which today I am unable to open due to some sort of problem with the old EHR. Related Data Home Medications ?Medication ?Instructions ?Recorded ?Confirmed atorvastatin 20 mg tablet 20 mg PO HS 04/15/22 05/30/24 lisinopril 5 mg tablet 5 mg PO DAILY 04/15/22 05/30/24 levetiracetam 750 mg tablet 750 mg PO BID 02/10/23 05/30/24 amlodipine 2.5 mg tablet 2.5 mg PO DAILY 05/30/24 05/30/24 apixaban 2.5 mg tablet (Eliquis) 2.5 mg PO BID 05/30/24 05/30/24 Allergies Allergy/AdvReac Type Severity Reaction Status Date / Time No Known Drug Allergies Allergy Verified 07/12/23 19:13 Review of Systems Status of ROS: Reports: unobtainable due to mental status [facility] Medical History Noncompliance with medication regimen ?Z91.148 - Patient's other noncompliance with medication regimen for other reason (ICD-10) 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 (ICD-10) Seizure disorder ?G40.909 - Epilepsy, unspecified, not intractable, without status epilepticus (ICD-10) SBO (small bowel obstruction) ?K56.609 - Unspecified intestinal obstruction, unspecified as to partial versus complete obstruction (ICD-10) CVA (cerebral vascular accident) ?I63.9 - Cerebral infarction, unspecified (ICD-10) Afib ?I48.91 - Unspecified atrial fibrillation (ICD-10) Pacemaker ?Z95.0 - Presence of cardiac pacemaker (ICD-10) Basal cell carcinoma ?C44.91 - Basal cell carcinoma of skin, unspecified (ICD-10) Coronary artery disease ?I25.10 - Atherosclerotic heart disease of [place] coronary artery without angina pectoris (ICD-10) Diverticulitis ?K57.92 - Diverticulitis of intestine, part unspecified, without perforation or abscess without bleeding (ICD-10) History of complete heart block ?Z86.79 - Personal history of other diseases of the circulatory system (ICD- 10) History of cardiac arrest ?Z86.74 - Personal history of sudden cardiac arrest (ICD-10) 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) History of appendectomy ?Z90.49 - Acquired absence of other specified parts of digestive tract (ICD- 10) History of colostomy Social History What is your current living situation?: I presently have a place to live Problems where you live: no known problems Problems where you live details: N/A In the past 12 months, utilities in danger of being shut off: no In past 12 months, lack of transportation kept you from medical appts, meetings, work, or getting things needed for daily living: no In the past 12 mos, have been you worried that your food would run out before you had money to buy more?: never true In the past 12 mos, the food you bought just didn't last and you didn't have money to buy more?: never true Highest level of school completed/degree received: high school graduate Smoking Status: Unknown if ever smoked Do you use any of these nicotine containing products: None Second hand tobacco smoke exposure: No How often do you have a drink containing alcohol: monthly or less How many standard drinks containing alcohol do you have on a typical day: 1 or 2 How often do you have six or more drinks on one occasion: Never AUDIT-C Alcohol total score: 1 Non-prescribed substance use: denies use Caffeine: Yes How often does anyone, including family, friends and others, physically hurt you : never How often does anyone, including family, friends and others, insult or talk down to you: never How often does anyone, including family, friends and others, threaten you with harm: never How often does anyone, including family, friends and others, scream or curse at you: never service: No Exam Narrative: Exam Narrative: Initial exam vital signs reviewed in the room, blood pressure was in the 160 systolic, tachycardic in the 1 teens, O2 sats were 100% on 6 L nasal cannula once he was hooked up to monitoring. When I 1st walked into the room he was actively seizing, he was purple in color, jaw was clenched, he was unresponsive. Peripheral pulses were palpable at that time. More complete exam later in his stay showed normal vital signs, he is a febrile. Head: Normocephalic, atraumatic. Eyes: Pupils equal, reactive, roving horizontal eye movements. ENT: No facial trauma. Bottom dental plate removed. Nasal airway. Neck: Supple. Heart: Fairly regular, no obvious murmur. Lungs: No increased work of breathing, coarse upper airway noises. Abdomen: Nondistended. Extremities: Atraumatic. Pulses intact. Neurologic: Prior to intubation, GCS 6 based on withdrawal of the right leg to pain, though I did not achieve withdrawal from pain in any other other extremities. Toes are upgoing on the right. No response on the left. Const: Vital Signs, click to edit/add: Vital Signs - 24 hr 05/30/24 11:55 05/30/24 11:57 05/30/24 12:00 Temperature Pulse Rate Pulse Rate [Apical ] Pulse Rate [Pulse Oximeter] 95 95 Respiratory Rate 26 H Blood Pressure Blood Pressure [Ri ght Upper Arm] 109/85 149/104 H 195/91 H Pulse Oximetry 96 100 Oxygen Delivery Me thod Room Air Nasal Cannula Oxygen Flow Rate 6 05/30/24 12:00 05/30/24 12:02 05/30/24 12:04 Temperature Pulse Rate Pulse Rate [Apical ] Pulse Rate [Pulse Oximeter] 115 H 110 H Respiratory Rate 21 16 Blood Pressure Blood Pressure [Ri ght Upper Arm] 162/116 H 122/93 H Pulse Oximetry 100 100 100 Oxygen Delivery Me thod Nasal Cannula Nasal Cannula Nasal Cannula Oxygen Flow Rate 6 6 6 05/30/24 12:06 05/30/24 12:08 05/30/24 12:13 Temperature Pulse Rate 112 H Pulse Rate [Apical ] Pulse Rate [Pulse Oximeter] 121 H 116 H Respiratory Rate 18 19 Blood Pressure 133/62 Blood Pressure [Ri ght Upper Arm] 160/90 H 142/78 H Pulse Oximetry 100 100 100 Oxygen Delivery Me thod Nasal Cannula Nasal Cannula Nasal Cannula Oxygen Flow Rate 6 6 6 05/30/24 12:14 05/30/24 12:15 05/30/24 12:16 Temperature Pulse Rate 109 H 106 H 105 H Pulse Rate [Apical ] Pulse Rate [Pulse Oximeter] Respiratory Rate 26 H 19 Blood Pressure 127/57 L Blood Pressure [Ri ght Upper Arm] Pulse Oximetry 100 100 100 Oxygen Delivery Me thod Nasal Cannula Nasal Cannula Nasal Cannula Oxygen Flow Rate 6 6 6 05/30/24 12:17 05/30/24 12:20 05/30/24 12:21 Temperature Pulse Rate 104 H 115 H 114 H Pulse Rate [Apical ] Pulse Rate [Pulse Oximeter] Respiratory Rate 25 H Blood Pressure 122/52 L 112/53 L 104/54 L Blood Pressure [Ri ght Upper Arm] Pulse Oximetry 100 100 Oxygen Delivery Me thod Nasal Cannula Intubated Intubated Oxygen Flow Rate 6 05/30/24 12:24 05/30/24 12:28 05/30/24 12:45 Temperature 97.9 F Pulse Rate 111 H 103 H Pulse Rate [Apical ] 95 Pulse Rate [Pulse Oximeter] Respiratory Rate 11 L 20 Blood Pressure 95/52 L 112/58 L Blood Pressure [Ri ght Upper Arm] 109/85 Pulse Oximetry 96 100 Oxygen Delivery Me thod Intubated Nasal Cannula Intubated Oxygen Flow Rate 4 05/30/24 12:45 05/30/24 12:46 05/30/24 12:47 Temperature Pulse Rate 103 H 102 H 100 Pulse Rate [Apical ] Pulse Rate [Pulse Oximeter] Respiratory Rate Blood Pressure 112/58 L 116/57 L 114/60 Blood Pressure [Ri ght Upper Arm] Pulse Oximetry 100 100 100 Oxygen Delivery Me thod Intubated Intubated Intubated Oxygen Flow Rate 05/30/24 12:50 05/30/24 12:51 05/30/24 12:54 Temperature Pulse Rate 100 97 97 Pulse Rate [Apical ] Pulse Rate [Pulse Oximeter] Respiratory Rate 11 L Blood Pressure 121/63 124/61 125/60 Blood Pressure [Ri ght Upper Arm] Pulse Oximetry 100 100 100 Oxygen Delivery Me thod Intubated Intubated Intubated Oxygen Flow Rate 05/30/24 12:55 05/30/24 12:55 05/30/24 12:55 Temperature Pulse Rate 96 96 96 Pulse Rate [Apical ] Pulse Rate [Pulse Oximeter] Respiratory Rate 12 12 12 Blood Pressure 120/60 120/60 120/60 Blood Pressure [Ri ght Upper Arm] Pulse Oximetry 100 100 100 Oxygen Delivery Me thod Intubated Intubated Intubated Oxygen Flow Rate 05/30/24 12:58 05/30/24 12:59 05/30/24 13:02 Temperature Pulse Rate 94 94 92 Pulse Rate [Apical ] Pulse Rate [Pulse Oximeter] Respiratory Rate 12 12 12 Blood Pressure 112/60 108/55 L 108/53 L Blood Pressure [Ri ght Upper Arm] Pulse Oximetry 100 100 100 Oxygen Delivery Me thod Intubated Intubated Intubated Oxygen Flow Rate 05/30/24 13:03 05/30/24 13:05 09/10/24 13:07 Temperature Pulse Rate 92 94 90 Pulse Rate [Apical ] Pulse Rate [Pulse Oximeter] Respiratory Rate 12 12 12 Blood Pressure 108/58 L 99/60 106/56 L Blood Pressure [Ri ght Upper Arm] Pulse Oximetry 100 100 100 Oxygen Delivery Me thod Intubated Intubated Intubated Oxygen Flow Rate 05/30/24 13:10 05/30/24 13:12 05/30/24 13:14 Temperature Pulse Rate 94 94 92 Pulse Rate [Apical ] Pulse Rate [Pulse Oximeter] Respiratory Rate 12 12 12 Blood Pressure 116/61 129/66 124/66 Blood Pressure [Ri ght Upper Arm] Pulse Oximetry 100 100 100 Oxygen Delivery Me thod Intubated Intubated Intubated Oxygen Flow Rate 05/30/24 13:16 05/30/24 13:18 05/30/24 13:20 Temperature Pulse Rate 91 91 90 Pulse Rate [Apical ] Pulse Rate [Pulse Oximeter] Respiratory Rate 12 12 12 Blood Pressure 117/67 116/64 113/64 Blood Pressure [Ri ght Upper Arm] Pulse Oximetry 100 100 100 Oxygen Delivery Me thod Intubated Intubated Intubated Oxygen Flow Rate 05/30/24 13:22 05/30/24 13:24 Temperature Pulse Rate 89 87 Pulse Rate [Apical ] Pulse Rate [Pulse Oximeter] Respiratory Rate 12 12 Blood Pressure 112/65 114/61 Blood Pressure [Ri ght Upper Arm] Pulse Oximetry 100 100 Oxygen Delivery Me thod Intubated Intubated Oxygen Flow Rate Course Course ED Course: On arrival, he did not have access, paramedics had been unable to place an IV. Therefore he was given initially 2 mg of IM Ativan and an IV was placed. He was hooked up to monitors at that time. He had continued clonic tonic activity for a period of time after giving that 1st IM dose of Ativan, so once we had an IV gave him an additional 2 mg of I the Ativan. He still had a clenched jaw but color was improving, he was on 6 L of nasal cannula oxygen. In time we were able to get his jaw open a bit, he had a leftward gaze and remained unresponsive to painful stimuli. He had an additional 2 mg of Ativan due to concerns of p ossible continued occult seizure activity. He did have equal pupils, no obvious facial droop. I saw him move his right leg spontaneously once, he withdrew his right leg to pain, did not withdraw other extremities to pain. Leftward gaze did resolve and he had roving horizontal eye movements. He remained unresponsive and tolerated a nasal airway without response. Therefore, elected at this time to intubate him in anticipation of neuro imaging. Procedure note: Patient was maintained on cardiac, pulse oximetry and end-tidal CO2 monitoring. Nasal cannula oxygen was continued. He was given 15 mg of etomidate followed by 75 mg of rocuronium and then intubated using the glide scope with a 7 and half tube initially at 23 cm at the teeth. Position was confirmed by visualization of the tube through the cords, equal breath sounds, end-tidal CO2 and chest x-ray. The tube was noted to be a couple cm low was pulled back to 26 cm. Overall he tolerated intubation well without desaturation or significant hypotension. Following intubation he went over for CT scan of head which I reviewed. This does not show any sign of significant hemorrhage by my review, read as negative for acute findings by Radiology. I did speak with the neurologist on-call as well, CT angiogram was added and read has been pending. We have acceptance at the ICU at [facility]. I did load him with Keppra 1000 mg, and we will start a propofol drip for sedation during transfer. Labs notable for mildly elevated white blood cell count of 13.8, hemoglobin is normal, platelets normal. Sodium is high at 152 potassium is normal, CO2 is 14 and he has a gap of 29, lactate markedly elevated at 14 which may be related to his seizure activity. Blood sugar was 152, creatinine 1.8, slightly high relative his to his baseline of 1.3-1.5. Magnesium normal, calcium very minimally elevated at 10.8. LFTs unremarkable, CRP less than 0.5, blood alcohol less than 0.01. Troponin pending. EKG showed probably a sinus tachycardia although there is significant baseline artifact and some irregularity. No obvious ST segment changes. CT angiogram read as follows (prelim):Preliminary Report: 1. No proximal arterial occlusion, aneurysm, dissection, or vascular malformation. 2. 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 At the right vertebral artery is unremarkable. 3. The basilar artery and bilateral posterior cerebral arteries are unremarkable. The internal carotid arteries are unremarkable except for mild vascular plaque. There is a small protrusion inferiorly from the right supraclinoid ICA that may represent a PCOM infundibulum versus small aneurysm and (series 10 image 249). 4. The middle cerebral artery and branches are patent bilaterally. The anterior cerebral arteries and branches are patent bilaterally. 5. Less than 50 percent stenosis of the bilateral internal carotid arteries due to plaque calcified at the bifurcations. 6. Tracheostomy tube. Right nasal tube noted. The retropharyngeal course of the right internal carotid artery. 7. The lung apices are clear. There is a cardiac pulse generator in the left chest wall. We started a propofol drip for sedation. He was unresponsive the remainder of his time in the emergency department. A Jolley was placed. At this time, presentation seems likely to be status epilepticus verses seizure with prolonged postictal period/unresponsiveness. Patient will be transferred at this time to [facility] by EMS ground. Critical care 60 minutes Vital Signs Vital signs: Initial Vital Signs Pulse Rate 95 05/30/24 11:55 Blood Pressure 109/85 05/30/24 11:55 Blood Pressure Mean 93 05/30/24 11:55 Blood Pressure Position Supine 05/30/24 11:55 Pulse Oximetry 96 05/30/24 11:55 Oxygen Delivery Method Room Air 05/30/24 11:55 Vital Signs Pulse Rate 95 05/30/24 11:55 Blood Pressure 109/85 05/30/24 11:55 Pulse Oximetry 96 05/30/24 11:55 Oxygen Delivery Method Room Air 05/30/24 11:55 Temperature 97.9 F 05/30/24 12:28 Pulse Rate 87 05/30/24 13:24 Respiratory Rate 12 05/30/24 13:24 Blood Pressure 114/61 05/30/24 13:24 Pulse Oximetry 100 05/30/24 13:24 Oxygen Delivery Method Intubated 05/30/24 13:24 Oxygen Flow Rate 4 05/30/24 12:28 Medications Administered Medications: Discontinued Medications Generic Name Dose Route Start Last Admin Trade Name Freq PRN Reason Stop Dose Admin Etomidate 15 mg 05/30/24 12:35 05/30/24 12:18 Etomidate 2 Mg/Ml Inj IVP 05/30/24 12:36 15 mg ONCE ONE Administration Levetiracetam 1,000 mg/ Sodium 110 mls @ 440 mls/hr 05/30/24 12:30 05/30/24 13:00 Chloride IVPB 05/30/24 12:44 Infused ONCE ONE Infusion Sodium Chloride 1,000 mls @ 1,000 mls/hr 05/30/24 12:45 05/30/24 13:20 0.9 % Sodium Chloride 1000 Ml IV 05/30/24 13:44 Infused .Q1H SARI Infusion Propofol 1,000 mg in 100 mls @ 11.226 mls/hr 05/30/24 13:01 05/30/24 13:16 Propofol IVPB 25 mcg/kg/min CONT PRN 11.23 mls/hr Administration 25 MCG/KG/MIN Lorazepam 2 - 4 mg 05/30/24 12:35 05/30/24 12:09 Lorazepam 2 Mg/Ml Inj IVP 2 mg Q30M PRN Administration Seizure Activity Rocuronium Reserve 75 mg 05/30/24 12:37 05/30/24 12:17 Rocuronium Reserve 10 Mg/Ml Inj IV 05/30/24 12:38 75 mg ONCE ONE Administration Medical Decision Making Lab Data Labs: Lab Results 05/30/24 Range/Units 11:57 WBC 13.82 H (4.50-11.00) K/uL RBC 5.09 (4.30-5.90) m/uL Hgb 15.9 (13.5-17.5) gm/dL Hct 52.8 (37.0-53.0) % MCV 104 H (80-100) fL MCH 31 (26-34) pg MCHC 30 L (32-36) gm/dL RDW Coeff of Sera 13.1 (11.5-15.5) % Plt Count 262 (140-440) K/uL Neut % (Auto) 72.1 H (42.0-72.0) % Lymph % (Auto) 15.8 L (20-44) % [place] % (Auto) 10.4 (0.0-11.0) % Eos % (Auto) 0.8 (0.0-7.0) % Baso % (Auto) 0.5 (0.0-3.0) % Neut # (Auto) 10.00 H (1.7-7.0) K/uL Lymph # (Auto) 2.20 (0.90-2.90) K/uL [place] # (Auto) 1.40 H (0.00-0.90) K/UL Eos # (Auto) 0.10 (0.00-0.50) K/uL Baso # (Auto) 0.10 (0.00-0.30) K/uL Abs Immat Gran (auto) 0.10 (0.00-0.30) K/uL Imm/Tot Granulo (auto) 0.4 % Sodium 152 H (135-149) mmol/L Potassium 4.0 (3.6-5.1) mmol/L Chloride 109 (96-114) mmol/L Carbon Dioxide 14 L (20-32) mmol/L Anion Gap 29 H (7-15) mEq/L BUN 20 (7-30) mg/dL Creatinine 1.8 H (0.5-1.5) mg/dL Estimated Creat Clear 29.56 Estimated GFR 37 ml/min Glucose 152 H (60-115) mg/dL Lactate 14.3 H* (0.5-1.9) mmol/L Calcium 10.8 H (8.4-10.6) mg/dL Magnesium 2.4 (1.5-2.6) mg/dL Total Bilirubin 1.1 (0.1-1.5) mg/dL Direct Bilirubin 0.6 H (0.0-0.5) mg/dL AST 32 (12-35) U/L ALT 27 (4-50) U/L Alkaline Phosphatase 95 (40-150) U/L C-Reactive Protein < 0.5 L (0.5-1.0) mg/dL Total Protein 9.0 H (6.0-8.3) g/dL Albumin 5.3 H (3.3-5.0) g/dL Ethyl Alcohol < 0.01 L (0.01-0.03) % Discharge Plan Discharge Patient Disposition: [facility] Prescriptions: No Action atorvastatin 20 mg tablet 20 mg PO HS lisinopril 5 mg tablet 5 mg PO DAILY amlodipine 2.5 mg tablet 2.5 mg PO DAILY Eliquis 2.5 mg tablet 2.5 mg PO BID levetiracetam 750 mg tablet 750 mg PO BID Stand Alone Forms: MyHealth Info Instructions
[2024-05-30] MEDS: propofoL 1,000 MG/100 ML ML 11.23 MG IVPB (13:16)
== END 2024-05-30 13:40 | disposition short-term general hospital (02) ==
PROVIDERS: Emergency Provider Emergency Medicine; PCP Family Medicine
DX: R40.4 Transient alteration of awareness (principal)
CPT/HCPCS: 31500; 36415; 70450; 70496; 70498; 71045; 80048; 80076; 81001; 82077; 83605; 83735; 84484; 85025; 86140; 93005; 96365; 96375; 99285; 99291; A0425; A0427; A0434; J1953; J2060; J2704; J7030; Q9967